=== PATIENT | male | born 1935 | race Caucasian/White ===

== ENCOUNTER → 2016-04-24 | Outpatient (CLI) | payer BC ==
[~2016-04-24] MED LIST: ACET-1325; ALFU10TA30 PO; ASPI81TA28 PO; ATOR-22 PO; FRS/40 PO; LORA-741 PO; NTRGSL/4 UT; OFLO0.3S OP; PANT40TA PO; PRED1SUS3 OPL; SPIR50TA2 PO
== END | disposition home or self-care (01) ==
LOC: C.LABSPEC 12:17
PROVIDERS: ATTEND Urology
DX: N52.9 Male erectile dysfunction, unspecified (principal); R97.20 Elevated prostate specific antigen [PSA]

== ENCOUNTER → 2016-06-21 | Outpatient (CLI) | payer BC ==
[~2016-06-21] MED LIST changes: +ALFU10TA2 PO; -ALFU10TA30 PO; +ALLO100T PO; +CYCL0.052 OP; +PROM12.57 PO; +PROP10TA7 PO; +PRT/20 PO; +TEST1INJ2 INJ
[2016-06-21 18:03] LABS: BASO % 0.3 %; BASO ABS # 0.02 K/uL (0-0.2); COMPLETE YES; EOS % 1.2 %; HEMATOCRIT 50.5 % (42-52); IG% 0.3 %; LYMPH % 20.3 %; LYMPH ABS # 1.58 K/uL (1.2-3.4); MEAN CELL VOLUME 97.7 fL (80-100); MEAN CORPUSCULAR HEMOGLOBIN 31.5 pg (25-34); MEAN CORPUSCULAR HGB CONC 32.3 g/dl (32-36); MEAN PLATELET VOLUME 11.3 fL (7.4-10.4); MONO % 11.7 %; NEUT % 66.2 %; PLATELET COUNT 146 K/uL (130-400); RED BLOOD COUNT 5.17 M/uL (4.7-6.1); WHITE BLOOD COUNT 7.79 K/uL (4.8-10.8)
--- NOTE | 2016-06-27 11:33 | CODING QUERY MEDICAL NECESSITY ---
CQSUPPORTING DIAGNOSIS NEEDED A supporting diagnosis is required for the test/procedure performed on this patient in order for us to be reimbursed by the patient's insurance. Please provide a supporting diagnosis for the following test/procedure listed below next to the test name along with your signature. *If there is no additional diagnosis for this patient that would support the following test/procedure please document that below next to the test/procedure. Test(s)/Procedure(s) that require a supporting diagnosis: DOS 06/21/16 BLOOD COUNT Provider Signature: Date: Thank you Loraine Garcia [employer] Once completed, please kindly fax back to [phone] For questions please call [phone]
== END | disposition home or self-care (01) ==
LOC: C.LABSPEC 17:48
PROVIDERS: ATTEND Internal Medicine
DX: M19.072 Primary osteoarthritis, left ankle and foot (principal); R60.9 Edema, unspecified

== ENCOUNTER → 2016-12-17 | Outpatient (CLI) | payer BC ==
[~2016-12-17] MED LIST changes: -ALFU10TA2 PO; +ALFU10TA30 PO; -ALLO100T PO; -CYCL0.052 OP; -PROM12.57 PO; -PROP10TA7 PO; -PRT/20 PO; -TEST1INJ2 INJ
[2016-12-17 13:43] LABS: ALT/SGPT 25 U/L (12-78); AST/SGOT 18 U/L (15-37); BLOOD UREA NITROGEN 38 mg/dl (7-18); BUN/CREATININE RATIO 20.8 (10-20); CALCIUM 8.7 mg/dl (8.5-10.1); CARBON DIOXIDE 28 mmol/L (21-32); CHLORIDE 102 mmol/L (98-107); CHOLESTEROL 108 mg/dl (0-200); CREATININE 1.84 mg/dl (0.60-1.40); GLUCOSE 93 mg/dl (70-99); POTASSIUM 3.7 mmol/L (3.5-5.1); SODIUM 139 mmol/L (136-145)
[2016-12-17 13:47] LABS: ALB/GLOB RATIO 1.1 (0.9-2); ALKALINE PHOSPHATASE 90 U/L (45-117); CHOLESTEROL/HDL RATIO 2.4; HDL CHOLESTEROL 45 mg/dl; TRIGLYCERIDES 168 mg/dl (0-150); VERY LOW DENSITY LIPOPROT CALC 34 mg/dl
== END | disposition home or self-care (01) ==
LOC: C.LABSPEC 12:10
PROVIDERS: ATTEND Internal Medicine
DX: Z00.00 Encounter for general adult medical examination without abnormal findings (principal); N17.9 Acute kidney failure, unspecified; R73.9 Hyperglycemia, unspecified; I10 Essential (primary) hypertension; N40.0 Benign prostatic hyperplasia without lower urinary tract symptoms

== ENCOUNTER → 2017-01-27 | Outpatient (CLI) | payer BC ==
[~2017-01-27] MED LIST changes: +ALFU10TA2 PO; -ALFU10TA30 PO
[2017-01-27 14:31] LABS: BLOOD UREA NITROGEN 29 mg/dl (7-18); BUN/CREATININE RATIO 20.2 (10-20); CALCIUM 8.7 mg/dl (8.5-10.1); CARBON DIOXIDE 35 mmol/L (21-32); CHLORIDE 102 mmol/L (98-107); CHOLESTEROL 102 mg/dl (0-200); CHOLESTEROL/HDL RATIO 2.1; CREATININE 1.44 mg/dl (0.60-1.40); GLUCOSE 111 mg/dl (70-99); HDL CHOLESTEROL 48 mg/dl; POTASSIUM 4.5 mmol/L (3.5-5.1); SODIUM 139 mmol/L (136-145); TRIGLYCERIDES 149 mg/dl (0-150); VERY LOW DENSITY LIPOPROT CALC 30 mg/dl
== END | disposition home or self-care (01) ==
LOC: C.LABSPEC 13:11
PROVIDERS: ATTEND Internal Medicine
DX: Z00.00 Encounter for general adult medical examination without abnormal findings (principal); I25.10 Atherosclerotic heart disease of native coronary artery without angina pectoris; E78.5 Hyperlipidemia, unspecified

== ENCOUNTER 2017-01-30 09:32 | Observation (INO) | payer BC ==
[~2017-01-30] VITALS: Ht 162.6 cm; Wt 66.0 kg
[2017-01-30] MEDS ORDERED: SODIUM CHLORIDE 0.9% 1000ML 1,000 ML IV SCH (10:11)
--- NOTE | 2017-01-30 10:36 | DIAGNOSTIC IMAGING REPORT ---
CHEST ONE VIEW PORTABLE CLINICAL HISTORY: Stroke COMPARISON STUDY: 03/20/2015 FINDINGS: There are postsurgical changes of a midline sternotomy. The heart is mildly enlarged. There are low lung volumes with hypoventilatory changes the lung bases. There is mild blunting of the right lateral costophrenic angle.[ There is no evidence of failure. IMPRESSION: Low lung volumes with hypoventilatory changes at the lung bases. Suspected small right pleural effusion. Electronically signed by: Avni Lawler M.D. 01/30/2017 10:35 AM Dictated Date/Time: 01/30/2017 10:34 AM
[2017-01-30 10:43] LABS: HEMATOCRIT 52.5 % (42-52); MEAN CELL VOLUME 98.7 fL (80-100); MEAN CORPUSCULAR HEMOGLOBIN 31.4 pg (25-34); MEAN CORPUSCULAR HGB CONC 31.8 g/dl (32-36); RED BLOOD COUNT 5.32 M/uL (4.7-6.1); WHITE BLOOD COUNT 8.71 K/uL (4.8-10.8)
[2017-01-30 10:55] LABS: INR 1.1 (0.9-1.1); PARTIAL THROMBOPLASTIN RATIO 1.1; PROTHROMBIN TIME (PATIENT) 11.2 SECONDS (9.0-12.0)
[2017-01-30 10:58] LABS: BUN/CREATININE RATIO 22.1 (10-20); CALCIUM 8.9 mg/dl (8.5-10.1); CREATININE 1.31 mg/dl (0.60-1.40); MAGNESIUM 2.6 mg/dl (1.8-2.4); POTASSIUM 4.5 mmol/L (3.5-5.1)
[2017-01-30 11:05] LABS: BASO % 0.1 %; BASO ABS # 0.01 K/uL (0-0.2); COMPLETE YES; EOS % 1.6 %; IG% 0.7 %; LYMPH % 15.6 %; LYMPH ABS # 1.36 K/uL (1.2-3.4); MEAN PLATELET VOLUME 11.2 fL (7.4-10.4); MONO % 7.9 %; NEUT % 74.1 %; PLATELET COUNT 64 K/uL (130-400)
--- NOTE | 2017-01-30 11:19 | DIAGNOSTIC IMAGING REPORT ---
HEAD WITHOUT CONTRAST (CT) CT DOSE: 638.56 mGycm HISTORY: Mental status change Stroke TECHNIQUE: Multiaxial CT images of the head were performed without the use of intravenous contrast. A dose lowering technique was utilized adhering to the principles of ALARA. Comparison: 01/30/2012 Findings: The paranasal sinuses and mastoid air cells are clear. The calvarium and skull base are intact. The ventricles and sulci are within normal limits. There is no mass, hematoma, midline shift, or acute infarct. Impression: No acute intracranial abnormality. The above report was generated using voice recognition software. It may contain grammatical, syntax or spelling errors. Electronically signed by: Hal Walker M.D. 01/30/2017 11:18 AM Dictated Date/Time: 01/30/2017 11:15 AM
[2017-01-30] MEDS ORDERED: PROM12.57 PO (12:00)
[2017-01-30] MEDS ORDERED: PRT/20 PO (12:00)
[2017-01-30] MEDS ORDERED: ALLO100T PO (12:00)
[2017-01-30] MEDS ORDERED: FRS/40 PO ×2 (12:00)
[2017-01-30] MEDS ORDERED: PROP10TA7 PO (12:03)
[2017-01-30] MEDS ORDERED: CYCL0.052 OP (12:03)
[2017-01-30] MEDS ORDERED: TEST1INJ2 INJ (12:03)
[2017-01-30] MEDS ORDERED: NITROGLYCERIN 0.4 MG SL PER TAB CHARGE UT PRN (12:15)
[2017-01-30] MEDS ORDERED: CLOPIDOGREL BISULFATE 75 MG TAB PO ONE (12:15)
[2017-01-30] MEDS ORDERED: CLOPIDOGREL BISULFATE 75 MG TAB ONE (12:35)
[2017-01-30 13:13] VITALS: O2SAT 95
[2017-01-30] MEDS ORDERED: IV FLUIDS COMPLETED PRN (13:45)
[2017-01-30 14:11] VITALS: Ht 162.6 cm; Wt 66.0 kg
[2017-01-30 14:56] VITALS: BP 128/63; PULSE 53; TEMP 36.7; O2SAT 94
--- NOTE | 2017-01-30 15:25 | EMERGENCY ROOM VISIT NOTE ---
History Report prepared by Deandre: Mark Thomson Under the Supervision of: Dr. Davie Bond M.D. First contact with patient: 09:59 Chief Complaint: WEAKNESS Stated Complaint: NUMBNESS IN LEFT HAND Nursing Triage Summary: left arm weakness since this AM History of Present Illness The patient is a 81 year old male who presents to the Emergency Room with complaints of constant left hand weakness beginning at 6 AM this morning upon wakening. 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 His symptoms were present upon waking up today four hours ago (6:00 am). His symptoms were not present upon falling asleep last night 13 hours ago (9:00 pm) . The patient has a history of CVA in 2012 for which is on aspirin. He is not on any other blood thinning medication. He had a right carotid endarterectomy following this initial stroke. The patient denies any numbness, problems with speech, headache, neck pain, chest pain, SOB, abdominal pain, diarrhea, or urinary symptoms. He denies any new problems with balance, or problems with his vision. Source of History: patient Onset: 6 AM today Position: hand (left) Quality: other (weakness) Timing: constant Associated Symptoms: No headache, No neck pain, No chest pain, No SOB, No abdominal pain, No diarrhea, No urinary symptoms, No numbness Note: The patient denies any problems with speech. He denies any new problems with balance, or problems with his vision. Review of Systems See HPI for pertinent positives & negatives. A total of 10 systems reviewed and were otherwise negative. Past Medical & Surgical Medical Problems: (1) Acute bronchitis (2) CVA (cerebral vascular accident) (3) Heart disease (4) TIA/?CVA (5) TIA/?CVA, CAD, Surgical Problems: (1) H/O carotid endarterectomy Family History No pertinent family history stated. Social History Smoking Status: Never Smoker Alcohol Use: none Marital Status: Current/Historical Medications Scheduled Alfuzosin Hcl (Uroxatral), 10 MG PO DINNER Allopurinol (Zyloprim), 100 MG PO QAM Aspirin (Aspirin Ec), 81 MG PO 1700 Atorvastatin (Lipitor), 20 MG PO DINNER Cyclosporine (Ophth) (Restasis), 1 DROP OP BID Furosemide (Lasix), 80 MG PO QAM Furosemide (Lasix), 40 MG PO NOON Lorazepam (Ativan), 0.5 MG PO BID Nitroglycerin (Nitrostat), 0.4 MG UT PRN Pantoprazole (Protonix), 20 MG PO QAM Propranolol (Inderal), 10 MG PO QAM Spironolactone (Aldactone), 25 MG PO QAM Testosterone Cypionate (Testosterone Cypionate), 100 MG INJ MONTHLY Scheduled PRN Promethazine (Phenergan ), 25 MG PO UD PRN for Nausea Allergies Coded Allergies: No Known Allergies (Verified , 01/30/17) Physical Exam Vital Signs Date Time Temp Pulse Resp B/P (MAP) Pulse Ox O2 Delivery O2 Flow Rate FiO2 01/30/17 12:00 63 18 125/74 95 Room Air 01/30/17 11:33 56 22 117/76 95 Room Air 01/30/17 10:34 97 Room Air 01/30/17 10:34 55 01/30/17 09:35 36.7 59 16 132/69 96 Room Air Physical Exam Constitutional: Vital signs reviewed. Eyes: Pupils are equal round reactive to light. Conjunctiva are noninjected. ENT: Pharynx is clear without erythema or exudate. Mucous membranes are moist. Neck supple without meningeal signs. Respiratory: Clear to auscultation bilaterally. Breath sounds are equal bilaterally. Cardiovascular: Regular rate and rhythm. No rubs or gallops. GI: Soft, nondistended and nontender. Bowel sounds are present. Musculoskeletal: No peripheral edema. No lower extremity tenderness. Integumentary: No cyanosis. Neurological: The patient is awake and alert. Cranial nerves II-XII are intact. Sensation is intact to light touch all extremities. Normal speech. No limb ataxia. Left pronator drift. 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 Psychiatric: Normal affect. Medical Decision & Procedures ER Provider Diagnostic Interpretation: Radiology results as stated below per my review and the radiologist's interpretation: HEAD WITHOUT CONTRAST (CT) Findings: The paranasal sinuses and mastoid air cells are clear. The calvarium and skull base are intact. The ventricles and sulci are within normal limits. There is no mass, hematoma, midline shift, or acute infarct. Impression: No acute intracranial abnormality. The above report was generated using voice recognition software. It may contain grammatical, syntax or spelling errors. Electronically signed by: Hal Walker M.D. 01/30/2017 11:18 AM CHEST ONE VIEW PORTABLE FINDINGS: There are postsurgical changes of a midline sternotomy. The heart is mildly enlarged. There are low lung volumes with hypoventilatory changes the lung bases. There is mild blunting of the right lateral costophrenic angle.[ There is no evidence of failure. IMPRESSION: Low lung volumes with hypoventilatory changes at the lung bases. Suspected small right pleural effusion. Electronically signed by: Avni Lawler M.D. Laboratory Results 01/30/17 10:25 Red Blood Count 5.32, Mean Corpuscular Volume 98.7, Mean Corpuscular Hemoglobin 31.4, Mean Corpuscular Hemoglobin Concent 31.8, Mean Platelet Volume 11.2, Neutrophils (%) (Auto) 74.1, Lymphocytes (%) (Auto) 15.6, Monocytes (%) (Auto) 7.9, Eosinophils (%) (Auto) 1.6, Basophils (%) (Auto) 0.1, Neutrophils # (Auto) 6.45, Lymphocytes # (Auto) 1.36, Monocytes # (Auto) 0.69, Eosinophils # (Auto) 0.14, Basophils # (Auto) 0.01 01/30/17 10:25 Test 01/30/17 10:25 01/30/17 10:32 White Blood Count 8.71 K/uL (4.8-10.8) Red Blood Count 5.32 M/uL (4.7-6.1) Hemoglobin 16.7 g/dL (14.0-18.0) Hematocrit 52.5 % (42-52) Mean Corpuscular Volume 98.7 fL (80-100) Mean Corpuscular Hemoglobin 31.4 pg (25-34) Mean Corpuscular Hemoglobin Concent 31.8 g/dl (32-36) Platelet Count 64 K/uL (130-400) Mean Platelet Volume 11.2 fL (7.4-10.4) Neutrophils (%) (Auto) 74.1 % Lymphocytes (%) (Auto) 15.6 % Monocytes (%) (Auto) 7.9 % Eosinophils (%) (Auto) 1.6 % Basophils (%) (Auto) 0.1 % Neutrophils # (Auto) 6.45 K/uL (1.4-6.5) Lymphocytes # (Auto) 1.36 K/uL (1.2-3.4) Monocytes # (Auto) 0.69 K/uL (0.11-0.59) Eosinophils # (Auto) 0.14 K/uL (0-0.5) Basophils # (Auto) 0.01 K/uL (0-0.2) RDW Standard Deviation 56.3 fL (36.4-46.3) RDW Coefficient of Variation 15.5 % (11.5-14.5) Immature Granulocyte % (Auto) 0.7 % Immature Granulocyte # (Auto) 0.06 K/uL (0.00-0.02) Prothrombin Time 11.2 SECONDS (9.0-12.0) Prothromb Time International Ratio 1.1 (0.9-1.1) Activated Partial Thromboplast Time 27.4 SECONDS (21.0-31.0) Partial Thromboplastin Ratio 1.1 Anion Gap 4.0 mmol/L (3-11) Est Creatinine Clear Calc Drug Dose 38.3 ml/min Estimated GFR () 59.6 Estimated GFR (Non- 51.4 BUN/Creatinine Ratio 22.1 (10-20) Calcium Level 8.9 mg/dl (8.5-10.1) Magnesium Level 2.6 mg/dl (1.8-2.4) Bedside Glucose 89 mg/dl (70-99) Laboratory results as reviewed by me. Medications Administered Medications (Trade) Dose Ordered Sig/Tripp Route Start Time Stop Time Status Last Admin Dose Admin Sodium Chloride 1,000 ml @ 50 mls/hr Q20H IV 01/30/17 10:11 01/30/17 13:43 DC 01/30/17 11:20 50 MLS/HR Clopidogrel Bisulfate (plAVix TAB) 75 mg STK-MED ONCE .ROUTE 01/30/17 12:35 01/30/17 12:36 DC 01/30/17 12:37 75 MG ECG Indication: weakness Rate (beats per minute): 49 Rhythm: sinus bradycardia Findings: no acute ischemic change, no ectopy, other (Left atrial enlargement. ) ED Course 1005: The patient was evaluated in room C4. A complete history and physical exam was performed. 1011: Ordered Sodium Chloride 1000 ml @ 50 mls/hr IV. 1127: Upon reevaluation, the patient is resting comfortably. He denies any chest pain or shortness of breath. I discussed tonight's findings with him. He verbalized agreement of the treatment plan. The patient was discharged home. Medical Decision This is a 81-year-old male who presents with left hand weakness and numbness. Differential diagnosis includes CVA, TIA, cervical radiculopathy, spinal cord lesion, metabolic derangement, intracranial mass. I did perform a limited focused review of portions of the patient's old chart on the electronic medical record. The patient had MRI brain in 2011 which showed a right frontal infarct. I did evaluate the patient as noted above. The patient is presenting with left handed weakness and numbness starting this morning. He woke up with the symptoms and is outside the TPA window. On exam he has dysesthesia and weakness to the left hand with left-sided pronator drift. He denies having any neck discomfort. IV access was established. The patient was placed on a continuous frame polisher. I did order and personally review the patient's 12- lead EKG and chest x-ray as described above. I did order and review the patient 's blood work as noted in the electronic medical record. His troponin is slightly elevated but he has had no chest discomfort or shortness of breath. I did order a CT of the head. I did review the images myself as well as the radiology report as described above. There is no evidence of acute CVA or mass or bleed. I did discuss the test results with the patient. I did recommend hospitalization for MRI of the brain as well as repeat cardiac enzymes. I did discuss the case with his primary care physician and the hospitalist. Medication Reconcilliation Current Medication List: was personally reviewed by me Blood Pressure Screening Patient's blood pressure: Elevated blood pressure Blood pressure disposition: Referred to PCP Consults Time Called: 1123 Consulting Physician: Dr. Gamez -[facility] Returned Call: [phone] Gamez of [facility]. We discussed the patient and his results. The patient will be further evaluated by Dr. Pierce Gamboa. Impression Primary Impression: Acute CVA (cerebrovascular accident) Additional Impression: Elevated troponin Scribe Attestation The scribe's documentation has been prepared under my direct and personally reviewed by me in its entirety. I confirm that the note above accurately reflects all work, treatment, procedures, and medical decision making performed by me. Departure Information Dispostion Being Evaluated By Hospitalist Referrals Mario Burgos M.D. (PCP) Patient Instructions My [facility] Stroke History Time Last Known Well 2100 01/29/17 Stroke t-PA Criteria Reviewed Does NOT meet criteria for t-PA Reason t-PA Not Given Treatment not indicated (outside of time-window) Problem Qualifiers
[2017-01-30 16:27] LABS: CKMB/CK RATIO 3.8 (0-3.0)
[2017-01-30] MEDS ORDERED: ASPIRIN 81 MG ECTAB PO SCH (17:00)
[2017-01-30] MEDS ORDERED: GADAVIST IV PRN (17:00)
--- NOTE | 2017-01-30 17:39 | DIAGNOSTIC IMAGING REPORT ---
MRI OF THE BRAIN WITHOUT AND WITH IV CONTRAST CLINICAL HISTORY: TIA/?CVA. Left hand numbness. COMPARISON STUDY: MRI of the brain January 30, [address] performed earlier today. TECHNIQUE: Utilizing a 1.5 Odalys magnet and dedicated coil, multiplanar, multiecho imaging of the brain was performed pre and postcontrast administration. IV administration of 6.5 mL of Gadavist contrast was uneventful. FINDINGS: There is a 1 cm focus of restricted diffusion within the anterior right parietal lobe shown on axial image 17 of 46. No mass effect or hemorrhage is present. No additional sites of acute infarction are present. Ventricular system is stable. Basilar cisterns are patent. There are no extra-axial collections. Flow-voids for the major intracranial vessels are present. There is no intracranial mass or pathologic enhancement. Calvarial signal is maintained. There is a small amount of fluid within left mastoid air cells. Scattered white matter T2 hyperintense foci suggest small vessel disease. IMPRESSION: 1. Small acute infarct within the right parietal lobe. No mass effect or hemorrhage. 2. Small amount of fluid within the left mastoid air cells. 3. Mild small vessel disease. Electronically signed by: Dion Salinas M.D. 01/30/2017 5:37 PM Dictated Date/Time: 01/30/2017 5:06 PM
[2017-01-30 19:07] VITALS: BP 102/63; PULSE 55; TEMP 36.7; O2SAT 93
[2017-01-30] MEDS ORDERED: LORAZEPAM 0.5 MG TAB PO PRN (20:45)
--- NOTE | 2017-01-30 20:56 | History and Physical ---
History & Physical Date of Service Jan 30, 2017. History & Physical ADMISSION DATE: 01/30/2017 CHIEF COMPLAINT: 81-year-old male admitted with acute onset of weakness in his left- hand. PRESENT ILLNESS: patient with multiple medical problems including coronary artery disease, status post one-vessel coronary artery bypass,bioprosthetic aortic valve, hypercholesterolemia, arterial hypertension, atherosclerotic vascular disease, status post right carotid endarterectomy, essential tremor, gout, hypogonadism. Patient woke up this morning on 6:00. He was complaining of weakness in his left hand. 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 He denied any associated headache or dizziness or lightheadedness. No blurred vision. No chest pain or shortness of breath. No nausea or vomiting. Patient called the office with these symptoms. I asked him to come to the emergency room for evaluation. He was continuing to complain of weakness in the left hand. No other associated symptoms. His workup was initiated. CT scan of the head without contrast did not show any abnormality. His weakness persisted. I saw the patient in the emergency room and he was admitted for further evaluation. PAST MEDICAL HISTORY: * coronary artery disease. He had a non-ST segment elevation myocardial infarction in 2005. He underwent stenting of the mid LAD. He also underwent angioplasty of the first diagonal branch. Angioplasty of the right coronary artery in the midportion was done but was not successful. * Subsequently on 03/23/2012 he underwent one-vessel coronary artery bypass graft with saphenous vein graft to the O2 sats marginal artery. This was the same time that he had his aortic valve replaced. * Aortic valve replacement for critical aortic stenosis. 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 * Arterial hypertension. Long-standing. treated. * Hyperlipidemia. * gout. Has had multiple attacks in the past. He is on allopurinol. * Essential tremor. Cone told with low-dose propranolol. * Hypogonadism. He does receive IM testosterone injections every month. 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 * Prostate enlargement and elevated PSA. Workup has been negative for any evidence of prostate cancer. * Duodenal and gastric ulcers diagnosed in 2013. * Hospitalization in 2011 with left hand weakness. At that time he had a small q right frontal CVA. * Left cataract surgery on 12/14/2014 * Right cataract surgery on 12/28/2014 * Left inguinal hernia repair on 06/02/2014 * Left carotid endarterectomy on 06/17/2013. SOCIAL HISTORY: he is . Has 3 children. Review of any smoking. No alcohol. No excessive coffee or tea. He is retired. He worked mostly in [employer],. FAMILY HISTORY: his father age 79 had a CVA. His mother at age 94 of natural causes. He has 2 brothers and 2 sisters. One sister had three-vessel coronary artery bypass graft at age 70. She is in her mid 70s now and doing well. One brother had a myocardial infarction also in his 70s. Doing well. One brother has dementia. One sister had breast cancer. She is now 8 years old and doing well. Children are doing well. ALLERGIES: NONE CURRENT MEDICATIONS: * allopurinol 100 mg daily * Multivitamin 2 tablets daily * Aspirin 81 mg daily * Uroxatral 10 mg daily * Lipitor 20 mg daily * Aldactone 25 mg daily * Lorazepam 0.5 mg twice a day if needed for anxiety * Furosemide 40 mg tablets. 2 tablets in the morning and one tablet in the evening * Propranolol 10 mg 3 times a day * Pantoprazole 40 mg twice a day * Restasis 0.5% drops one drop in each eye twice a day * Depakote testosterone 300 mg IM every month. REVIEW OF SYSTEMS: denied any headache. No dizziness no lightheadedness. No recent change in his vision. No earache sore throat or neck pain. No chest pain no shortness of breath. No abdominal pain. No nausea no vomiting. No problem with his bowel movements. No problem urinating. 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 Well nourished. No acute distress.weight 66 kg, height was 62.6 cm, BMI 25. VITAL SIGNS : Blood Pressure : 132/69, pulse 59, respirations 16, temperature 36.7, oxygen saturation 96% on room air. SKIN : Warm and dry. No rash. HEENT :Decreased vision left eye. Post cataract surgery. No mucosal abnormalities in his nose mouth or throat. NECK : Supple. No adenopathy. No thyromegaly. No JVD. status post left carotid endarterectomy. Bilateral carotid bruit. More pronounced on the left side. CHEST : Normal. Scar from prior surgery HEART: Regular heart tones with 2/6 systolic murmur. No rub no gallop. LUNGS: Clear. Normal breath sounds. ABDOMEN: Soft nontender. No organomegaly or masses. Good bowel sounds. BACK: No spine or CVA tenderness. EXTREMITIES : No edema clubbing or cyanosis. No joint or muscle tenderness. absent left dorsalis pedis pulse. other pulses were normal. NEUROLOGICAL EXAMINATION: He is alert and oriented. 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 Speech was normal. Balance and equilibrium normal. LABORATORY TEST; WBC count 8710, hemoglobin 16.7, hematocrit 52.5, platelet count 64,000. Prothrombin time 11.2, INR 1.1, PTT 27.4. Sodium 141, potassium 4.5, chloride 105, CO2 32, BUN 29, creatinine 1.31, glucose 96, calcium 8.9, magnesium 2.6, troponin I 0.062. CT scan of the head without contrast showed no abnormality. Chest x-ray showed evidence of hypoventilation. Small right pleural effusion noted. Electrocardiogram showed sinus bradycardia. No acute changes noted. 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 Most likely dealing with TIA or CVA. * Coronary artery disease with history of one-vessel coronary artery bypass graft and history of stenting of other vessels in the past. * Bioprosthetic aortic valve * Arterial hypertension * Hyperlipidemia * Essential tremor * Bradycardia * Thrombocytopenia * Gout * Hypogonadism * Enlargement of the prostate * Anxiety PLAN: patient was admitted to PCU with telemetry. Resuscitation level I. all his laboratory tests were ordered. Cardiac isoenzymes and electrocardiograms ordered. Echocardiogram was ordered. MRI of the brain without one and with contrast ordered. Carotid ultrasound was also ordered. He is on aspirin 81 mg daily. I added Plavix 75 mg daily. We'll complete his workup as indicated above. We'll decide on any further treatment. Will monitor the weakness in his left hand. As noted there is no other weakness or other limitation as far as his activity. We'll repeat a CBC. Patient was admitted under observation status.
[2017-01-30] MEDS ORDERED: ATORVASTATIN 20 MG TAB PO SCH (21:00)
--- NOTE | 2017-01-30 22:21 | DIAGNOSTIC IMAGING REPORT ---
CAROTID ARTERY ULTRASOUND CLINICAL HISTORY: Transient ischemic attack. Previous left carotid endarterectomy. COMPARISON STUDY: Carotid ultrasound June 16, 2014. TECHNIQUE: Real-time, grayscale, and color Doppler sonography of the carotid and vertebral arteries was performed. Images were viewed in the transverse and longitudinal planes. FINDINGS: There is moderate atherosclerotic plaque. Velocity measurements are listed below. COMMON CAROTID PEAK SYSTOLIC VELOCITY (CM/S): RIGHT 76 LEFT 77 ICA PEAK SYSTOLIC VELOCITY (CM/S): RIGHT 76 LEFT 72 The systolic ratios between the internal to common carotid arteries are normal. Antegrade flow is seen in the vertebral arteries. The external carotid arteries are patent. Elevated peak systolic velocity of 264 cm/s within the left external carotid artery was noted. Similar findings were shown on exam of June 16, 2014. Blood pressure could not be obtained in this patient due to IV. IMPRESSION: 1. No evidence of a hemodynamically significant stenosis within the bilateral internal carotid and common carotid arteries. Moderate atherosclerotic plaque within the proximal right internal carotid artery. 2. 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 Electronically signed by: Dion Salinas M.D. 01/30/2017 10:19 PM Dictated Date/Time: 01/30/2017 10:16 PM
[2017-01-31 00:02] VITALS: BP 92/52; PULSE 60; TEMP 36.7; O2SAT 96
[2017-01-31 03:25] LABS: HEMATOCRIT 48.6 % (42-52); MEAN CELL VOLUME 98.2 fL (80-100); MEAN CORPUSCULAR HEMOGLOBIN 31.3 pg (25-34); MEAN CORPUSCULAR HGB CONC 31.9 g/dl (32-36); RED BLOOD COUNT 4.95 M/uL (4.7-6.1); WHITE BLOOD COUNT 7.83 K/uL (4.8-10.8)
[2017-01-31 03:41] LABS: BUN/CREATININE RATIO 19.9 (10-20); CALCIUM 8.1 mg/dl (8.5-10.1); CREATININE 1.26 mg/dl (0.60-1.40); POTASSIUM 4.2 mmol/L (3.5-5.1)
[2017-01-31 03:53] LABS: MEAN PLATELET VOLUME 10.9 fL (7.4-10.4); PLATELET COUNT 53 K/uL (130-400)
[2017-01-31 03:54] VITALS: BP 118/69; PULSE 60; TEMP 36.6
[2017-01-31 03:54] LABS: CKMB/CK RATIO 3.7 (0-3.0)
[2017-01-31 04:12] LABS: COMPLETE YES; EOS % 2.4 %; IG% 0.6 %; LYMPH % 22.5 %; LYMPH ABS # 1.76 K/uL (1.2-3.4); MONO % 9.5 %
[2017-01-31 07:39] VITALS: BP 144/82; PULSE 64; TEMP 36.5; O2SAT 96
[2017-01-31] MEDS ORDERED: PROPRANOLOL HCL 10 MG TAB PO SCH (09:00)
[2017-01-31] MEDS ORDERED: SPIRONOLACTONE 25 MG TAB PO SCH (09:00)
[2017-01-31] MEDS ORDERED: ALLOPURINOL 100 MG TAB PO SCH (09:00)
[2017-01-31] MEDS ORDERED: ALFUZosin TAB 10 MG TAB PO SCH (09:00)
[2017-01-31] MEDS ORDERED: CLOPIDOGREL BISULFATE 75 MG TAB PO SCH (09:00)
--- NOTE | 2017-01-31 10:40 | ECHOCARDIOGRAM REPORT ---
*NOTICE TO RECEIVING REPUBLICAN AGENCY This information is strictly Confidential and protected under [place] law. [place] law prohibits you from making any further disclosure of this information unless further disclosure is expressly permitted by the written consent of the person to whom it pertains or is authorized by law. A general authorization for the release of medical or other information is not sufficient for this purpose. Hospital accepts no responsibility if the information is made available to any other person, INCLUDING THE PATIENT. Interpretation Summary * Name: TONY HUANG Study Date: 01/31/2017 08:48 AM BP: 118/69 mmHg * Patient Location: [facility] HR: 60 * : 1935 (M/d/yyyy) Gender: Male Height: 64 in * Age: 81 yrs Ethnicity: [place] Weight: 145 lb * Ordering Physician: Mario Burgos * Performed By: Mona Man RDCS * * Reason For Study: TIA * BSA: 1.7 m2 * The study was technically limited. * Compared to prior study, changes are noted. * -- Conclusions -- * There is a bioprosthetic aortic valve. * The prosthetic aortic valve is not well visualized. * The gradient is abnormal for this prosthetic aortic valve suggesting moderate stenosis. * No bioprosthetic aortic valve regurgitation visualized. * Ejection Fraction = 65-70%. * There is mild concentric left ventricular hypertrophy. * The left atrium is moderately dilated. * Diastolic dysfunction, Grade II (pseudonormalization pattern). * There is mild mitral regurgitation. * There is mild tricuspid regurgitation. * Th estimated systolic PAP is 33mmhg. * Injection of contrast documented no interatrial shunt. Procedure Details * A complete two-dimensional transthoracic echocardiogram was performed (2D, M-mode, Doppler and color flow Doppler). * A saline contrast injection was performed to assess for cardiac shunting. * The injection was performed through an intravenous line in the right arm. * The attending nurse who injected the saline contrast was PATRICE LUIS RN. * A total of 20 cc of agitated saline was given. Left Ventricle * The left ventricle is normal in size. * There is mild concentric left ventricular hypertrophy. * Ejection Fraction = 65-70%. * Left ventricular systolic function is normal. * Septal motion is consistent with post-operative state. Right Ventricle * The right ventricle is normal size. * The right ventricular systolic function is normal as assessed by tricuspid annular plane systolic excursion (TAPSE) (normal >1.5 cm). Atria * The left atrium is moderately dilated. * The right atrium is moderately dilated. * Injection of contrast documented no interatrial shunt. Mitral Valve * There is mild mitral annular calcification. * There is no mitral valve stenosis. * There is mild mitral regurgitation. Tricuspid Valve * The tricuspid valve is normal. * There is no tricuspid stenosis. * There is mild tricuspid regurgitation. * Th estimated systolic PAP is 33mmhg. Aortic Valve * There is a bioprosthetic aortic valve. * The prosthetic aortic valve is not well visualized. * The gradient is abnormal for this prosthetic aortic valve. * The gradient is abnormal for this prosthetic aortic valve suggesting moderate stenosis. No bioprosthetic aortic valve regurgitation visualized. * The valve opening cannot be assessed due to imaging artifacts from the prosthesis. Pulmonic Valve * The pulmonary valve is inadequately visualized, but the Doppler data is adequate for interpretation. * There is no pulmonic valvular stenosis. * Mild pulmonic valvular regurgitation. Great Vessels * The aortic root is normal size. Pericardium/Pleural * There is no pericardial effusion. Great Vessels * Normal inferior vena cava diameter and respiratory variation suggests normal central venous pressure. Left Ventricular Diastolic Function * Diastolic dysfunction, Grade II (pseudonormalization pattern). MMode 2D Measurements and Calculations IVSd 1.3 cm IVSs 2.2 cm LVIDd 3.9 cm LVIDs 2.6 cm LVPWd 1.3 cm LVPWs 1.5 cm IVS/LVPW 1.0 FS 33.0 % EDV(Teich) 65.4 ml ESV(Teich) 24.7 ml EF(Teich) 62.3 % EDV(cubed) 58.7 ml ESV(cubed) 17.6 ml EF(cubed) 70.0 % % IVS thick 66.1 % % LVPW thick 13.1 % LV mass(C)d 180.9 grams LV mass(C)dI 106.0 grams/m\S\2 LV mass(C)s 190.0 grams LV mass(C)sI 111.4 grams/m\S\2 SV(Teich) 40.7 ml SI(Teich) 23.9 ml/m\S\2 SV(cubed) 41.1 ml SI(cubed) 24.1 ml/m\S\2 LA dimension 4.4 cm asc Aorta Diam 3.0 cm LVOT diam 1.6 cm LVOT area 2.0 cm\S\2 LVAd ap4 21.8 cm\S\2 LVLd ap4 7.6 cm EDV(MOD-sp4) 54.2 ml EDV(sp4-el) 53.5 ml LVAs ap4 11.6 cm\S\2 LVLs ap4 5.6 cm ESV(MOD-sp4) 20.1 ml ESV(sp4-el) 20.5 ml EF(MOD-sp4) 62.9 % EF(sp4-el) 61.7 % LVAd ap2 21.9 cm\S\2 LVLd ap2 7.3 cm EDV(MOD-sp2) 54.9 ml EDV(sp2-el) 55.6 ml LVAs ap2 11.5 cm\S\2 LVLs ap2 5.7 cm ESV(MOD-sp2) 20.4 ml ESV(sp2-el) 19.5 ml EF(MOD-sp2) 62.8 % EF(sp2-el) 64.8 % LVLd %diff -3.21 % EDV(MOD-bp) 55.2 ml LVLs %diff 2.5 % ESV(MOD-bp) 19.9 ml EF(MOD-bp) 64.0 % SV(MOD-sp4) 34.1 ml SI(MOD-sp4) 20.0 ml/m\S\2 SV(MOD-sp2) 34.5 ml SI(MOD-sp2) 20.2 ml/m\S\2 SV(MOD-bp) 35.3 ml SI(MOD-bp) 20.7 ml/m\S\2 SV(sp4-el) 33.0 ml SI(sp4-el) 19.3 ml/m\S\2 SV(sp2-el) 36.1 ml SI(sp2-el) 21.1 ml/m\S\2 Doppler Measurements and Calculations MV E max prosper 87.2 cm/sec MV A max prosper 69.8 cm/sec MV E/A 1.2 MV dec time 0.25 sec Ao V2 max 312.1 cm/sec Ao max PG 40.1 mmHg Ao max PG (full) 36.4 mmHg Ao V2 mean 234.9 cm/sec Ao mean PG 26.2 mmHg Ao V2 VTI 88.1 cm CATHERINE(V,A) 0.61 cm\S\2 CATHERINE(V,D) 0.61 cm\S\2 LV V1 max PG 3.7 mmHg LV V1 max 96.6 cm/sec MR max prosper 273.5 cm/sec MR max PG 29.9 mmHg PA V2 max 39.6 cm/sec PA max PG 0.63 mmHg PI end-d prosper 104.8 cm/sec TR max prosper 253.8 cm/sec
[2017-01-31 11:31] VITALS: BP 134/79; PULSE 59; TEMP 36.7; O2SAT 95
[2017-01-31] MEDS ORDERED: PLV75 PO (11:56)
--- NOTE | 2017-01-31 11:59 | Discharge Instructions ---
Discharge Instructions Date of Service Jan 31, 2017. Admission Reason for Admission: Tia/?Cva Discharge Discharge Diagnosis / Problem: R parietal CVA, Coronarry artery disease Discharge Goals Goal(s): Decrease discomfort, Improve function, Increase independence, Improve disease control Activity Recommendations Activity Limitations: resume your previous activity . Instructions / Follow-Up Instructions / Follow-Up Dr Gamez in 1 week Current Hospital Diet Patient's current hospital diet: AHA Diet (Heart Healthy) Discharge Diet Recommended Diet: AHA Diet (Heart Healthy) Pending Studies Studies pending at discharge: no Laboratory Results Lipid Panel Test 01/27/17 08:30 Range/Units Triglycerides Level 149 0-150 mg/dl Cholesterol Level 102 0-200 mg/dl HDL Cholesterol 48 mg/dl LDL Cholesterol Direct 53 mg/dl Cholesterol/HDL Ratio 2.1 LDL Cholesterol, Calculated mg/dl Medical Emergencies . Who to Call and When: Medical Emergencies: If at any time you feel your situation is an emergency, please call 911 immediately. . Non-Emergent Contact Non-Emergency issues call your: Primary Care Provider . . "Provider Documentation" section prepared by Mario Gamez. . VTE Core Measure Inpt VTE Proph given/why not?: Other Anticoagulation
[2017-01-31 12:26] VITALS: BP 134/79; PULSE 59; TEMP 36.7; O2SAT 95
--- NOTE | 2017-01-31 23:21 | Progress Note ---
Progress Note Date of Service Jan 31, 2017. 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 His medical problems also include coronary artery disease, bioprosthetic aortic, arterial hypertension, diastolic dysfunction, hyperlipidemia. Patient was admitted. His workup was initiated. His MRI of the brain showed evidence of acute right parietal CVA. Very minimal .his echocardiogram showed evidence of diastolic dysfunction. Bioprosthetic aortic. His ejection fraction was normal He is doing. Denied any new problems or complaints.weakness in vice president client services resolved. No headache or dizziness or lightheadedness. No chest pain no shortness of breath. No abdominal pain. No pain in his back or extremities. He is ambulating very one. EXAMINATION Well-developed in no distress. Vital signs blood pressure 134/86, pulse 69, respiration 18, temperature 36.7, oxygen saturation 95% on room air. Skin is warm and dry. No rash. HEENT decreased vision left eye appears chronic. Neck supple without lymph node or thyroid enlargement. No JVD. Bilateral carotid bruit. Heart regular heart sounds with 2/6 systolic murmur. Lungs are clear. Abdomen soft nontender. Extremities no edema clubbing or cyanosis Neurological examination: Alert and oriented without deficits. His left vice president client services is normal. Laboratory tests his troponin was 0.053. It is coming down. His platelet count remained decreased. ASSESSMENT * Right parietal CVA * Coronary artery disease * Bioprosthetic aortic * Diastolic dysfunction * Thrombocytopenia * Hypercholesterolemia PLAN: * he is doing well. Deficit resolved. * He is on Plavix and aspirin * We need to monitor his platelet count * He was discharged home today * Followup in the office in one week
== END 2017-01-31 13:05 | disposition home or self-care (01) ==
LOC: C.EDB 09:33 → EDBEDREQ 12:41 → C.MED 13:11 → ENRESERV 13:29 → EDBEDREQ 13:47
PROVIDERS: ADMIT Internal Medicine; ATTEND Internal Medicine
DX: I63.9 Cerebral infarction, unspecified (principal); I25.10 Atherosclerotic heart disease of native coronary artery without angina pectoris; I10 Essential (primary) hypertension; E78.5 Hyperlipidemia, unspecified; G25.0 Essential tremor; R00.1 Bradycardia, unspecified; D69.6 Thrombocytopenia, unspecified; E29.1 Testicular hypofunction; N40.0 Benign prostatic hyperplasia without lower urinary tract symptoms; M10.9 Gout, unspecified; F41.9 Anxiety disorder, unspecified; Z86.73 Personal history of transient ischemic attack (TIA), and cerebral infarction without residual deficits; Z79.82 Long term (current) use of aspirin; Z79.899 Other long term (current) drug therapy; Z95.1 Presence of aortocoronary bypass graft; Z95.2 Presence of prosthetic heart valve

== ENCOUNTER → 2017-04-03 | Outpatient (CLI) | payer BC ==
[~2017-04-03] MED LIST changes: -ACET-1325; +ALLO100T PO; +CYCL0.052 OP; -OFLO0.3S OP; -PANT40TA PO; +PLV75 PO; -PRED1SUS3 OPL; +PROM12.57 PO; +PROP10TA7 PO; +PRT/20 PO; +TEST1INJ2 INJ
== END | disposition home or self-care (01) ==
LOC: C.LABSPEC 13:17
PROVIDERS: ATTEND Urology
DX: R97.20 Elevated prostate specific antigen [PSA] (principal)

== ENCOUNTER 2019-06-23 09:27 | Observation (INO) ==
[2019-06-23] MEDS ORDERED: NITROGLYCERIN SL 0.4 MG/TAB TAB SL PRN ×2 (09:43→12:56)
[2019-06-23] MEDS ORDERED: ASPIRIN CHEW 324 MG PO STA (09:43)
--- NOTE | 2019-06-23 09:50 | Emergency Department Note ---
Impression & Plan Atypical chest pain, CKD (chronic kidney disease) stage 3, GFR 30-59 ml/min ED Provider Note NAME: TONY HUANG AGE: 84 SEX: M : 1935 ARRIVES VIA: Walk-In INFORMANT: Patient, ED PROVIDER(S): Nagi St MD Chief Complaint: Chest pain HPI: Patient presents with complaint of chest pain. Patient states this began Friday. Has been intermittent. Primarily with sitting up and being ambulatory. Patient states is exertional. Describes as a tightness. It is not constant. He did take nitro at 7:30 AM which did make it better. Patient has no active chest pain. Prior history of ID. He did take 1 baby aspirin this morning. No coronavirus testing, sick contacts, fevers, chills, cough. Denies history of PE or DVT. Patient states he has not had any increasing leg swelling or weight gain. The patient states he is compliant with his medications including his diuretic. ROS: See HPI for pertinent positives and negatives. A total of 10 systems were reviewed and otherwise negative. Past medical history: See below Surgical history: See below Social history: See below Physical Exam: GENERAL: Well appearing, well nourished, NAD, non-toxic. Wearing a mask. EYE EXAM: Normal conjunctiva. PERRL, no anisocoria and EOM's grossly intact w/o pain. NECK: Supple, no nuchal rigidity, no adenopathy, non-tender. No signs of meningismus. LUNGS: Clear to auscultation. Normal chest wall mechanics. HEART: NSR, systolic ejection murmur noted. ABDOMEN: Abdomen soft, non-tender, normo-active bowel sounds, no masses, no rebound or guarding. BACK: No CVA TTP. SKIN: No rashes and no bruising. UPPER EXTREMITIES: Upper extremities are grossly normal. LOWER EXTREMITIES: Grossly normal, no edema. Negative Homans sign bilaterally. NEURO EXAM: A&O x3, cranial nerves II-XII grossly intact, normal speech, moves all 4 extremities on command w/o issue. Differential diagnoses: Cardiac ischemia, aortic dissection, pulmonary embolism, pneumothorax, pneumonia, pericarditis, myocarditis, esophageal rupture, GERD, cholecystitis, pancreatitis, musculoskeletal, as well as other pathologies. Course: Patient was seen and evaluated the bedside. A full history and physical exam was performed. I did speak with CALI Meng. The patient will be admitted under Dr. Guzman [facility] [place]. EKG: Indication: Chest pain Sinus rhythm, rate of 83, normal intervals, left axis deviation, T wave meka ening in lead III. PVCs noted. Imaging Studies: Radiology results as stated below per my review in the radiologist's interpretation: XR chest 1V portable CLINICAL HISTORY: Atypical chest pain COMPARISON STUDY: 01/30/2017 FINDINGS: The heart remains enlarged. There are postsurgical changes of midline sternotomy. There is no failure. There is a small right pleural effusion. There are minor right basilar atelectatic changes.[ IMPRESSION: 1. Cardiomegaly 2. Suspected persistent small right pleural effusion 3. No evidence of focal pulmonary consolidation ACT 112: Negative or not required by law. Electronically signed by: Avni Lawler M.D. 06/23/2019 9:54 AM Cardiac monitoring: An order was placed for continuous cardiac monitoring. The monitor shows a rate of 74 with sinus rhythm. MDM: Patient was seen and evaluated the bedside. Patient does have a known history of prior ID. Patient states that this does not necessarily feels similar to his prior ID but the patient does state that he did take a nitro this morning which improved his chest discomfort. No coronavirus contacts or concerns at this time. No cough no history DVT or PE. Non-smoker. Patient's EKG does show PVCs. No obvious ST elevation or depression at this time. Patient was given the risks of a full dose aspirin. Chest x-ray shows cardiomegaly. Patient does have mild white count but is not complain of any infectious symptoms. The patient has chronic CKD. BUN is slightly more elevated compared to before the patient was given some IV fluids. Chronically elevated troponin. Bilirubin is slightly elevated but the patient is no right upper quadrant pain no signs of jaundice at this time. Given the patient's prior history of ID with improvement with nitro and chest pain I did speak the on-call hospitalist agreed to further evaluate treat the patient. Patient was admitted to the medicine service for further observation and treatment. Past Med/Surg History Medical History Cardiac arrest Gastric ulcer Transient cerebral ischemia Surgical History Aortic valve replaced History of cardiac cath Hx of cataract extraction Hx of cholecystectomy Hx of inguinal hernia repair S/P skin biopsy Family History Father Stroke Hypertension Lung disease Social History marital status: current occupational status: retired Feels Safe at Home: Yes Smoking Status: Never smoker Hx Alcohol Use: No Hx Substance Use: No Allergies Allergies Allergy/AdvReac Type Severity Reaction Status Date / Time No Known Allergies Allergy Verified 06/23/19 10:39 Home Meds Home Medications Medication Instructions Recorded Confirmed alfuzosin 10 mg tablet,extended 10 mg PO QPM 05/25/19 06/23/19 release 24 hr allopurinol 100 mg tablet 100 mg PO DAILYBL 05/25/19 06/23/19 atorvastatin 20 mg tablet 20 mg PO QPM 05/25/19 06/23/19 clopidogrel 75 mg tablet 75 mg PO DAILYBL 05/25/19 06/23/19 cyclosporine 0.05 % eye drops in a 1 drp OPB DAILY 05/25/19 06/23/19 dropperette furosemide 40 mg tablet 80 mg PO QAM 05/25/19 06/23/19 lorazepam 0.5 mg tablet 0.5 mg PO HS 05/25/19 06/23/19 propranolol 10 mg tablet 10 mg PO DAILY 05/25/19 06/23/19 spironolactone 50 mg tablet 25 mg PO HS 05/25/19 06/23/19 vitamins A,C,[id number]-jart-[id number] 14,320 1 cap PO BID 05/25/19 06/23/19 unit-226 mg-200 unit capsule aspirin [Aspirin Low Dose] 81 mg PO DAILY 06/23/19 06/23/19 furosemide 40 mg PO DAILYBL 06/23/19 06/23/19 mometasone [Nasonex] 2 spray INTRANASAL DAILY 06/23/19 06/23/19 multivit with min-folic acid 1 tab PO DAILY 06/23/19 06/23/19 [Centrum MultiGummies] nitroglycerin 0.4 mg SUBLINGUAL UD PRN 06/23/19 06/23/19 pantoprazole 20 mg PO DAILY 06/23/19 06/23/19 Results & Data (ED) Vital Signs Vital Signs - 24 hr 06/23/19 09:31 06/23/19 09:41 06/23/19 09:55 Temperature 36.7 C Temperature Source Oral Pulse Rate 74 Pulse Rate [Left Finger] Respiratory Rate 18 Respiratory Depth Normal Blood Pressure 153/61 H Blood Pressure [Left Arm] Blood Pressure Mean 91 Blood Pressure Mean [Left Arm] Blood Pressure Position Sitting Pulse Oximetry 96 95 95 Oxygen Delivery Method Room Air Room Air Room Air Sepsis Recent Fever Within 48 Hours No Sepsis Action Taken by Nursing No Action Required 06/23/19 10:08 06/23/19 11:08 Temperature Temperature Source Pulse Rate Pulse Rate [Left Finger] 81 72 Respiratory Rate 20 20 Respiratory Depth Blood Pressure Blood Pressure [Left Arm] 103/53 L 122/69 Blood Pressure Mean Blood Pressure Mean [Left Arm] 69 86 Blood Pressure Position Pulse Oximetry 95 96 Oxygen Delivery Method Room Air Room Air Sepsis Recent Fever Within 48 Hours Sepsis Action Taken by Custodial Medications Current Medication List: was personally reviewed by me Laboratory Data Attestation: I reviewed the patient's lab results. Result diagrams: 06/23/19 09:50 06/23/19 09:50 Lab Results 06/23/19 06/23/19 06/23/19 Range/Units 09:50 09:50 09:50 WBC 15.49 H (4.8-10.8) K/uL RBC 5.17 (4.7-6.1) M/uL Hgb 17.7 (14.0-18.0) g/dL Hct 53.5 H (42-52) % MCV 103.5 H (80-100) fL MCH 34.2 H (25-34) pg MCHC 33.1 (32-36) g/dL RDW Std Deviation 60.9 H (36.4-46.3) fL RDW Coeff of Rhianna 16.0 H (11.5-14.5) % Plt Count 74 L (130-400) K/uL MPV 10.4 (7.4-10.4) fL Immature Gran % (Auto) 1.0 % Neut % (Auto) 83.7 % Lymph % (Auto) 8.2 % [place] % (Auto) 6.8 % Eos % (Auto) 0.3 % Baso % (Auto) 0.0 % Immature Gran # (Auto) 0.15 H (0.00-0.02) K/uL Neut # (Auto) 12.98 H (1.4-6.5) K/uL Lymph # (Auto) 1.27 (1.2-3.4) K/uL [place] # (Auto) 1.05 H (0.11-0.59) K/uL Eos # (Auto) 0.04 (0-0.5) K/uL Baso # (Auto) 0.00 (0-0.2) K/uL PT 11.5 (9.0-12.0) Seconds INR 1.1 (0.9-1.1) APTT 24.8 (21.0-31.0) Seconds PTT Ratio 0.9 Sodium 140 (136-145) mmol/L Potassium 4.1 (3.5-5.1) mmol/L Chloride 105 (98-107) mmol/L Carbon Dioxide 28 (21-32) mmol/L Anion Gap 7.0 (3-11) BUN 59 H (7-18) mg/dl Creatinine 1.90 H (0.6-1.4) mg/dl Est Cr Clr Drug Dosing 25.1 ml/min Est GFR ( Amer) 37.2 Est GFR (Non-Af Amer) 32.1 BUN/Creatinine Ratio 31.0 H (10-20) Glucose 156 H (70-99) mg/dl Calcium 9.0 (8.5-10.1) mg/dl Phosphorus 3.6 (2.5-4.9) mg/dl Magnesium 2.6 H (1.8-2.4) mg/dl Total Bilirubin 1.4 H (0.2-1) mg/dl AST 22 (15-37) U/L ALT 72 (12-78) U/L Alkaline Phosphatase 79 (45-117) U/L Troponin I 0.057 H* (0-0.045) ng/ml Total Protein 6.6 (6.4-8.2) gm/dl Albumin 3.5 (3.4-5.0) gm/dl Globulin 3.1 (2.5-4.0) gm/dl Albumin/Globulin Ratio 1.1 (0.9-2) Lipase 104 (73-393) U/L Administered Medications Discontinued Medications Aspirin (Aspirin) 243 mg PO NOW STA Stop: 06/23/19 09:44 Last Admin: 06/23/19 10:07 Dose: 243 mg Documented by: [id number] Sodium Chloride (Nss 1000ml) 250 mls @ 999 mls/hr IV .Q16M ONE Stop: 06/23/19 11:03 Last Infusion: 06/23/19 11:27 Dose: 0 mls/hr Documented by: [id number] Admin: 06/23/19 11:07 Dose: 999 mls/hr Documented by: [id number] Blood Pressure Blood Pressure Findings: Elevated blood pressure Blood Pressure Disposition: Referred to patients primary care provider Discharge Plan Visit Data Chief Complaint: Chest Pain Stated Complaint: CHEST PAIN ED Provider: Nagi St Discharge Problem: Atypical chest pain, CKD (chronic kidney disease) stage 3, GFR 30-59 ml/min Forms Stand Alone Forms: [facility] [employer] Prescriptions Prescriptions: No Action Restasis 0.05 % dropperette 1 drp OPB DAILY RF: 0 lorazepam 0.5 mg tablet 0.5 mg PO HS RF: 0 propranolol 10 mg tablet 10 mg PO DAILY RF: 0 allopurinol 100 mg tablet 100 mg PO DAILYBL RF: 0 clopidogrel 75 mg tablet 75 mg PO DAILYBL RF: 0 atorvastatin 20 mg tablet 20 mg PO QPM RF: 0 furosemide 40 mg tablet 80 mg PO QAM RF: 0 PreserVision AREDS [id number] capsule 1 cap PO BID RF: 0 spironolactone 50 mg tablet 25 mg PO HS RF: 0 alfuzosin 10 mg tablet extended release 24 hr 10 mg PO QPM RF: 0 furosemide 40 mg Tablet 40 mg PO DAILYBL RF: 0 aspirin [Aspirin Low Dose] 81 mg Tablet,Delayed Release (Dr/Ec) 81 mg PO DAILY RF: 0 pantoprazole 20 mg Tablet,Delayed Release (Dr/Ec) 20 mg PO DAILY RF: 0 nitroglycerin 0.4 mg Tablet, Sublingual 0.4 mg sublingual UD PRN (Reason: Chest Pain) RF: 0 mometasone [Nasonex] 50 mcg/actuation [place],Non-Aerosol 2 spray INTRANASAL DAILY RF: 0 Centrum MultiGummies 150 mcg Tablet,Chewable 1 tab PO DAILY RF: 0
--- NOTE | 2019-06-23 09:55 | XRay Report ---
XR chest 1V portable CLINICAL HISTORY: Atypical chest pain COMPARISON STUDY: 01/30/2017 FINDINGS: The heart remains enlarged. There are postsurgical changes of midline sternotomy. There is no failure. There is a small right pleural effusion. There are minor right basilar atelectatic change s.[ IMPRESSION: 1. Cardiomegaly 2. Suspected persistent small right pleural effusion 3. No evidence of focal pulmonary consolidation ACT 112: Negative or not required by law. Electronically signed by: Avni Lawler M.D. 06/23/2019 9:54 AM
[2019-06-23 10:23] LABS: Albumin Level 3.5 gm/dl (3.4-5.0); Creatinine Clr Calc Pharmacy 25.1 ml/min; Est GFR (African American) 37.2; Est GFR (Non-African American) 32.1; Magnesium 2.6 mg/dl (1.8-2.4); Potassium 4.1 mmol/L (3.5-5.1)
[2019-06-23 10:24] LABS: INR 1.1 (0.9-1.1); Partial Thromboplastin Ratio 0.9; Partial Thromboplastin Time 24.8 Seconds (21.0-31.0); Prothrombin Time 11.5 Seconds (9.0-12.0)
[2019-06-23 10:33] LABS: Albumin Globulin Ratio 1.1 (0.9-2); Bilirubin,Total 1.4 mg/dl (0.2-1); Globulin 3.1 gm/dl (2.5-4.0); Phosphorus 3.6 mg/dl (2.5-4.9); Total Protein 6.6 gm/dl (6.4-8.2); Troponin I 0.057 ng/ml (0-0.045)
[2019-06-23 10:42] LABS: Eosinophils # (auto) 0.04 K/uL (0-0.5); Eosinophils % (auto) 0.3 %; Hematocrit (blood only) 53.5 % (42-52); Hemoglobin 17.7 g/dL (14.0-18.0); Immature Granulocytes # (auto) 0.15 K/uL (0.00-0.02); Lymphocytes # (auto) 1.27 K/uL (1.2-3.4); Lymphocytes % (auto) 8.2 %; Mean Corpuscular Hemoglobin 34.2 pg (25-34); Mean Corpuscular Hgb Conc 33.1 g/dL (32-36); Mean Corpuscular Volume 103.5 fL (80-100); Mean Platelet Volume 10.4 fL (7.4-10.4); Monocytes # (auto) 1.05 K/uL (0.11-0.59); Monocytes % (auto) 6.8 %; Neutrophils # (auto) 12.98 K/uL (1.4-6.5); Neutrophils % (auto) 83.7 %; Platelet Count 74 K/uL (130-400); RDW Standard Deviation 60.9 fL (36.4-46.3); Red Blood Count 5.17 M/uL (4.7-6.1); White Blood Count 15.49 K/uL (4.8-10.8)
[2019-06-23] MEDS ORDERED: SODIUM CHLORIDE 0.9% 1000ML 250 ML IV ONE (10:48)
[2019-06-23] MEDS ORDERED: ACETAMINOPHEN 325 MG TAB PO PRN (12:56)
--- NOTE | 2019-06-23 13:01 | History & Physical Report ---
Date of Service June 23, 2019 Assessment & Plan (1) Chest pain: Admit telemetry obs Initial troponin 0.05 which may be baseline looking at his past troponins, will trend. No ST elevations/depressions on EKG Had a recent stress echo in July which showed no symptoms of angina or signs of ischemia. EF was 60%. Bioprosthetic aortic valve Patient sees Dr. Owen for cardiology - will consult [facility] cardiology (2) CKD (chronic kidney disease) stage 3, GFR 30-59 ml/min: Avoid nephrotoxins where possible. Creat 1.9 which appears to be about baseline (3) CAD (coronary artery disease): Continue asa, clopidogrel, furosemide, spironolactone, propranolol (4) Leukocytosis: WBCs 15 - patient recently finished a steroid taper. Will trend. No other s/s of infection at present (5) Elevated bilirubin: Bili 1.4, patient has history of cholecystectomy, transaminases wnl, No symptoms of abdominal pain, nausea or vomiting Trend CMP (6) Thrombocytopenia: Platelets 74, appears to be chronic, ow as far back as 2016 History of Present Illness Mr. Arauz presents with chest pressure that begins in his central chest and spreads across but does not radiate to arms or neck/jaw. It began last night during a stressful meeting and remained whenever he exerted himself. Currently he is not experiencing any chest pressure. He is unsure if this feels like his previous heart attack because that was a complication of valve surgery. He has not been ill, no cough, sob, fever, aches, chills, palpitations, lightheadedness, n/v/d, dysuria, hesitancy, or skin changes. He did recently have a right plantar wart removed surgically in Dr. Juan Gamboa's office and then had a prednisone regimen following it for swelling that would not resolve. 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, no alcohol Primary Care Provider: Mario Gamez MD Allergies Allergy/AdvReac Type Severity Reaction Status Date / Time No Known Allergies Allergy Verified 06/23/19 10:39 Home Medications Home Medications Medication Instructions Recorded Confirmed Type alfuzosin 10 mg tablet,extended 10 mg PO QPM 05/25/19 06/23/19 History release 24 hr allopurinol 100 mg tablet 100 mg PO DAILYBL 05/25/19 06/23/19 History atorvastatin 20 mg tablet 20 mg PO QPM 05/25/19 06/23/19 History clopidogrel 75 mg tablet 75 mg PO DAILYBL 05/25/19 06/23/19 History cyclosporine 0.05 % eye drops in a 1 drp OPB DAILY 05/25/19 06/23/19 History dropperette furosemide 40 mg tablet 80 mg PO QAM 05/25/19 06/23/19 History lorazepam 0.5 mg tablet 0.5 mg PO HS 05/25/19 06/23/19 History propranolol 10 mg tablet 10 mg PO DAILY 05/25/19 06/23/19 History spironolactone 50 mg tablet 25 mg PO HS 05/25/19 06/23/19 History vitamins A,C,V-flzh-ywpbfv 14,320 1 cap PO BID 05/25/19 06/23/19 History unit-226 mg-200 unit capsule aspirin [Aspirin Low Dose] 81 mg PO DAILY 06/23/19 06/23/19 History furosemide 40 mg PO DAILYBL 06/23/19 06/23/19 History mometasone [Nasonex] 2 spray INTRANASAL DAILY 06/23/19 06/23/19 History multivit with min-folic acid 1 tab PO DAILY 06/23/19 06/23/19 History [Centrum MultiGummies] nitroglycerin 0.4 mg SUBLINGUAL UD PRN 06/23/19 06/23/19 History pantoprazole 20 mg PO DAILY 06/23/19 06/23/19 History Past Med/Surg History Medical History Cardiac arrest Gastric ulcer Transient cerebral ischemia Surgical History Aortic valve replaced History of cardiac cath Hx of cataract extraction Hx of cholecystectomy Hx of inguinal hernia repair S/P skin biopsy Family History Father Stroke Hypertension Lung disease Social History Preferred Language: Slovak Communication Ability: Effective Tube Trailer Filler Required: No Beliefs That Will Affect Care: None marital status: / Current Living Situation: Alone current occupational status: retired Other Information That Helps Us Care for You: No Feels Safe at Home: Yes Safety Concerns: Feels Safe At This Time Smoking Status: Never smoker Hx Alcohol Use: No Hx Substance Use: No Review of Systems Review of Systems: All systems reviewed & are unremarkable except as noted in HPI & below Physical Exam Physical Exam: General: no distress Eyes: normal inspection, PERLL Respiratory: chest non tender, clear to auscultation, normal breath sounds, no respiratory distress, no accessory muscle use Cardiac: regular rate and rhythm, no rub or gallop, no murmur, no edema, no jvd GI/: active bowel sounds, no abd pain or tenderness, soft, non distended Extremities: normal range of motion, normal strength, non tender Neuro:alert, moves all extremities Psych: oriented x 3, normal mood and affect Skin: normal color, dry Results & Data Results & Data ([facility]) Vital Signs (Past 12 Hours) Vital Signs Temp Pulse Pulse Resp BP BP Pulse Ox 06/23/19 12:26 71 24 126/55 L 95 06/23/19 11:08 72 20 122/69 96 06/23/19 10:08 81 20 103/53 L 95 06/23/19 09:55 95 06/23/19 09:41 95 06/23/19 09:31 36.7 C 74 18 153/61 H 96 Code Status & VTE Plan VTE Prophylaxis Plan VTE Prophylaxis will be ordered: Yes Supervising Physician Co-Signing Physician Notes Attending Attestation and Admission Note: Pt seen/examined, chart reviewed, admission care plan d/w HOUSEKEEPING MANAGER Sandhya Medina. I agree w/ the aguilar components of her admission documentation except patient with an aortic valve murmur as noted below. 84yo male with h/o single-vessel CABG 2012, LAD stent, bioprosthetic AV, CKD stage 3, and chronic thrombocytopenia - presents with multiple episodes of chest tightness starting Friday evening. Episodes have resolved with rest. Had additional episode this am that resolved with SL nitro x 1. No associated nausea, vomiting, dyspnea, diaphoresis. No radiation of pain. PMH, PSH, allergies, meds, sochx, famhx - reviewed VSS, no fever gen - NAD neck - no JVD heart - RRR, s1 s2, 2-3/6 systolic murmur RUSB lungs - minimal rales right base abd - soft NT ND BS+ chest - no chest tenderness to palpation ext - no edema, pulses 2+ b/l labs - Cr 1.9 WBC 15 trop 0.057 EKG - NSR, PVC, LAE, IRBBB, no ST changes A/P: 1. chest tightness in setting of known CAD - concerning for unstable angina / possible mild NSTEMI 2. h/o AVR (bioprosthetic) 3. CKD stage 3 4. chronic thrombocytopenia - ITP?? 5. leukocytosis - agree likely from steroids; can't rule out due to stress from #[address] Ji from [facility] - start heparin drip low-dose given #1 above. Hydrate with NS in anticipation of heart cath tomorrow and known CKD. NPO after MN. Trend troponins. Await echo - re-eval AV and wall motion. Cont all cardiac meds including BB, asa, plavix, statin, etc. Last lipids was 11/2018 -- will repeat lipid profile in am. Repeat CBC in am for stability of platelets. Nickolas Guzman MD PG Care Time/CCT Total # of Minutes Spent Total Time Spent with Patient: Total time spent is greater than 50% in coordination of care (as documented) at patient's floor/unit and/or counseling patient: Coding Level of Care Code 01145 Initial Inpt Care Lvl 3 Diagnoses Chest pain R07.9 CKD (chronic kidney disease) stage 3, GFR 30-59 ml/min N18.3 CAD (coronary artery disease) I25.10 Leukocytosis D72.829 Elevated bilirubin R17 Thrombocytopenia D69.6
--- NOTE | 2019-06-23 13:47 | Cardiology Consultation ---
Date of Consultation June 23, 2019 Assessment & Plan (1) CAD (coronary artery disease), [place] coronary artery: (2) Elevated troponin I level: (3) CKD (chronic kidney disease) stage 3, GFR 30-59 ml/min: (4) S/P AVR (aortic valve replacement): (5) Thrombocytopenia: (6) H/O carotid endarterectomy: I had a long discussion with the patient regarding his exertional anginal symptoms and mildly elevated troponin. Is unclear whether his troponins are chronically elevated or associated with current anginal event. Further evaluation discussed including invasive approach with cardiac catheterization versus conservative medical management. Risk, benefits, alternatives to cardiac catheterization discussed at length. Specifically reviewed risks associated with chronic kidney disease. Patient voiced understanding and is agreeable to proceed with cardiac catheterization and potential percutaneous intervention if indicated. We will plan procedure in a.m. 06/24/2019. Cardiac enzymes will be trended x3 sets. Initiate anticoagulation with IV heparin. Place heparin on hold approximately 2 hours prior to procedure. Hold diuretic therapy at this time. Begin gentle IV hydration with normal saline. Repeat basic metabolic panel in a.m with results to be reviewed prior to proceeding with cardiac catheterization. Patient is a drug-eluting stent candidate as he is chronically treated with dual antiplatelet therapy. Thank you for allowing me to participate in the care of your patient. History of Present Illness Reason for Consultation: Angina, CAD, elevated troponin, AVR Requesting Physician: Dr. Guzman Attending Physician: Nickolas Guzman History of Present Illness 84-year-old patient admitted with chest discomfort. 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 The tightness gradually resolve, however continues to recur with minimal activity. He attempted to mow his lawn yesterday which is his usual team. Unfortunately was unable to keep up with the mower due to chest tightness and heaviness. He came into the house and rested. He was able to sleep through the night without recurrent pain. This morning he again experienced exertional chest discomfort and utilize 1 sublingual nitroglycerin. He has been pain-free since that time. His troponin is mildly elevated. ECG on admission demonstrates sinus rhythm with PVCs. No ischemic changes. Carries history of coronary disease and aortic valve replacement as detailed below. Renal insufficiency noted with a baseline creatinine of 1.9. Patient denies orthopnea, PND, lower extremity edema, or claudication. No palpitations, lightheadedness, dizziness, syncope, near syncope. Isolated 15 beat elena of paroxysmal supraventricular tachycardia recorded on telemetry this morning. Denies any noncompliance. Notes a generalized feeling of "unwellness" on a daily basis. This is unchanged. Typically follows with Dr. Owen of the cardiology practice. Cardiac history: 1. Coronary artery disease with history of LAD stenting and coronary artery bypass grafting x1 to obtuse marginal branch vessel 2012. 2. Carotid vascular disease status post left carotid endarterectomy. 3. 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 4. Moderate bioprosthetic aortic valve stenosis per most recent echocardiogram 07/2018 5. 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 Chronic thrombocytopenia 7. History of small right parietal lobe CVA 2017 on chronic dual antiplatelet therapy Allergies Allergy/AdvReac Type Severity Reaction Status Date / Time No Known Allergies Allergy Verified 06/23/19 10:39 Home Medications Home Medications Medication Instructions Recorded Confirmed Type alfuzosin 10 mg tablet,extended 10 mg PO QPM 05/25/19 06/23/19 History release 24 hr allopurinol 100 mg tablet 100 mg PO DAILYBL 05/25/19 06/23/19 History atorvastatin 20 mg tablet 20 mg PO QPM 05/25/19 06/23/19 History clopidogrel 75 mg tablet 75 mg PO DAILYBL 05/25/19 06/23/19 History cyclosporine 0.05 % eye drops in a 1 drp OPB DAILY 05/25/19 06/23/19 History dropperette furosemide 40 mg tablet 80 mg PO QAM 05/25/19 06/23/19 History lorazepam 0.5 mg tablet 0.5 mg PO HS 05/25/19 06/23/19 History propranolol 10 mg tablet 10 mg PO DAILY 05/25/19 06/23/19 History spironolactone 50 mg tablet 25 mg PO HS 05/25/19 06/23/19 History vitamins A,C,Z-mbvv-qamvgo 14,320 1 cap PO BID 05/25/19 06/23/19 History unit-226 mg-200 unit capsule aspirin [Aspirin Low Dose] 81 mg PO DAILY 06/23/19 06/23/19 History furosemide 40 mg PO DAILYBL 06/23/19 06/23/19 History mometasone [Nasonex] 2 spray INTRANASAL DAILY 06/23/19 06/23/19 History multivit with min-folic acid 1 tab PO DAILY 06/23/19 06/23/19 History [Centrum MultiGummies] nitroglycerin 0.4 mg SUBLINGUAL UD PRN 06/23/19 06/23/19 History pantoprazole 20 mg PO DAILY 06/23/19 06/23/19 History Patient History Medical History Cardiac arrest Gastric ulcer Transient cerebral ischemia Surgical History Aortic valve replaced History of cardiac cath Hx of cataract extraction Hx of cholecystectomy Hx of inguinal hernia repair S/P skin biopsy Family History Father Stroke Hypertension Lung disease Social History Preferred Language: Yoruba Communication Ability: Effective Donor Relations Associate Required: No Beliefs That Will Affect Care: None marital status: / Current Living Situation: Alone current occupational status: retired Other Information That Helps Us Care for You: No Feels Safe at Home: Yes Safety Concerns: Feels Safe At This Time Smoking Status: Never smoker Hx Alcohol Use: No Hx Substance Use: No Review of Systems Review of Systems: All systems reviewed & are unremarkable except as noted in HPI & below Physical Exam Constitutional: well developed, well nourished and average body habitus; no acute distress and not ill appearing Respiratory: normal respiratory effort; no respiratory distress, no labored breathing, no retractions and does not use accessory muscles Auscultation: no crackles, no rales, no rhonchi and no wheezes Cardiovascular: Rate/Rhythm: regular rate and regular rhythm Heart Sounds: normal S1, normal S2 and + murmur (3/6 mid peaking low pitched systolic ejection murmur heard throughout the precordium, however, best at the right second intercostal space with radiation to the carotid arteries bilaterally.); no cardiac rub Palpation: normal PMI Vessels: + carotid bruit (1/4 bilateral carotid bruits versus transmitted aortic murmur), femoral pulses present and radial pulses present; no JVD Extremities: no edema Results & Data ([facility]) Vital Signs (Past 12 Hours) Vital Signs Temp Pulse Pulse Resp BP BP Pulse Ox 06/23/19 12:26 71 24 126/55 L 95 06/23/19 11:08 72 20 122/69 96 06/23/19 10:08 81 20 103/53 L 95 06/23/19 09:55 95 06/23/19 09:41 95 06/23/19 09:31 36.7 C 74 18 153/61 H 96 (1) CAD (coronary artery disease), [place] coronary artery Associated angina: with unstable angina [place] vs. transplanted heart: [place] heart Qualified Code(s): I25.110 - Atherosclerotic heart disease of [place] coronary artery with unstable angina pectoris
--- NOTE | 2019-06-23 13:54 | Electrocardiogram Report ---
Test Reason : Blood Pressure : / mmHG Vent. Rate : 083 BPM Atrial Rate : 083 BPM P-R Int : 136 ms QRS Dur : 094 ms QT Int : 354 ms P-R-T Axes : 071 -21 016 degrees QTc Int : 415 ms Sinus rhythm with occasional Premature ventricular complexes Possible Left atrial enlargement Incomplete right bundle branch block Borderline ECG When compared with ECG of 31-JAN-2017 06:42, Premature ventricular complexes are now Present Vent. rate has increased BY 33 BPM Confirmed by Mesfin Grace ([id number]) on 06/23/2019 1:54:21 PM Referred By: REFERRED SELF Confirmed By:Mesfin Grace
[2019-06-23] MEDS ORDERED: Heparin IV Low Dose *NO* Bolus IV SCH (15:02)
[2019-06-23] MEDS ORDERED: HEPARIN SODIUM/DEXTROSE 25,000 UNITS/500 ML BAG IV SCH (15:40)
[2019-06-23] MEDS: SODIUM CHLORIDE 0.9% 1000ML 1,000 ML IV SCH (15:47)
[2019-06-23] MEDS: *RESTASIS*ORDER AWAITING ACTION SCH (15:53)
[2019-06-23] MEDS: ATORVASTATIN 20 MG TAB PO SCH (20:46)
[2019-06-23] MEDS: SPIRONOLACTONE 25 MG TAB PO SCH (20:46)
[2019-06-23] MEDS: ALFUZOSIN HCL 10 MG TAB PO SCH (20:46)
[2019-06-23] MEDS: LORazepam 0.5 MG TAB PO SCH (22:04)
[2019-06-23 22:24] LABS: Partial Thromboplastin Ratio 1.9
[2019-06-23 22:37] LABS: Partial Thromboplastin Time 52.3 Seconds (21.0-31.0)
[2019-06-24] MEDS: SODIUM CHLORIDE 0.9% 1000ML 1,000 ML IV SCH ×2 (03:36→16:00)
[2019-06-24 05:53] LABS: Hematocrit (blood only) 49.9 % (42-52); Mean Corpuscular Hemoglobin 33.1 pg (25-34); Mean Corpuscular Hgb Conc 32.1 g/dL (32-36); Mean Corpuscular Volume 103.3 fL (80-100); RDW Coefficient of Variation 16.2 % (11.5-14.5); RDW Standard Deviation 61.7 fL (36.4-46.3); Red Blood Count 4.83 M/uL (4.7-6.1); White Blood Count 17.12 K/uL (4.8-10.8)
[2019-06-24 06:04] LABS: Mean Platelet Volume 10.7 fL (7.4-10.4); Platelet Count 53 K/uL (130-400)
[2019-06-24 06:08] LABS: Partial Thromboplastin Ratio 2.7
[2019-06-24 06:16] LABS: BUN Creatinine Ratio 34.5 (10-20); Calcium 8.3 mg/dl (8.5-10.1); Creatinine Clr Calc Pharmacy 29.8 ml/min; Est GFR (African American) 45.8; Est GFR (Non-African American) 39.5
[2019-06-24 06:21] LABS: Albumin Globulin Ratio 1.1 (0.9-2); Bilirubin,Total 1.7 mg/dl (0.2-1); Globulin 2.8 gm/dl (2.5-4.0); Total Protein 5.8 gm/dl (6.4-8.2)
[2019-06-24 06:34] LABS: Basophils # (auto) 0.01 K/uL (0-0.2); Basophils % (auto) 0.1 %; Eosinophils # (auto) 0.09 K/uL (0-0.5); Eosinophils % (auto) 0.5 %; Immature Granulocytes # (auto) 0.12 K/uL (0.00-0.02); Immature Granulocytes % (auto) 0.7 %; Lymphocytes % (auto) 6.4 %; Monocytes # (auto) 1.36 K/uL (0.11-0.59); Monocytes % (auto) 7.9 %; Neutrophils # (auto) 14.44 K/uL (1.4-6.5); Neutrophils % (auto) 84.4 %
[2019-06-24] MEDS ORDERED: HEPARIN (PORCINE) 1000 UNIT/ML 10 ML (CATH LAB USE ONLY) ONE (08:09)
[2019-06-24] MEDS ORDERED: MIDAZOLAM HCL 1 MG/ML 2ML VIAL ONE (08:09)
[2019-06-24] MEDS ORDERED: NiCARDipine HCL INJ 2.5 MG/ML 10 ML AMP ONE (08:09)
[2019-06-24] MEDS ORDERED: fentaNYL citrate 100 MCG/2 ML VIAL ONE (08:09)
[2019-06-24] MEDS ORDERED: NITROGLYCERIN/D5W 100MCG/ML 20ML SYR ONE (08:10)
[2019-06-24] MEDS ORDERED: FUROSEMIDE 80 MG TAB PO SCH (09:00)
--- NOTE | 2019-06-24 09:25 | Pre Anesthesia Assessment ---
Date of Service June 24, 2019 Pre Sedation Assessment Vital Signs Temp Pulse Pulse Resp BP BP Pulse Ox 06/24/19 07:39 82 16 119/51 L 96 06/24/19 07:00 36.8 C 81 18 104/55 L 92 06/24/19 03:56 36.8 C 71 19 102/55 L 93 06/23/19 22:54 37.2 C 84 16 109/54 L 92 06/23/19 19:34 36.9 C 76 20 107/54 L 94 06/23/19 18:41 77 06/23/19 15:20 36.8 C 76 20 106/49 L 93 06/23/19 12:26 71 24 126/55 L 95 06/23/19 11:08 72 20 122/69 96 06/23/19 10:08 81 20 103/53 L 95 06/23/19 09:55 95 06/23/19 09:41 95 06/23/19 09:31 36.7 C 74 18 153/61 H 96 Cardiovascular RRR, no murmur, no edema Respiratory normal respiratory effort, lungs clear to auscultation Pre-Sedation Airway Assessment Smoking Status: Never smoker Hx Sleep Apnea: No Short, Thick Neck: No Thyromental Distance: > or= 3.5 Finger Breadths Oral Cavity: + WNL Mallampati Class: III ASA: ASA3 NPO Status Date of Last Intake of Fluids: 06/23/19 Time of Last Intake of Fluids: 19:00 Date of Last Intake of Solid Food: 06/23/19 Time of Last Intake of Solid Foods: 19:00 Procedure Planning Contraindications for Sedation: none Current Medications Reviewed: Yes Notes The planned sedation has been discussed with the patient. Informed Consent was obtained. I have identified the patient, determined the appropriateness of sedation and have assessed the patient immediately prior to the procedure. All medicine(s) and interventions are by my order.
--- NOTE | 2019-06-24 09:26 | Post Anesthesia Assessment ---
Date of Service June 24, 2019 Post Sedation Assessment Vital Signs Temp Pulse Pulse Resp BP Pulse Ox 06/24/19 07:39 82 16 119/51 L 96 06/24/19 07:00 36.8 C 81 18 104/55 L 92 06/24/19 03:56 36.8 C 71 19 102/55 L 93 06/23/19 22:54 37.2 C 84 16 109/54 L 92 06/23/19 19:34 36.9 C 76 20 107/54 L 94 06/23/19 18:41 77 06/23/19 15:20 36.8 C 76 20 106/49 L 93 06/23/19 12:26 71 24 126/55 L 95 06/23/19 11:08 72 20 122/69 96 Recovery Score Activity: Moves 4 extremities Consciousness: Arouseable (by name) Oxygen Saturation: > 92% On Room Air Discharge Sedation Level of Care: Fast Track Phase II Post Sedation Plan On clinical assessment, the patient appears to have tolerated the sedation without complications. Patient is recovering as anticipated. Patient will continue to be monitored by nursing and may be discharged when sedation discharge criteria are met per below protocol. Upon Completions of procedure up to 15 minutes continue every 5 minute vital signs and the P.A.R. score; then discharge to a Phase I or Fast Track to Phase II per the following guidelines: * Discharge Patient to appropriate Phase II area if PAR is 8 or greater or return to pre- procedure baseline. The post - procedure orders will be as directed. * If PAR score is less than 8 or not return to pre-procedure baseline then patient will follow Phase I monitoring till PAR is reached for Phase II. The Phase I may be done in procedure room or may call to secure a Phase I area. * If naloxone or flumazenil are used for reversal, hold in Phase I for continued monitoring from when last reversal dose was given for a minimum of 60 minutes or longer pending the nurse and/or physician discretion of patient condition before discharge to Phase II. Please call the Sedation Physician to re-evaluate and complete post-note for discharge to Phase II area. Do NOT discharge from procedure sedation or Phase 1 until post- sedation evaluation note is complete by procedure /sedation MD Sedation Discharge Instructions to be given to the patient at discharge to home.
[2019-06-24] MEDS ORDERED: ACETAMINOPHEN 325 MG TAB PO PRN (09:44)
--- NOTE | 2019-06-24 09:44 | Cardiac Catheterization ---
Cardiac Cath Procedure Full Procedure Date June 24, 2019 Pre-Procedure Diagnosis Pre-Procedure Diagnosis: Angina and CAD AUC Score AUC Score: 8 Post-Procedure Diagnosis Post-Procedure Diagnosis: Moderate CAD Procedure(s) Performed Procedure(s) Performed: Coronary Angiography, Left Heart Cath and Bypass Graft Angiography Custom Applicator Davie Ji DO Structural Steel Painter(s) Sang RT Estimated Blood Loss Estimated Blood Loss: 5cc Medication(s) Medication(s): Fentanyl, Lidocaine 1% and Versed Summary of Findings Left dominant coronary anatomy. Patent LAD stent with 40% in-stent restenosis. Total occlusion of obtuse marginal branch vessel #3 with patent saphenous vein graft. 99% proximal nondominant RCA stenosis filling via left to right collaterals. Elevated left ventricular end-diastolic pressure. Peak to peak gradient 20 mmHg suggesting mild to moderate bioprosthetic aortic valve stenosis. Hemodynamics Rest Ao:: 91/34/55 Final Ao: 103/38/65 LV: 128/0/33 Recommendations Recommendations: Medical Therapy and/or Counseling Specimens Specimens: None Radiation Exposure (mGy) 1153 Contrast (mls) 80 Fluids (cc crystalloids) Fluids (cc crystalloids): 109 Nss Anesthesia Moderate sedation. Start 0838. End 0919. Sedation monitor: Kyrie RO Procedural Complication(s) None Disposition PCU I attest to the content of the Intraoperative Record and any orders documented therein. Any exceptions are noted below. ACC Data: Frame Sample And Pattern Supervisor Cardiac Status Clinical evaluation leading to the procedure CAD Presenation: Unstable angina Anginal Classification: CCS II Heart Failure: No Imaging Studies Past 6 Months: Yes Stress Studies Past 6 Months: No Coronary Anatomy Dominant: Left Left Main (% Stenosis): Normal LAD (% Stenosis): Proximal (20%), Mid (30-40% mid in-stent restenosis) and Distal (10-20% diffuse, left to collaterals arising form apical LAD) D1 (% Stenosis): Mid (10-20% diffuse) D2 (% Stenosis): Normal OM1 (% Stenosis): Mid (10%) OM2 (% Stenosis): Ostial (20%, small vessel) OM3 (% Stenosis): Ostial (100% mid) L PL1 (% Stenosis): Mid (10%, small vessel) L PL2 (% Stenosis): Distal (left to right collaterals ) L PDA (% Stenosis): Mid (10%, small vessel) and Distal (left to right collaterals) RCA (% Stenosis): Proximal (99% proximal, small nondominant vessel. ) Grafts - Circumflex (%): Ostial (patent SVG to OM3 with retrograde fills back to left main and distal Lcx) Diagnostic Physicians Name: Davie Ji DO Status: Urgent Closure Device Percutaneous Entry Location: Femoral Closure Device: Mynx Recommendations: Medical Therapy and/or Counseling Intraprocedure Events Significant Disection: No Perforation: No
[2019-06-24] MEDS: ASPIRIN 81 MG ECTAB PO SCH (10:25)
[2019-06-24] MEDS: FLUTICASONE PROPIONATE NA SPR 16 GM BTL SCH (10:26)
[2019-06-24] MEDS: PANTOprazole 40 MG TAB PO SCH (10:26)
[2019-06-24] MEDS: CEROVITE ADV FORMULA TAB PO SCH (10:26)
[2019-06-24] MEDS: MULTIVITAMIN TAB PO SCH (10:26)
[2019-06-24] MEDS: CLOPIDOGREL BISULFATE 75 MG TAB PO SCH (10:26)
[2019-06-24] MEDS: allopurinoL 100 MG TAB PO SCH (10:27)
[2019-06-24] MEDS: PROPRANOLOL HCL 10 MG TAB PO SCH (10:27)
[2019-06-24] MEDS ORDERED: FUROSEMIDE 40 MG TAB PO SCH (10:30)
[2019-06-24] MEDS: *RESTASIS*ORDER AWAITING ACTION SCH ×3 (10:32→16:00)
[2019-06-24] MEDS ORDERED: FUROSEMIDE 40 MG TAB PO ONE (14:17)
--- NOTE | 2019-06-24 16:37 | Cardiology Progress Note ---
Date of Service June 24, 2019 Assessment & Plan (1) Aortic regurgitation: (2) S/P AVR (aortic valve replacement): (3) CAD (coronary artery disease), [place] coronary artery: (4) Elevated troponin I level: (5) CKD (chronic kidney disease) stage 3, GFR 30-59 ml/min: (6) Thrombocytopenia: (7) H/O carotid endarterectomy: Cardiac catheterization performed today demonstrating patent LAD stent and saphenous vein graft obtuse marginal branch vessel. There is a noted high-grade stenosis of the proximal nondominant right coronary artery which is not amenable to PCI. Left to right collaterals are present. The bioprosthetic aortic valve systolic gradient is in the mild to moderate range. Left ventricular end-diastolic pressure significantly elevated, however, patient received IV hydration prior to procedure and has known constrictive physiology since the time of the aortic valve replacement and single vessel bypass surgery. Resting 2D transthoracic echo demonstrates at least moderate bioprosthetic aortic valve regurgitation (possibly severe). The severity of regurgitation has progressed when compared to prior echocardiograms. I have ordered a repeat limited 2D transthoracic echocardiogram to evaluate aortic insufficiency. Transesophageal echocardiogram may be considered for further evaluation if necessary. Patient's IV fluid will be discontinued at this time. He received 40 mg of oral Lasix this afternoon. Repeat basic metabolic panel in a.m. Restart scheduled BID diuretic therapy pending review. Subjective Patient seen and examined the bedside. Cardiac catheterization performed without complication. No intervention performed. Patient feeling well post- procedure. Denies groin discomfort. No ecchymosis or hematoma. Review of Systems Review of Systems: All systems reviewed & are unremarkable except as noted in HPI & below Physical Exam Constitutional: well developed, well nourished and average body habitus; no acute distress and not ill appearing ENMT: Mallampati Class: III Respiratory: normal respiratory effort, lungs clear to auscultation normal respiratory effort; no respiratory distress, no labored breathing, no retractions and does not use accessory muscles Auscultation: no crackles, no rales, no rhonchi and no wheezes Cardiovascular: RRR, no murmur, no edema Rate/Rhythm: regular rate and regular rhythm Heart Sounds: normal S1, normal S2 and + murmur (3/6 mid peaking low pitched systolic ejection murmur heard throughout the precordium, however, best at the right second intercostal space with radiation to the carotid arteries bilaterally. There is a 2/6 diastolic murmur heard best at the cardiac base.); no cardiac rub Palpation: normal PMI Vessels: + carotid bruit (1/4 bilateral carotid bruits versus transmitted aortic murmur), femoral pulses present and radial pulses present; no JVD Extremities: no edema Results & Data Vital Signs (Past 12 Hours) Vital Signs Temp Pulse Pulse Resp BP Pulse Ox 06/24/19 15:38 36.8 C 78 18 114/64 91 06/24/19 14:34 36.4 C L 71 122/51 L 92 06/24/19 12:30 77 95/48 L 91 06/24/19 12:14 74 104/49 L 91 06/24/19 11:30 75 113/58 L 91 06/24/19 11:00 85 108/54 L 06/24/19 10:45 36.4 C L 75 110/54 L 91 06/24/19 08:00 86 06/24/19 07:39 82 16 119/51 L 96 06/24/19 07:00 36.8 C 81 18 104/55 L 92 (1) Aortic regurgitation Cardiac valve disease etiology: etiology unspecified Qualified Code(s): I35.1 - Nonrheumatic aortic (valve) insufficiency (2) CAD (coronary artery disease), [place] coronary artery Associated angina: with unstable angina [place] vs. transplanted heart: [place] heart Qualified Code(s): I25.110 - Atherosclerotic heart disease of [place] coronary artery with unstable angina pectoris
[2019-06-24] MEDS: LORazepam 0.5 MG TAB PO SCH (20:37)
[2019-06-24] MEDS: SPIRONOLACTONE 25 MG TAB PO SCH (20:38)
[2019-06-24] MEDS: ATORVASTATIN 20 MG TAB PO SCH (20:38)
[2019-06-24] MEDS: ALFUZOSIN HCL 10 MG TAB PO SCH (20:39)
[2019-06-25] MEDS: *RESTASIS*ORDER AWAITING ACTION SCH ×4 (01:51→23:33)
[2019-06-25] MEDS: CLOPIDOGREL BISULFATE 75 MG TAB PO SCH (08:46)
[2019-06-25] MEDS: PROPRANOLOL HCL 10 MG TAB PO SCH ×2 (08:46→20:20)
[2019-06-25] MEDS: ASPIRIN 81 MG ECTAB PO SCH (08:46)
[2019-06-25] MEDS: PANTOprazole 40 MG TAB PO SCH (08:46)
[2019-06-25] MEDS: FLUTICASONE PROPIONATE NA SPR 16 GM BTL SCH (08:47)
[2019-06-25] MEDS: MULTIVITAMIN TAB PO SCH (08:47)
[2019-06-25] MEDS: CEROVITE ADV FORMULA TAB PO SCH (08:47)
[2019-06-25] MEDS: allopurinoL 100 MG TAB PO SCH (08:47)
[2019-06-25 09:06] LABS: Hematocrit (blood only) 52.5 % (42-52); Mean Corpuscular Hemoglobin 33.7 pg (25-34); Mean Corpuscular Hgb Conc 32.4 g/dL (32-36); Mean Corpuscular Volume 104.2 fL (80-100); RDW Coefficient of Variation 16.7 % (11.5-14.5); RDW Standard Deviation 63.1 fL (36.4-46.3); Red Blood Count 5.04 M/uL (4.7-6.1); White Blood Count 14.35 K/uL (4.8-10.8)
[2019-06-25 09:11] LABS: Basophils # (auto) 0.01 K/uL (0-0.2); Basophils % (auto) 0.1 %; Eosinophils # (auto) 0.05 K/uL (0-0.5); Eosinophils % (auto) 0.3 %; Immature Granulocytes # (auto) 0.09 K/uL (0.00-0.02); Immature Granulocytes % (auto) 0.6 %; Lymphocytes # (auto) 1.35 K/uL (1.2-3.4); Lymphocytes % (auto) 9.4 %; Mean Platelet Volume 10.5 fL (7.4-10.4); Monocytes # (auto) 1.13 K/uL (0.11-0.59); Monocytes % (auto) 7.9 %; Neutrophils # (auto) 11.72 K/uL (1.4-6.5); Neutrophils % (auto) 81.7 %; Platelet Count 47 K/uL (130-400)
[2019-06-25 09:24] LABS: Albumin Level 3.2 gm/dl (3.4-5.0); BUN Creatinine Ratio 33.5 (10-20); Calcium 9.1 mg/dl (8.5-10.1); Creatinine Clr Calc Pharmacy 27.9 ml/min; Est GFR (African American) 42.3; Est GFR (Non-African American) 36.5; Magnesium 2.6 mg/dl (1.8-2.4); Potassium 4.3 mmol/L (3.5-5.1)
[2019-06-25 09:27] LABS: Bilirubin,Total 2.1 mg/dl (0.2-1); Globulin 3.2 gm/dl (2.5-4.0); Total Protein 6.4 gm/dl (6.4-8.2)
[2019-06-25 09:59] LABS: RBC Morphology Unremarkable
[2019-06-25] MEDS ORDERED: FUROSEMIDE 40 MG in SYRINGE 0 ML IV SCH (10:45)
--- NOTE | 2019-06-25 12:04 | Cardiology Progress Note ---
Date of Service June 25, 2019 Assessment & Plan (1) Aortic regurgitation: (2) S/P AVR (aortic valve replacement): (3) CAD (coronary artery disease), [place] coronary artery: (4) Elevated troponin I level: (5) CKD (chronic kidney disease) stage 3, GFR 30-59 ml/min: (6) Thrombocytopenia: (7) H/O carotid endarterectomy: Multifactorial elevated left ventricular end-diastolic pressure secondary to withholding diuretic therapy, IV hydration in preparation for cardiac catheterization, aortic regurgitation, and previously document constrictive physiology. No significant bioprosthetic aortic valve stenosis per invasive evaluation. Repeat basic metabolic panel today. If creatinine is stable, recommend 40 mg IV Lasix then resume Lasix 80 mg in a.m., 40 mg in the afternoon. He will require repeat basic metabolic panel in approximately 1 week. With evidence of nondominant RCA stenosis with [id number] collaterals recommend titration of beta-josue: propranolol to 10 mg twice daily. Repeat limited 2D transthoracic echocardiogram demonstrates moderate to severe aortic regurgitation. Results discussed with patient. Recommend continued observation and medical management including diuretic therapy (furosemide plus aldactone.) Outpatient follow-up scheduled 07/05/2019. Repeat resting 2D transthoracic echocardiogram in 6 months, however, transesophageal echocardiogram may be considered for further evaluation pending outpatient follow-up. Subjective Patient seen and examined at the bedside. Resting comfortably. Tolerated a.m. medications. Labs pending at this time. Diuretics remain on hold. Patient denies orthopnea or paroxysmal nocturnal dyspnea. No palpitations or lightheadedness. Denies groin discomfort. Offers no other concerns/complaints. Review of Systems Review of Systems: All systems reviewed & are unremarkable except as noted in HPI & below Physical Exam Constitutional: well developed, well nourished and average body habitus; no acute distress and not ill appearing ENMT: Mallampati Class: III Respiratory: normal respiratory effort, lungs clear to auscultation normal respiratory effort; no respiratory distress, no labored breathing, no retractions and does not use accessory muscles Auscultation: no crackles, no rales, no rhonchi and no wheezes Cardiovascular: RRR, no murmur, no edema Rate/Rhythm: regular rate and regular rhythm Heart Sounds: normal S1, normal S2 and + murmur (3/6 mid peaking low pitched systolic ejection murmur heard throughout the precordium, however, best at the right second intercostal space with radiation to the carotid arteries bilaterally. There is a 2/6 diastolic murmur heard best at the cardiac base.); no cardiac rub Palpation: normal PMI Vessels: + JVD, + carotid bruit (1/4 bilateral carotid bruits versus transmitted aortic murmur), femoral pulses present and radial pulses present Extremities: no edema Gastrointestinal (Abdomen): Inspection/Auscultation: abdomen normal to inspection and normal bowel sounds; abdomen not distended Percussion/Palpation: abdomen soft; abdomen nontender, no guarding and abdomen not rigid Skin: no rashes, warm and dry Neurologic: moves all extremities; no focal motor deficits Speech / Cognition: normal speech Psychiatric: Affect: + flat affect Results & Data Vital Signs (Past 12 Hours) Vital Signs Temp Pulse Pulse Resp BP Pulse Ox 06/25/19 11:04 36.8 C 71 19 123/61 92 06/25/19 07:04 37.0 C 81 19 120/57 L 91 06/25/19 06:00 61 06/25/19 03:36 37.2 C 75 19 91/42 L 91 (1) Aortic regurgitation Cardiac valve disease etiology: etiology unspecified Qualified Code(s): I35.1 - Nonrheumatic aortic (valve) insufficiency (2) CAD (coronary artery disease), [place] coronary artery [place] vs. transplanted heart: [place] heart Associated angina: with unstable angina Qualified Code(s): I25.110 - Atherosclerotic heart disease of [place] coronary artery with unstable angina pectoris
--- NOTE | 2019-06-25 13:26 | Hospitalist Progress Note ---
Date of Service June 25, 2019 Assessment & Plan (1) Chest pain: Admit telemetry obs Initial troponin 0.05 which may be baseline looking at his past troponins, will trend. No ST elevations/depressions on EKG Consulted [facility] cardiology - cardiac cath 06/23 without stenting. Per their recommendation, increased propranolol to 10 mg bid and gave another dose of 40 mg IV lasix this morning. Will resume home dosing for tonight. Repeat bmp in a week outpatient (2) CKD (chronic kidney disease) stage 3, GFR 30-59 ml/min: Avoid nephrotoxins where possible. Creat improved from baseline of 1.9 to 1.7 (3) CAD (coronary artery disease): Continue asa, clopidogrel, furosemide, spironolactone, propranolol (4) Leukocytosis: WBCs improving - patient recently finished a steroid taper. Will trend. No other s/s of infection at present (5) Elevated bilirubin: Bili 2.1, 0.6 direct bili - patient has history of cholecystectomy, transaminases wnl, No symptoms of abdominal pain, nausea or vomiting Would have patient repeat this level after discharge to trend (6) Thrombocytopenia: Platelets 47, appears to be chronic, thrombocytopenia as far back as 2017 (7) DVT prophylaxis: SCDs, hold chemoprophylaxis for thrombocytopenia Admission and Anticipated Discharge Date Admission Date: June 23, 2019 Subjective Mr. Arauz is feeling somewhat better today. He still has some chest pain with exertion. ROS Constitutional: no chills, aches, sweats or fever Respiratory: no sob,cough, sputum, or wheezing Cardiac: no palpitations, edema, orthopnea or lightheadedness GI: no abdominal pain, nausea, vomiting, diarrhea or constipation : no dysuria or hesitancy Extremities: no joint pain or weakness Skin: no rash All other systems reviewed and negative Physical Exam Physical Exam: General: no distress Eyes: normal inspection, PERLL Respiratory: chest non tender, clear to auscultation, normal breath sounds, no respiratory distress, no accessory muscle use Cardiac: regular rate and rhythm, no rub or gallop, no murmur, no edema, no jvd GI/: active bowel sounds, no abd pain or tenderness, soft, non distended Extremities: normal range of motion, normal strength, non tender Neuro/Psych: alert and oriented x 3, normal mood and affect Skin: normal color, dry Results & Data Results & Data ([facility]) Vital Signs (Past 12 Hours) Vital Signs Temp Pulse Pulse Resp BP Pulse Ox 06/25/19 11:04 36.8 C 71 19 123/61 92 06/25/19 07:04 37.0 C 81 19 120/57 L 91 06/25/19 06:00 61 06/25/19 03:36 37.2 C 75 19 91/42 L 91 PG Care Time/CCT Total # of Minutes Spent Total Time Spent with Patient: Total time spent is greater than 50% in coordination of care (as documented) at patient's floor/unit and/or counseling patient: Coding Level of Care Code 62500 Subseq Hosp Care Lvl 3 Diagnoses Chest pain R07.9 CKD (chronic kidney disease) stage 3, GFR 30-59 ml/min N18.3 CAD (coronary artery disease) I25.10 Leukocytosis D72.829 Elevated bilirubin R17 Thrombocytopenia D69.6 DVT prophylaxis Z29.9
[2019-06-25] MEDS ORDERED: FUROSEMIDE 40 MG TAB PO SCH (17:00)
[2019-06-25] MEDS: LORazepam 0.5 MG TAB PO SCH (20:19)
[2019-06-25] MEDS: ALFUZOSIN HCL 10 MG TAB PO SCH (20:20)
[2019-06-25] MEDS: ATORVASTATIN 20 MG TAB PO SCH (20:20)
[2019-06-25] MEDS: SPIRONOLACTONE 25 MG TAB PO SCH (20:20)
[2019-06-26] MEDS: *RESTASIS*ORDER AWAITING ACTION SCH (07:31)
[2019-06-26] MEDS: MULTIVITAMIN TAB PO SCH (07:40)
[2019-06-26] MEDS: CEROVITE ADV FORMULA TAB PO SCH (07:40)
[2019-06-26] MEDS: PROPRANOLOL HCL 10 MG TAB PO SCH (07:41)
[2019-06-26] MEDS: PANTOprazole 40 MG TAB PO SCH (07:41)
[2019-06-26] MEDS: ASPIRIN 81 MG ECTAB PO SCH (07:41)
[2019-06-26] MEDS: FLUTICASONE PROPIONATE NA SPR 16 GM BTL SCH (07:41)
[2019-06-26] MEDS: allopurinoL 100 MG TAB PO SCH (09:33)
[2019-06-26] MEDS: CLOPIDOGREL BISULFATE 75 MG TAB PO SCH (09:33)
[2019-06-26 09:56] LABS: BUN Creatinine Ratio 38.7 (10-20); Calcium 8.9 mg/dl (8.5-10.1); Creatinine Clr Calc Pharmacy 24.5 ml/min; Est GFR (African American) 36.1; Est GFR (Non-African American) 31.1
--- NOTE | 2019-06-26 12:10 | Cardiology Progress Note ---
Date of Service June 26, 2019 Assessment & Plan (1) Aortic regurgitation: Moderate aortic insufficiency present on echocardiography question more severe. We will continue to follow patient closely as an outpatient, enroll in valve clinic Suspect current deterioration may been response to prednisone. Given elevated white cell count and increased aortic insufficiency we will check blood cultures prior to discharge Otherwise would discharge on current medications usual dose of furosemide as w ell as reduce dose spironolactone, increased propanolol Will need close follow-up of renal function post discharge with cardiology appointment already scheduled 07/05/2019 (2) S/P AVR (aortic valve replacement): (3) CAD (coronary artery disease), [place] coronary artery: (4) Elevated troponin I level: (5) CKD (chronic kidney disease) stage 3, GFR 30-59 ml/min: (6) Thrombocytopenia: (7) H/O carotid endarterectomy: Multifactorial elevated left ventricular end-diastolic pressure secondary to withholding diuretic therapy, IV hydration in preparation for cardiac catheterization, aortic regurgitation, and previously document constrictive physiology. No significant bioprosthetic aortic valve stenosis per invasive evaluation. Repeat basic metabolic panel today. If creatinine is stable, recommend 40 mg IV Lasix then resume Lasix 80 mg in a.m., 40 mg in the afternoon. He will require repeat basic metabolic panel in approximately 1 week. With evidence of nondominant RCA stenosis with [id number] collaterals recommend titration of beta-josue: propranolol to 10 mg twice daily. Repeat limited 2D transthoracic echocardiogram demonstrates moderate to severe aortic regurgitation. Results discussed with patient. Recommend continued observation and medical management including diuretic therapy (furosemide plus aldactone.) Outpatient follow-up scheduled 07/05/2019. Repeat resting 2D transthoracic echocardiogram in 6 months, however, transesophageal echocardiogram may be considered for further evaluation pending outpatient follow-up. Subjective Patient seen and examined, chart, medications, telemetry reviewed. No acute complaints this morning, just uncertain as to why did not feel well. No fevers chills or productive cough. No dizziness or lightheadedness. No arrhythmias on telemetry. Physical Exam Constitutional: WD/WN, vitals as above Eyes: PERRL, conjunctivae normal, anicteric sclerae ENMT: external ear and nose normal, oropharynx normal Neck: trachea midline, no thyromegaly Cardiovascular: Heart Sounds: normal S1, normal S2 and + murmur (Grade 1/6 systolic murmur grade 1/6 to 2/6 diastolic murmur left lower sternal border); no gallop Palpation: normal PMI Vessels: + JVD (Chronic elevation); no carotid bruit and no femoral bruit Extremities: no edema Gastrointestinal (Abdomen): normal bowel sounds, soft, nontender, no hepatosplenomegaly Musculoskeletal: no cyanosis or clubbing, extremities motor strength 5/5 Results & Data Vital Signs (Past 12 Hours) Vital Signs Temp Pulse Pulse Resp BP BP Pulse Ox 06/26/19 08:00 81 06/26/19 07:04 36.9 C 72 18 115/53 L 92 06/26/19 03:49 36.4 C L 73 18 116/61 94 06/26/19 00:16 36.7 C 79 16 108/62 92 Laboratory Results Laboratory Results - last 24 hr 06/26/19 06/26/19 09:01 10:23 Sodium 141 Potassium 4.3 Chloride 109 H Carbon Dioxide 23 Anion Gap 9.0 BUN 76 H Creatinine 1.95 H Est Cr Clr Drug Dosing 24.5 Est GFR ( Amer) 36.1 Est GFR (Non-Af Amer) 31.1 BUN/Creatinine Ratio 38.7 H Glucose 174 H Calcium 8.9 (1) Aortic regurgitation Cardiac valve disease etiology: etiology unspecified Qualified Code(s): I35.1 - Nonrheumatic aortic (valve) insufficiency (2) CAD (coronary artery disease), [place] coronary artery [place] vs. transplanted heart: [place] heart Associated angina: with unstable angina Qualified Code(s): I25.110 - Atherosclerotic heart disease of [place] coronary artery with unstable angina pectoris
--- NOTE | 2019-06-26 15:52 | Discharge Summary ---
Date of Service June 26, 2019 Principal Diagnosis Volume overload Discharge Exam Constitutional WD/WN, vitals as above Eyes EOM intact bilaterally; no conjunctival abnormality ENMT external ear and nose normal, oropharynx normal Neck trachea midline, no thyromegaly normal visual inspection Respiratory normal respiratory effort, lungs clear to auscultation no respiratory distress Cardiovascular RRR, no murmur, no edema Gastrointestinal (Abdomen) Inspection/Auscultation: abdomen normal to inspection; abdomen not distended Musculoskeletal no cyanosis or clubbing, extremities motor strength 5/5 Skin no rashes, warm and dry Neurologic moves all extremities and awake Psychiatric Orientation: alert, oriented to person and cooperative Discharge Data Allergies Allergy/AdvReac Type Severity Reaction Status Date / Time No Known Allergies Allergy Verified 06/23/19 10:39 Consultations 06/23/19 11:13 ED Decision to Admit Stat 06/23/19 12:56 Consult Cardiology Routine Consult Case Management - Discharge Planning Routine 06/24/19 07:43 Consult Cardiac Catheterization Routine Procedures Performed Operation Date: 06/24/19 08:00 Actual Procedures p Cath, Left w/Cors Vent Grafts - Davie Ji DO s Cineradiography w/Routine Exam - Davie Ji DO Ordered Studies 06/24/19 07:22 CL Cath Imgs for PACS use only Routine Hospital Course (1) Chest pain: Initial troponin 0.05, then 0.08. No ST elevations/depressions on EKG. - Consulted [facility] cardiology - cardiac cath 06/23 without stenting. Per their recommendation, increased propranolol to 10 mg bid and gave another dose of 40 mg IV Lasix this morning. - No further chest pain while inpatient. Possibly due to CHF exacerbation? He got Lasix IV while inpatient. His Cr was on the higher end of his baseline at 1.9. BUN was on the higher end of his range ~60-70. - He will go back to his normal Lasix regimen per cardiology. He is still reporting that he is up about 8 lbs. from his normal baseline weight of ~145 lbs. (2) CKD (chronic kidney disease) stage 3, GFR 30-59 ml/min: Baseline Cr is ~1.7 - 1.9. He was stable while here, though his BUN did gradually increase up to 75 indicating he was relatively intravascularly dry. - Avoid nephrotoxins where possible. - Will get follow up BMP with his [facility] cardiology team. (3) CAD (coronary artery disease): Continue asa, clopidogrel, furosemide, spironolactone, propranolol. - Increased propranolol to 10 mg PO BID to help with anginal symptoms. (4) Leukocytosis: WBCs improving - patient recently finished a steroid taper. Will trend. No other s/s of infection at present. (5) Elevated bilirubin: Bili 2.1, 0.6 direct bili - patient has history of cholecystectomy, transaminases wnl, No symptoms of abdominal pain, nausea or vomiting Would have patient repeat this level after discharge to trend. (6) Thrombocytopenia: Platelets 47, appears to be chronic, thrombocytopenia as far back as 2017 (7) DVT prophylaxis: SCDs, hold chemoprophylaxis for thrombocytopenia Total Time Total Time Spent Total Time Spent (In Minutes): 35 Discharge Plan Discharge Items Patient Disposition: Home - Self-Care Reason For Visit: CHEST PAIN Discharge Diagnosis: CHF exacerbation Activity: Resume your previous activity Non-emergency contact: Primary Care Provider and Industrial Safety And Health Manager Call non-emergency contact if: your symptoms worsen Follow-up/Referrals: Mario Gamez MD [Primary Care Provider] - (Please call your primary care provider to schedule a discharge follow-up appointment.) Davie Ji, [Industrial Safety And Health Manager] - (Please see Dr. Ji in the office in 1-2 weeks.) Diet: Heart Healthy and Low Sodium (2gm) Addtl Attending Provider Instructions: You were admitted to the hospital with chest pain. You had a catheterization with Dr. Ji that showed stable blood vessels. There was no need for any stent. We did feel you had some extra fluid on your heart and lungs, and we gave you some Lasix to help get the fluid off. On discharge, we have you back on your normal regimen, though you do feel your weight is up compared to normal. Please weigh yourself to ensure your scales and ours are in accordance. Please take your normal Lasix and follow up with the heart doctors this coming week. Pending Studies at Discharge: No Stand-Alone Forms: My [employer], Smoking Cessation Medications and DC Order Prescriptions: Continued cyclosporine 0.05 % dropperette 1 drp OPB DAILY RF: 0 lorazepam 0.5 mg tablet 0.5 mg PO HS RF: 0 allopurinol 100 mg tablet 100 mg PO DAILYBL RF: 0 clopidogrel 75 mg tablet 75 mg PO DAILYBL RF: 0 atorvastatin 20 mg tablet 20 mg PO QPM RF: 0 furosemide 40 mg tablet 80 mg PO QAM RF: 0 PreserVision AREDS [id number] capsule 1 cap PO BID RF: 0 spironolactone 50 mg tablet 25 mg PO HS RF: 0 alfuzosin 10 mg tablet extended release 24 hr 10 mg PO QPM RF: 0 furosemide 40 mg Tablet 40 mg PO DAILYBL RF: 0 aspirin [Aspirin Low Dose] 81 mg Tablet,Delayed Release (Dr/Ec) 81 mg PO DAILY RF: 0 pantoprazole 20 mg Tablet,Delayed Release (Dr/Ec) 20 mg PO DAILY RF: 0 nitroglycerin 0.4 mg Tablet, Sublingual 0.4 mg sublingual UD PRN (Reason: Chest Pain) RF: 0 mometasone [Nasonex] 50 mcg/actuation [place],Non-Aerosol 2 spray INTRANASAL DAILY RF: 0 Centrum MultiGummies 150 mcg Tablet,Chewable 1 tab PO DAILY RF: 0 Changed propranolol 10 mg tablet 10 mg PO BID Qty: 60 RF: 0 Discharge Orders: Discharge Order (Routine); Ordered 06/26/19 Ordered By: Darius Fan Admission Data Admit Date/Time: 06/25/19 16:15 Attending Provider: Darius Fan Admit Provider: Nickolas Guzman Primary Care Provider: Mario Gamez Other Providers: Nickolas Guzman ; Hitesh Owen ; Davie Ji ; Radu Broderick Other Interventions: Discharge Summary Assessment (RN) Last Done: 06/26/19 13:58 DC Date/Time DO NOT enter until pt leaves facility: 06/26/19 14:59 Coding Level of Care Code D/C Day Management >30 mins Diagnoses Chest pain R07.9 CKD (chronic kidney disease) stage 3, GFR 30-59 ml/min N18.3 CAD (coronary artery disease) I25.10 Leukocytosis D72.829 Elevated bilirubin R17 Thrombocytopenia D69.6 DVT prophylaxis Z29.9
--- NOTE | 2019-07-01 07:46 | Coding Query ---
CONGESTIVE HEART FAILURE To Promote full compliance with coding requirements relating to patient care, physician participation is requested in all cases of finishing lab technician uncertainty. Please assist us with the following questions. A diagnosis of CHF EXACERBATION is documented in the patient's medical record on the Discharge Summary. To accurately code this diagnosis and to compare patient severity, we ask that you specify the type of heart failure by placing an X within the parenthesis (x). SYSTOLIC HEART FAILURE ( ) Acute ( ) Chronic ( ) Acute on Chronic ( ) Rheumatic ( ) Unknown DIASTOLIC HEART FAILURE ( ) Acute ( x ) Chronic ( ) Acute on Chronic ( ) Rheumatic ( ) Unknown COMBINED SYSTOLIC AND DIASTOLIC HEART FAILURE ( ) Acute ( ) Chronic ( ) Acute on Chronic ( ) Rheumatic ( ) Unknown Was the CHF Present On Admission? Please check the appropriate box: ( ) Present on Admission ( ) Not Present On Admission ( ) Clinically undetermined Thank you Milly KRAUSE
--- NOTE | 2019-07-01 07:49 | Coding Query ---
CODING QUERY To promote full compliance with coding requirements relating to patient care, provider participation is requested in all cases of hemodialysis charge nurse uncertainty. Please assist us with the question(s) below: Coding Question(s): The Discharge Summary document, under the Principal Diagnosis, Volume Overload. Please specify below, in your clinical opinion regarding the etiology of the Volume Overload. ( x ) Volume Overload is likely due to Other: Iatrogenic from holding his diuretic and giving him IV fluids in preparation for his cardiac cath. Physician's Response(s): Thank you Milly Baird Principal Diagnosis: "that condition established after study, to be chiefly responsible for occasioning the admission of the patient to the hospital for care." Co-Existing Principal Diagnosis: "when two or more diagnoses equally meet the criteria for principal diagnosis as determined by the circumstances of admission, diagnostic work up, and/or therapy provided, and the Alphabetic Index, Tabular List, or another coding guideline does not provide sequencing direction, any one of the diagnoses may be sequenced first." "When the physician has documented what appears to be a current diagnosis in the body of the record, but has not included the diagnosis in the final diagnostic statement, the physician should be asked whether the diagnosis should be added." (Source Coding Clinic 2 QTR90. p3-4) NELIDA
== END 2019-06-26 14:59 | disposition home or self-care (01) | DRG 287 ==
LOC: 2S 09:27 → ED 09:27 → SUATTDRO 12:05 → 2S 12:37

== ENCOUNTER 2019-07-12 11:32 | Inpatient (IN) ==
[2019-07-12] MEDS ORDERED: SODIUM CHLORIDE 0.9% 1000ML 250 ML IV ONE ×2 (12:08→13:21)
--- NOTE | 2019-07-12 12:15 | Emergency Department Note ---
History of Present Illness General Chief complaint: Abdominal Pain Stated complaint: STOMACH PAIN, FEELS TERRIBLE Time Seen by Provider: 07/12/19 11:58 Source: patient Mode of arrival: ambulatory Limitations: no limitations History of Present Illness Maximum Pain Intensity: 3 This patient comes in after complaining of weakness with nausea vomiting diarrhea. Has been like this way for over a week. He was recently hospitalized at that time had chest pain and fluid overload. He had a cath which did not show any lesions which required acute intervention. He has had no fever or chills he tested negative for COVID on Friday. No dysuria hematuria. He has had occasional cough. No focal numbness weakness. No fall or trauma. No blood or melena stool. He feels nausea rather than pain. He has had no chest pain at this point or shortness of breath. Home Medications Home Medications Medication Instructions Recorded Confirmed Type alfuzosin 10 mg tablet,extended 10 mg PO QPM 05/25/19 07/12/19 History release 24 hr allopurinol 100 mg tablet 100 mg PO DAILYBL 05/25/19 07/12/19 History atorvastatin 20 mg tablet 20 mg PO QPM 05/25/19 07/12/19 History clopidogrel 75 mg tablet 75 mg PO DAILYBL 05/25/19 07/12/19 History cyclosporine 0.05 % eye drops in a 1 drp OPB DAILY 05/25/19 07/12/19 History dropperette furosemide 40 mg tablet 80 mg PO QAM 05/25/19 07/12/19 History lorazepam 0.5 mg tablet 0.5 mg PO HS 05/25/19 07/12/19 History spironolactone 50 mg tablet 25 mg PO HS 05/25/19 07/12/19 History vitamins A,C,W-cgcd-cddbcq 14,320 1 cap PO BID 05/25/19 07/12/19 History unit-226 mg-200 unit capsule Centrum MultiGummies 1 tab PO DAILY 06/23/19 07/12/19 History aspirin [Aspirin Low Dose] 81 mg PO DAILY 06/23/19 07/12/19 History furosemide 40 mg PO DAILYBL 06/23/19 07/12/19 History mometasone [Nasonex] 2 spray INTRANASAL DAILY 06/23/19 07/12/19 History nitroglycerin 0.4 mg SUBLINGUAL UD PRN 06/23/19 07/12/19 History pantoprazole 20 mg PO DAILY 06/23/19 07/12/19 History propranolol 10 mg PO BID #60 tab 06/26/19 07/12/19 Rx diphenoxylate-atropine 1 tab PO DIRECTED 07/12/19 07/12/19 History escitalopram oxalate 10 mg PO DAILY 07/12/19 07/12/19 History ondansetron HCl 4 mg PO DAILY PRN 07/12/19 07/12/19 History Allergies Allergy/AdvReac Type Severity Reaction Status Date / Time No Known Allergies Allergy Verified 06/23/19 10:39 Past Med/Surg History Family History Father Stroke Hypertension Lung disease Social History Preferred Language: Turkish Communication Ability: Effective Patrol Conductor Required: No Beliefs That Will Affect Care: None marital status: / Current Living Situation: Alone current occupational status: retired Feels Safe at Home: Yes Safety Concerns: Feels Safe At This Time Smoking Status: Never smoker Hx Alcohol Use: No Hx Substance Use: No Review of Systems A total of 10 systems reviewed and were otherwise negative Physical Exam Vital Signs Vital Signs - 24 hr 07/12/19 11:43 07/12/19 12:00 07/12/19 12:12 Temperature 36.5 C Temperature Source Oral Pulse Rate 60 60 65 Pulse Rate from SpO2 Sensor Respiratory Rate 20 16 18 Respiratory Effort / Characteristics Non-Labored Spontaneous Respiratory Depth Normal Respiratory Pattern Regular Blood Pressure 93/50 L 92/37 L Blood Pressure Mean 64 43 Pulse Oximetry 93 94 Oxygen Delivery Method Room Air Sepsis Recent Fever Within 48 Hours No Sepsis Action Taken by Nursing No Action Required 07/12/19 12:30 07/12/19 13:00 07/12/19 13:01 Temperature Temperature Source Pulse Rate 61 61 63 Pulse Rate from SpO2 Sensor Respiratory Rate 18 13 15 Respiratory Effort / Characteristics Respiratory Depth Respiratory Pattern Blood Pressure 92/45 L 93/54 L Blood Pressure Mean 68 74 Pulse Oximetry 96 Oxygen Delivery Method Sepsis Recent Fever Within 48 Hours Sepsis Action Taken by Nursing 07/12/19 13:30 07/12/19 13:31 07/12/19 14:00 Temperature Temperature Source Pulse Rate 59 L 60 59 L Pulse Rate from SpO2 Sensor 59 L Respiratory Rate 15 22 17 Respiratory Effort / Characteristics Respiratory Depth Respiratory Pattern Blood Pressure 109/41 L 93/46 L Blood Pressure Mean 66 80 Pulse Oximetry 91 Oxygen Delivery Method Sepsis Recent Fever Within 48 Hours Sepsis Action Taken by Nursing 07/12/19 14:01 07/12/19 14:30 07/12/19 14:31 Temperature Temperature Source Pulse Rate 60 58 L 59 L Pulse Rate from SpO2 Sensor 61 57 L 59 L Respiratory Rate 13 15 12 Respiratory Effort / Characteristics Respiratory Depth Respiratory Pattern Blood Pressure 101/43 L Blood Pressure Mean 60 Pulse Oximetry 92 89 L 89 L Oxygen Delivery Method Sepsis Recent Fever Within 48 Hours Sepsis Action Taken by Nursing 07/12/19 15:00 07/12/19 15:01 Temperature Temperature Source Pulse Rate 62 58 L Pulse Rate from SpO2 Sensor 61 59 L Respiratory Rate 15 15 Respiratory Effort / Characteristics Respiratory Depth Respiratory Pattern Blood Pressure 92/43 L Blood Pressure Mean 63 Pulse Oximetry 91 92 Oxygen Delivery Method Sepsis Recent Fever Within 48 Hours Sepsis Action Taken by Nursing General: Well developed well nourished ill-appearing older male who appears in no acute distress, breathing comfortably on room air. Normal speech HEENT: Normal cephalic atraumatic. Pupils are equal round and reactive to light. Extraocular movements are intact. Oropharynx is pink with moist mucous membranes. No swelling of the mouth lips or tongue. Neck: Supple with a midline trachea. No meningeal signs or stiffness, no JVD or bruits. No Stridor. Chest: Clear to auscultation bilaterally. No wheezes or rhonchi. No increased work of breathing. Heart: Regular rate and rhythm without murmurs or gallops. Abdomen: Soft nontender, nondistended without rebound guarding or rigidity. Extremities: No cyanosis clubbing. He does have 1+ bilateral lower extremity edema. No calf tenderness or assymetry Spine/Back. Non tender to palpation. No CVA tenderness Skin: Good turgor without rashes. Neurologic exam: Cranial nerves two through 12 are intact. Motor and sensation are intact and symmetrical throughout. Course Administered Medications Parenteral Electrolytes (Normosol-R) 1,000 mls @ 125 mls/hr IV .Q8H SELENA Stop: 08/11/19 17:23 Last Admin: 07/12/19 17:54 Dose: 125 mls/hr Documented by: [id number] Discontinued Medications Sodium Chloride (Nss 1000ml) 250 mls @ 999 mls/hr IV .Q16M ONE Stop: 07/12/19 12:23 Last Infusion: 07/12/19 12:56 Dose: 0 mls/hr Documented by: [id number] Admin: 07/12/19 12:29 Dose: 999 mls/hr Documented by: [id number] Sodium Chloride (Nss 1000ml) 250 mls @ 999 mls/hr IV .Q16M ONE Stop: 07/12/19 13:36 Last Infusion: 07/12/19 14:09 Dose: 0 mls/hr Documented by: [id number] Admin: 07/12/19 13:52 Dose: 999 mls/hr Documented by: [id number] Parenteral Electrolytes (Normosol-R) 1,000 mls @ 999 mls/hr IV .Q1H1M ONE Stop: 07/12/19 16:11 Last Infusion: 07/12/19 17:06 Dose: 0 mls/hr Documented by: [id number] Admin: 07/12/19 15:53 Dose: 999 mls/hr Documented by: [id number] Medical Decision Making Differential Diagnosis Includes: Dehydration, CHF, sepsis, anemia, GI bleed, intra-abdominal process, infection, cardiac disease, electrolyte or metabolic abnormality, COVID Medical Records Attestation: I reviewed the patient's medical records. Home Medications Current Medication List: was personally reviewed by me Laboratory Data Attestation: I reviewed the patient's lab results. Result diagrams: 07/12/19 12:28 07/12/19 18:31 Lab Results 07/12/19 07/12/19 07/12/19 Range/Units 12:28 12:28 12:28 WBC 8.50 (4.8-10.8) K/uL RBC 4.87 (4.7-6.1) M/uL Hgb 16.5 (14.0-18.0) g/dL Hct 51.6 (42-52) % MCV 106.0 H (80-100) fL MCH 33.9 (25-34) pg MCHC 32.0 (32-36) g/dL RDW Std Deviation 62.9 H (36.4-46.3) fL RDW Coeff of Rhianna 16.2 H (11.5-14.5) % Plt Count 76 L (130-400) K/uL MPV 11.7 H (7.4-10.4) fL Immature Gran % (Auto) 1.2 % Neut % (Auto) 76.0 % Lymph % (Auto) 15.8 % [place] % (Auto) 6.2 % Eos % (Auto) 0.7 % Baso % (Auto) 0.1 % Immature Gran # (Auto) 0.10 H (0.00-0.02) K/uL Neut # (Auto) 6.46 (1.4-6.5) K/uL Lymph # (Auto) 1.34 (1.2-3.4) K/uL [place] # (Auto) 0.53 (0.11-0.59) K/uL Eos # (Auto) 0.06 (0-0.5) K/uL Baso # (Auto) 0.01 (0-0.2) K/uL PT 13.7 H (9.0-12.0) Seconds INR 1.3 H (0.9-1.1) APTT 28.6 (21.0-31.0) Seconds PTT Ratio 1.0 Sodium 136 (136-145) mmol/L Potassium 5.5 H (3.5-5.1) mmol/L Chloride 99 (98-107) mmol/L Carbon Dioxide 23 (21-32) mmol/L Anion Gap 15.0 H (3-11) BUN 98 H (7-18) mg/dl Creatinine 8.08 H* (0.6-1.4) mg/dl Est Cr Clr Drug Dosing 5.9 ml/min Est GFR ( Amer) 6.5 Est GFR (Non-Af Amer) 5.6 BUN/Creatinine Ratio 12.2 (10-20) Glucose 105 H (70-99) mg/dl Lactate (0.4-2.0) mmol/L Calcium 9.2 (8.5-10.1) mg/dl Magnesium 3.3 H (1.8-2.4) mg/dl Total Bilirubin 1.0 (0.2-1) mg/dl AST 16 (15-37) U/L ALT 36 (12-78) U/L Alkaline Phosphatase 75 (45-117) U/L Troponin I 0.036 (0-0.045) ng/ml NT-Pro-B Natriuret Pep 5036 H (0-1800) pg/ml Total Protein 6.6 (6.4-8.2) gm/dl Albumin 3.4 (3.4-5.0) gm/dl Globulin 3.2 (2.5-4.0) gm/dl Albumin/Globulin Ratio 1.1 (0.9-2) 07/12/19 07/12/19 Range/Units 12:28 14:50 WBC (4.8-10.8) K/uL RBC (4.7-6.1) M/uL Hgb (14.0-18.0) g/dL Hct (42-52) % MCV (80-100) fL MCH (25-34) pg MCHC (32-36) g/dL RDW Std Deviation (36.4-46.3) fL RDW Coeff of Rhianna (11.5-14.5) % Plt Count (130-400) K/uL MPV (7.4-10.4) fL Immature Gran % (Auto) % Neut % (Auto) % Lymph % (Auto) % [place] % (Auto) % Eos % (Auto) % Baso % (Auto) % Immature Gran # (Auto) (0.00-0.02) K/uL Neut # (Auto) (1.4-6.5) K/uL Lymph # (Auto) (1.2-3.4) K/uL [place] # (Auto) (0.11-0.59) K/uL Eos # (Auto) (0-0.5) K/uL Baso # (Auto) (0-0.2) K/uL PT (9.0-12.0) Seconds INR (0.9-1.1) APTT (21.0-31.0) Seconds PTT Ratio Sodium (136-145) mmol/L Potassium (3.5-5.1) mmol/L Chloride (98-107) mmol/L Carbon Dioxide (21-32) mmol/L Anion Gap (3-11) BUN (7-18) mg/dl Creatinine (0.6-1.4) mg/dl Est Cr Clr Drug Dosing ml/min Est GFR ( Amer) Est GFR (Non-Af Amer) BUN/Creatinine Ratio (10-20) Glucose (70-99) mg/dl Lactate 2.1 H* 1.9 (0.4-2.0) mmol/L Calcium (8.5-10.1) mg/dl Magnesium (1.8-2.4) mg/dl Total Bilirubin (0.2-1) mg/dl AST (15-37) U/L ALT (12-78) U/L Alkaline Phosphatase (45-117) U/L Troponin I (0-0.045) ng/ml NT-Pro-B Natriuret Pep (0-1800) pg/ml Total Protein (6.4-8.2) gm/dl Albumin (3.4-5.0) gm/dl Globulin (2.5-4.0) gm/dl Albumin/Globulin Ratio (0.9-2) Imaging Data Radiologist's Impression: Chest x-ray: 1. Bibasilar opacities, greater on the right. The findings may reflect pneumonia or pulmonary edema. Radiographic follow-up is recommended. 2. Small right and trace left pleural effusions. ECG Data Attestation: I personally reviewed and interpreted this ECG as follows: Indication: + weakness Rate (beats per minute): 58 Rhythm: + sinus bradycardia ECG Intervals/blocks: + Normal QRS, + Normal QT and + Normal OK ECG [place]: + Left axis deviation ECG ST segments: + Normal ST segments; no T-wave inversions ECG Findings: + PVCs; no PACs Comparison ECG Date: from (06/23/19) Change: no significant change Blood Pressure Blood Pressure Findings: Low blood pressure MDM Narrative This patient comes in as described above he has been weak he has had nausea vomiting diarrhea for about a week he saw his regular doctor on Friday and was given medicine for stomach and diarrhea he continues to have the symptoms he is also on a diuretic. His blood pressures been low in the 90s. He is had no fever. It may be that he is dry given his diuresis and diarrhea. He was given a small fluid bolus of 250 cc extensive sepsis and cardiac work-up was obtained which included blood cultures urinalysis and culture lactic acid imaging and EKG. He was reassessed frequently. He was placed on a quality assurance monitor final in room a 9. He apparently tested negative for COVID on Friday. His lab work reveals a significant elevated creatinine of 8 and a BUN of 90. He does have baseline renal insufficiency with a creatinine averaging about 2-1/2. I think this is mostly prerenal he did tolerate the first fluid bolus was given additional 250 cc normal saline bolus. Lactic acid is mildly elevated but he has no fever white count or any other symptoms suggest sepsis at this point. He may have some mild congestive changes on his chest x-ray so gentle hydration with small fluid boluses is warranted at this point he will need to be admitted/observe for further treatment and evaluation of his renal failure. His potassium is only mildly elevated 5.5 and he has no EKG changes I have consulted the [facility] hospitalist to see him Continuous cardiac monitoring: An order was placed for continuous cardiac monitoring due to the patient's complaint of weakness., Upon my interpretation he was noted to be in normal sinus rhythm with a rate of upon my Impression & Plan Acute renal failure, Weakness, Nausea vomiting and diarrhea, CHF (congestive heart failure), Acute dehydration Discharge Plan Visit Data *Final* Discharge Date/Time: 07/12/19 17:03 Chief Complaint: Abdominal Pain Stated Complaint: STOMACH PAIN, FEELS TERRIBLE ED Provider: Black Read Discharge Problem: Acute renal failure, Weakness, Nausea vomiting and diarrhea, CHF (congestive heart failure), Acute dehydration Patient Disposition: Admitted As Inpatient Discharge Instructions Interventions: ED Discharge Assessment Last Done: 07/12/19 17:03 Discharge Problem: Acute renal failure Qualifiers: Acute renal failure type: unspecified Qualified Code(s): N17.9 - Acute kidney failure, unspecified CHF (congestive heart failure) Qualifiers: Heart failure type: unspecified Heart failure chronicity: acute on chronic Qualified Code(s): I50.9 - Heart failure, unspecified
--- NOTE | 2019-07-12 12:39 | XRay Report ---
XR chest 1V portable CLINICAL HISTORY: SEPSIS COMPARISON STUDY: Chest radiograph June 23, 2019. FINDINGS: There are median sternotomy wires. Mild cardiomegaly is noted. There is no pneumothorax. Sm all right and trace left pleural effusions are noted. Moderate right lower lung airspace opacity is n oted. There is mild left lower lung airspace opacity. There is pulmonary vascular congestion. IMPRESSION: 1. Bibasilar opacities, greater on the right. The findings may reflect pneumonia or pulmonary edema. Radiographic follow-up is recommended. 2. Small right and trace left pleural effusions. ACT 112: Negative or not required by law. Electronically signed by: Dion Salinas M.D. 07/12/2019 12:38 PM
[2019-07-12 12:55] LABS: Hematocrit (blood only) 51.6 % (42-52); Hemoglobin 16.5 g/dL (14.0-18.0); Mean Corpuscular Hemoglobin 33.9 pg (25-34); RDW Coefficient of Variation 16.2 % (11.5-14.5); RDW Standard Deviation 62.9 fL (36.4-46.3); Red Blood Count 4.87 M/uL (4.7-6.1)
[2019-07-12 13:01] LABS: INR 1.3 (0.9-1.1); Partial Thromboplastin Time 28.6 Seconds (21.0-31.0); Prothrombin Time 13.7 Seconds (9.0-12.0)
[2019-07-12 13:05] LABS: Mean Platelet Volume 11.7 fL (7.4-10.4); Platelet Count 76 K/uL (130-400)
[2019-07-12 13:14] LABS: Albumin Globulin Ratio 1.1 (0.9-2); Albumin Level 3.4 gm/dl (3.4-5.0); BUN Creatinine Ratio 12.2 (10-20); Calcium 9.2 mg/dl (8.5-10.1); Creatinine Clr Calc Pharmacy 5.9 ml/min; Est GFR (African American) 6.5; Est GFR (Non-African American) 5.6; Globulin 3.2 gm/dl (2.5-4.0); Magnesium 3.3 mg/dl (1.8-2.4); Potassium 5.5 mmol/L (3.5-5.1); Total Protein 6.6 gm/dl (6.4-8.2); Troponin I 0.036 ng/ml (0-0.045)
[2019-07-12 13:22] LABS: Basophils # (auto) 0.01 K/uL (0-0.2); Basophils % (auto) 0.1 %; Eosinophils # (auto) 0.06 K/uL (0-0.5); Eosinophils % (auto) 0.7 %; Immature Granulocytes % (auto) 1.2 %; Lymphocytes # (auto) 1.34 K/uL (1.2-3.4); Lymphocytes % (auto) 15.8 %; Monocytes # (auto) 0.53 K/uL (0.11-0.59); Monocytes % (auto) 6.2 %; Neutrophils # (auto) 6.46 K/uL (1.4-6.5)
[2019-07-12] MEDS ORDERED: NORMOSOL-R 1,000 ML IV ONE (15:11)
--- NOTE | 2019-07-12 16:11 | History & Physical Report ---
Date of Service July 12, 2019 Assessment & Plan (1) Nausea vomiting and diarrhea: 84-year-old male was admitted on 12 Jul 2019 for nausea, vomiting, diarrhea for about two weeks. N/V/D, dehydration: Patient notes about two weeks of ongoing non-bloody nausea, vomiting, and diarrhea. Unclear source. Denies abdominal pain. Was recently hospitalized for chest pain from 29Apr to 02May. Presently seems more volume- down than acute pulmonary edema, though will likely be a balance. No present ACS-type symptoms. - In ED, afebrile, borderline but regular bradycardia, hypotensive to 92/37, normal room SpO2. WBC 8. Lactate 2.1. BNP 5000 (with no recent comparison). TnI 0.036 with an EKG with sinus bradycardia. COVID testing back on 08June was negative. pCXR noted bibasilar opacities greater on the right suggestive of pneumonia versus pulmonary edema as well as trace pleural effusions. Blood cultures sent. - In ED, treated with 250 mL IVF NS boluses x2. - Will rehydrate as discussed renal failure discussion below. Ordered CT a/p non-contrast to evaluate for obstruction. Will check stool studies and C. difficile as well. Control nausea with Zofran as needed. Recheck serial lactate and TnI. Recheck CXR in AM. 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 Acute on chronic stage III renal failure: Recent hospital discharge says creatinine baseline 1.71.9. Admit creatinine 8 with BUN 98. Given his volume losses and continued use of Lasix as well as spironolactone, suspect significa ntly pre-renal. - Will continue with rehydration with normosol bolus and maintenance. Check a FeNa as well as urinalysis with micro. Place a Ambrose catheter in case there is some obstructive process (e.g. BPH). - Consulted and discussed case with nephrology (Dr. Mock) at time of admission. Moderate aortic insufficiency: History of bioprosthetic valve replacement. Had TTE on 29Apr noting EF 65-70%. Had TTE on 01May noting moderate to severe bioprosthetic valve regurgitation and moderate valve stenosis. - Consulted cardiology for their input, particularly regarding fluid status. Hyperkalemia: Admit potassium 5.5, without acute EKG changes. Suspect related to hypovolemia. - Rehydrate and recheck in a.m. Hypermagnesemia: Admit mag 3.3. Suspect related to hypovolemia. - Rehydrate and recheck in a.m. Elevated INR: Admit INR 1.3. Remaining LFTs normal. Will recheck in AM. Ongoing medical issues: - HTN, HLD, CAD, cardiac arrest: Continue home aspirin, atorvastatin, Plavix, propranolol. Last cardiac cath on 30May. --- Hold home Lasix and spironolactone. - Elevated bilirubin: Noted during last admit. This admit T bili 1.0. - Thrombocytopenia: Long history of same. Admit platelets 76, slightly higher than his baseline. - Anxiety: Continue home escitalopram and lorazepam. - Enlarged prostate: Continue home alfuzosin ER. - Gout: Continue home allopurinol. - Possible GERD: Continue home pantoprazole. Code status: Full code. Diet: Clears for now, low potassium. DVT prophy: Heparin. PT/OT: Deferred. Disbo: Admit to PCU telemetry. (2) Dehydration: (3) Acute renal failure: (4) CKD (chronic kidney disease) stage 3, GFR 30-59 ml/min: (5) Aortic insufficiency: (6) Aortic stenosis: (7) History of aortic valve replacement with bioprosthetic valve: (8) Hyperkalemia: (9) Hypermagnesemia: (10) Elevated INR: (11) Hypertension: (12) Hyperlipidemia: (13) CAD (coronary artery disease): (14) Thrombocytopenia: (15) Anxiety: (16) Enlarged prostate: (17) Gout: History of Present Illness Chief Complaint: N/V/D, fatigue Primary Care Provider: Mario Gamez MD 84-year-old male states that he has been having ongoing nausea, vomiting, and diarrhea for about 2 weeks now. He denies any focal abdominal pain at this time including at present. Seems unclear on why he may have this. He does say that he was seen by his primary care provider (Dr. Gamez) but is unclear on what the evaluation work-up was. He also notes he was recently in the hospital for chest pain and fluid overload. He says that his Lasix dosing was recently decreased but he still has been taking it twice a day throughout this N/V/D time. Only other subjective complaint is generalized feeling of weakness. He denies any known fevers, chest pain, shortness of breath, extremity pains, or other acute concerns. Says his last p.o. was a small amount of cereal yesterday. Says that he was able to void this morning but has some baseline difficulty doing so. No recent changes regarding this. Denies any dysuria or hematuria. Follows with Dr. Owen for cardiology as outpatient. - PMH includes cardiac arrest, gastric ulcer, TIA, CKD stage III, CAD, elevated bilirubin, thrombocytopenia, aortic regurgitation, gout, hypogonadism, enlarged prostate, anxiety, hypertension, hyperlipidemia - PSH includes AVR with bioprosthetic valve, cardiac cath, carotid endarterectomy, cholecystectomy, inguinal hernia repair - Social history includes never smoker. Denies alcohol use. , lives at home alone. Allergies Allergy/AdvReac Type Severity Reaction Status Date / Time No Known Allergies Allergy Verified 06/23/19 10:39 Home Medications Home Medications Medication Instructions Recorded Confirmed Type alfuzosin 10 mg tablet,extended 10 mg PO QPM 05/25/19 07/12/19 History release 24 hr allopurinol 100 mg tablet 100 mg PO DAILYBL 05/25/19 07/12/19 History atorvastatin 20 mg tablet 20 mg PO QPM 05/25/19 07/12/19 History clopidogrel 75 mg tablet 75 mg PO DAILYBL 05/25/19 07/12/19 History cyclosporine 0.05 % eye drops in a 1 drp OPB DAILY 05/25/19 07/12/19 History dropperette furosemide 40 mg tablet 80 mg PO QAM 05/25/19 07/12/19 History lorazepam 0.5 mg tablet 0.5 mg PO HS 05/25/19 07/12/19 History spironolactone 50 mg tablet 25 mg PO HS 05/25/19 07/12/19 History vitamins A,C,V-eqwj-btyjgm 14,320 1 cap PO BID 05/25/19 07/12/19 History unit-226 mg-200 unit capsule Centrum MultiGummies 1 tab PO DAILY 06/23/19 07/12/19 History aspirin [Aspirin Low Dose] 81 mg PO DAILY 06/23/19 07/12/19 History furosemide 40 mg PO DAILYBL 06/23/19 07/12/19 History mometasone [Nasonex] 2 spray INTRANASAL DAILY 06/23/19 07/12/19 History nitroglycerin 0.4 mg SUBLINGUAL UD PRN 06/23/19 07/12/19 History pantoprazole 20 mg PO DAILY 06/23/19 07/12/19 History propranolol 10 mg PO BID #60 tab 06/26/19 07/12/19 Rx diphenoxylate-atropine 1 tab PO DIRECTED 07/12/19 07/12/19 History escitalopram oxalate 10 mg PO DAILY 07/12/19 07/12/19 History ondansetron HCl 4 mg PO DAILY PRN 07/12/19 07/12/19 History Past Med/Surg History Medical History (Updated 07/12/19 @ 17:11 by Hanna Torres MD) Anxiety Aortic insufficiency Aortic stenosis CAD (coronary artery disease), [place] coronary artery Cardiac arrest CHF (congestive heart failure) (Acute) CKD (chronic kidney disease) stage 3, GFR 30-59 ml/min (Acute) Enlarged prostate Gastric ulcer Gout Hyperlipidemia Hypertension Thrombocytopenia Transient cerebral ischemia Surgical History (Updated 07/12/19 @ 17:11 by Hanna Torres MD) Aortic valve replaced History of aortic valve replacement with bioprosthetic valve History of cardiac cath Hx of cataract extraction Hx of cholecystectomy Hx of inguinal hernia repair S/P skin biopsy Family History Father Stroke Hypertension Lung disease Social History Preferred Language: Bengali Communication Ability: Effective Stocking Inspector Required: No Beliefs That Will Affect Care: None marital status: / Current Living Situation: Alone current occupational status: retired Feels Safe at Home: Yes Smoking Status: Never smoker Hx Alcohol Use: No Hx Substance Use: No Review of Systems Review of Systems: Constitutional: Denies fevers, chills. Positive generalized weakness. Eyes: Denies any visual loss or diplopia ENT: Denies any ear/nose/throat pain or difficulty speaking or swallowing. Positive dry mouth. Respiratory: Denies any dyspnea, cough, hemoptysis Cardiovascular: Denies any chest pain or feeling of edema Gastrointestinal: Denies any abdominal pain. Positive nausea, vomiting, diarrhea. Musculoskeletal: Denies any acute extremity pains, myalgias, or focal weakness Skin: Denies any known acute rashes or lesions Neuro: Denies any headache, acute focal weakness or numbness, or difficulties with speech or swallow. Physical Exam Physical Exam: GENERAL: Awake, alert, well-appearing, in no acute distress. HENT: Normocephalic, atraumatic. Oropharynx is dry. EYES: Normal conjunctiva. Sclera non-icteric. NECK: Inspection normal. Non-tender. Supple and full ROM. No nuchal rigidity. CARDIAC: +S1S2 RRR, no murmurs. RESPIRATORY: Clear to auscultation. No wheezes or rales. Normal respiratory effort. GI: +BS, soft, non-distended. No tenderness to palpation, including suprapubic or CVA. No rebound or guarding. No appreciable masses. EXTREMITIES: No pedal / pre-tibial edema or calf tenderness. Moving all extremities naturally and easily. NEURO: No gross neuro deficits. Results & Data Results & Data ([facility]) Vital Signs (Past 12 Hours) Vital Signs Temp Pulse Resp BP Pulse Ox 07/12/19 15:35 60 20 95 07/12/19 15:31 61 19 95 07/12/19 15:30 57 L 15 109/40 L 95 07/12/19 15:01 58 L 15 92 07/12/19 15:00 62 15 92/43 L 91 07/12/19 14:31 59 L 12 89 L 07/12/19 14:30 58 L 15 101/43 L 89 L 07/12/19 14:01 60 13 92 07/12/19 14:00 59 L 17 93/46 L 91 07/12/19 13:31 60 22 07/12/19 13:30 59 L 15 109/41 L 07/12/19 13:01 63 15 07/12/19 13:00 61 13 93/54 L 07/12/19 12:30 61 18 92/45 L 96 07/12/19 12:12 65 18 07/12/19 12:00 60 16 92/37 L 94 07/12/19 11:43 36.5 C 60 20 93/50 L 93 Laboratory Results 07/12/19 07/12/19 07/12/19 Range/Units 14:50 12:28 12:28 WBC (4.8-10.8) K/uL RBC (4.7-6.1) M/uL Hgb (14.0-18.0) g/dL Hct (42-52) % MCV (80-100) fL MCH (25-34) pg MCHC (32-36) g/dL RDW Std Deviation (36.4-46.3) fL RDW Coeff of Rhianna (11.5-14.5) % Plt Count (130-400) K/uL MPV (7.4-10.4) fL Immature Gran % (Auto) % Neut % (Auto) % Lymph % (Auto) % [place] % (Auto) % Eos % (Auto) % Baso % (Auto) % Immature Gran # (Auto) (0.00-0.02) K/uL Neut # (Auto) (1.4-6.5) K/uL Lymph # (Auto) (1.2-3.4) K/uL [place] # (Auto) (0.11-0.59) K/uL Eos # (Auto) (0-0.5) K/uL Baso # (Auto) (0-0.2) K/uL PT (9.0-12.0) Seconds INR (0.9-1.1) APTT (21.0-31.0) Seconds PTT Ratio Sodium 136 (136-145) mmol/L Potassium 5.5 H (3.5-5.1) mmol/L Chloride 99 (98-107) mmol/L Carbon Dioxide 23 (21-32) mmol/L Anion Gap 15.0 H (3-11) BUN 98 H (7-18) mg/dl Creatinine 8.08 H* (0.6-1.4) mg/dl Est Cr Clr Drug Dosing 5.9 ml/min Est GFR ( Amer) 6.5 Est GFR (Non-Af Amer) 5.6 BUN/Creatinine Ratio 12.2 (10-20) Glucose 105 H (70-99) mg/dl Lactate 1.9 2.1 H* (0.4-2.0) mmol/L Calcium 9.2 (8.5-10.1) mg/dl Magnesium 3.3 H (1.8-2.4) mg/dl Total Bilirubin 1.0 (0.2-1) mg/dl AST 16 (15-37) U/L ALT 36 (12-78) U/L Alkaline Phosphatase 75 (45-117) U/L Troponin I 0.036 (0-0.045) ng/ml NT-Pro-B Natriuret Pep 5036 H (0-1800) pg/ml Total Protein 6.6 (6.4-8.2) gm/dl Albumin 3.4 (3.4-5.0) gm/dl Globulin 3.2 (2.5-4.0) gm/dl Albumin/Globulin Ratio 1.1 (0.9-2) 07/12/19 07/12/19 Range/Units 12:28 12:28 WBC 8.50 (4.8-10.8) K/uL RBC 4.87 (4.7-6.1) M/uL Hgb 16.5 (14.0-18.0) g/dL Hct 51.6 (42-52) % MCV 106.0 H (80-100) fL MCH 33.9 (25-34) pg MCHC 32.0 (32-36) g/dL RDW Std Deviation 62.9 H (36.4-46.3) fL RDW Coeff of Rhianna 16.2 H (11.5-14.5) % Plt Count 76 L (130-400) K/uL MPV 11.7 H (7.4-10.4) fL Immature Gran % (Auto) 1.2 % Neut % (Auto) 76.0 % Lymph % (Auto) 15.8 % [place] % (Auto) 6.2 % Eos % (Auto) 0.7 % Baso % (Auto) 0.1 % Immature Gran # (Auto) 0.10 H (0.00-0.02) K/uL Neut # (Auto) 6.46 (1.4-6.5) K/uL Lymph # (Auto) 1.34 (1.2-3.4) K/uL [place] # (Auto) 0.53 (0.11-0.59) K/uL Eos # (Auto) 0.06 (0-0.5) K/uL Baso # (Auto) 0.01 (0-0.2) K/uL PT 13.7 H (9.0-12.0) Seconds INR 1.3 H (0.9-1.1) APTT 28.6 (21.0-31.0) Seconds PTT Ratio 1.0 Sodium (136-145) mmol/L Potassium (3.5-5.1) mmol/L Chloride (98-107) mmol/L Carbon Dioxide (21-32) mmol/L Anion Gap (3-11) BUN (7-18) mg/dl Creatinine (0.6-1.4) mg/dl Est Cr Clr Drug Dosing ml/min Est GFR ( Amer) Est GFR (Non-Af Amer) BUN/Creatinine Ratio (10-20) Glucose (70-99) mg/dl Lactate (0.4-2.0) mmol/L Calcium (8.5-10.1) mg/dl Magnesium (1.8-2.4) mg/dl Total Bilirubin (0.2-1) mg/dl AST (15-37) U/L ALT (12-78) U/L Alkaline Phosphatase (45-117) U/L Troponin I (0-0.045) ng/ml NT-Pro-B Natriuret Pep (0-1800) pg/ml Total Protein (6.4-8.2) gm/dl Albumin (3.4-5.0) gm/dl Globulin (2.5-4.0) gm/dl Albumin/Globulin Ratio (0.9-2) Medications Administered Parenteral Electrolytes (Normosol-R) 1,000 mls @ 999 mls/hr IV .Q1H1M ONE Stop: 07/12/19 16:11 Last Admin: 07/12/19 15:53 Dose: 999 mls/hr Documented by: [id number] Discontinued Medications Sodium Chloride (Nss 1000ml) 250 mls @ 999 mls/hr IV .Q16M ONE Stop: 07/12/19 12:23 Last Infusion: 07/12/19 12:56 Dose: 0 mls/hr Documented by: [id number] Admin: 07/12/19 12:29 Dose: 999 mls/hr Documented by: [id number] Sodium Chloride (Nss 1000ml) 250 mls @ 999 mls/hr IV .Q16M ONE Stop: 07/12/19 13:36 Last Infusion: 07/12/19 14:09 Dose: 0 mls/hr Documented by: [id number] Admin: 07/12/19 13:52 Dose: 999 mls/hr Documented by: [id number] Code Status & VTE Plan Code Status Full code VTE Prophylaxis Plan VTE Prophylaxis will be ordered: Yes Supervising Physician Co-Signing Physician Notes I personally examined the patient and verified all aguilar points of history and exam, discussed case, and agree with decision making with Dr. Rubio Pt presents with 1 week of nausea/vomiting/diarrhea without abdominal pain or f yasmine. No clear cause. He does report that the diarrhea started before he left the hospital. He has continued to take his diuretics during this time as well. He is making minimal urine. He has not been around anyone with similar symptoms. His daughter has been living with him since discharge from his previous hospitalization 2 weeks ago but she has not been sick. The only change in medications from his last hospitalization was that his Lasix was changed to 80 mg in the morning and 40 mg in the afternoon, and his propranolol was increased to 10 mg p.o. twice daily. He denies shortness of breath or chest pains. No fevers or chills. Found to have a creatinine of 8 here with a BUN of 98,K+5.5 and borderline hypotensive History and ROS reviewed as above VSS Gen: AAOx3, NAD HEENT: Anicteric sclerae, EOMI CV: RRR 2/6 ZOE at the RUSB Pulm: Diminished breath sounds at the right base, otherwise clear, no wheezes Abd: +BS soft NT ND no masses or hernias Ext: Trace pitting edema right greater than left legs, 2+ DP pulses Skin: No rashes, warm/dry Neuro: Full strength throughout 84-year-old male with history as above, here with intractable nausea/vomiting/diarrhea and acute kidney injury, likely prerenal Ambrose catheter placed, give IV fluid hydration cautiously, antiemetics Serial BMP nephrology consultation Strict I's and O's -Holding diuretics Monitor on telemetry for arrhythmia Stool studies as noted above Cardiology consultation given complex cardiac issues with valvular disease Hold Lomotil from home until after stool studies return in case of C. difficile infection Clears diet as tolerated If persistent nausea/vomiting with no cause, consider imaging of the head although no neurologic deficits at this time Resident Activity Tracking Resident Involvement: Resident Care Provided Care Provided: Adult Hospital Medicine
--- NOTE | 2019-07-12 16:23 | CT Scan Report ---
CT SCAN OF THE ABDOMEN AND PELVIS WITHOUT IV CONTRAST CLINICAL HISTORY: Nausea and vomiting. Diarrhea. Renal failure. COMPARISON STUDY: Abdominal CT dated 10/04/2007. TECHNIQUE: CT scan of the abdomen and pelvis is performed from the lung bases to the proximal femora. Images are reviewed in the axial, sagittal, and coronal planes. IV contrast was not administered for this examination due to renal insufficiency. Note that the examination is suboptimal without IV cont rast. A dose lowering technique was utilized adhering to the principles of ALARA. CT DOSE: 385.23 mGy.cm FINDINGS: Lung bases: The patient is status post midline sternotomy. The heart is enlarged and without pericard ial effusion. There is a small to moderate right pleural effusion with right basilar consolidation. T race pleural effusion is seen on the left. Liver: The unenhanced liver is normal in size, contour, and attenuation. There is no intrahepatic nic iary ductal dilatation. Gallbladder: Surgically absent noting clips in the gallbladder fossa. Spleen: Normal in size and attenuation. Pancreas: The unenhanced pancreas is atrophic and grossly unremarkable. Adrenal glands: Unremarkable. Kidneys: The unenhanced kidneys demonstrate cortical atrophy and are without hydronephrosis. There ar e no renal calculi identified. There is no evidence of contour deforming renal mass lesion. Abdominal vasculature: The abdominal aorta is normal in course and caliber noting moderate to advance d atherosclerotic calcification. Bowel: There is moderate sigmoid diverticulosis without CT evidence of acute diverticulitis. No bowel obstruction is identified. The appendix is not identified. Peritoneum: There is no intraperitoneal free air. Trace abdominopelvic ascites is noted. Lymphadenopathy: None. Pelvic viscera: The prostate gland is enlarged measuring 5.5 cm in transverse diameter. The bladder i s decompressed around a Ambrose catheter. There is pericystic inflammation. Skeletal structures: The skeletal structures are osteopenic. No lytic or blastic lesions are seen. IMPRESSION: 1. There is a small to moderate right pleural effusion with associated right basilar consolidation. T his could represent atelectasis and/or pneumonia/aspiration pneumonitis. Clinical correlation will be required. 2. Cardiomegaly and trace left pleural effusion. 3. Pericystic inflammation suggests cystitis. Correlation with clinical findings and urinalysis will be required. 4. There is trace abdominopelvic ascites. 5. Prostatomegaly. 6. Colonic diverticulosis without CT evidence of acute diverticulitis. 7. Additional findings as above. ACT 112: Negative or not required by law. Electronically signed by: aJrret Hutson M.D. 07/12/2019 4:22 PM
--- NOTE | 2019-07-12 17:00 | Electrocardiogram Report ---
Test Reason : Blood Pressure : / mmHG Vent. Rate : 058 BPM Atrial Rate : 058 BPM P-R Int : 130 ms QRS Dur : 102 ms QT Int : 416 ms P-R-T Axes : 061 -33 -67 degrees QTc Int : 408 ms Sinus bradycardia Possible Left atrial enlargement Left axis deviation Abnormal ECG Confirmed by Dudley Caro ([id number]) on 07/12/2019 5:00:06 PM Referred By: REFERRED SELF Confirmed By:Jhonathan Caro
[2019-07-12] MEDS ORDERED: ONDANSETRON INJ 2 MG/ML 2 ML VIAL IV PRN (17:24)
[2019-07-12] MEDS ORDERED: NORMOSOL-R 1,000 ML IV SCH (17:24)
[2019-07-12] MEDS ORDERED: ACETAMINOPHEN 325 MG TAB PO PRN (17:24)
--- NOTE | 2019-07-12 17:35 | Billing Data ---
Date of Service July 12, 2019 Coding Level of Care Code 20770 Initial Inpt Care Lvl 3
[2019-07-12 19:18] LABS: BUN Creatinine Ratio 11.8 (10-20); Calcium 8.7 mg/dl (8.5-10.1); Creatinine Clr Calc Pharmacy 5.9 ml/min; Est GFR (African American) 6.4; Est GFR (Non-African American) 5.6; Potassium 5.9 mmol/L (3.5-5.1); Troponin I 0.039 ng/ml (0-0.045)
[2019-07-12] MEDS ORDERED: SODIUM CHLORIDE 0.9% IV STA (19:46)
[2019-07-12] MEDS ORDERED: CALCIUM GLUCONATE IV STA (19:46)
[2019-07-12] MEDS ORDERED: PATIROMER CALCIUM SORBITEX 8.4 GM PACK PO ONE (19:47)
[2019-07-12] MEDS ORDERED: CALCIUM GLUCONATE 10% 1,000 MG in SODIUM CHLORIDE 0.9% 50 ML IV ONE (20:00)
[2019-07-12] MEDS: PATIROMER CALCIUM SORBITEX 8.4 GM PACK PO SCH (20:16)
[2019-07-12] MEDS: ALFUZOSIN HCL 10 MG TAB PO SCH (20:23)
[2019-07-12] MEDS: ATORVASTATIN 20 MG TAB PO SCH (20:23)
[2019-07-12] MEDS: PROPRANOLOL HCL 10 MG TAB PO SCH (20:24)
[2019-07-12] MEDS: HEPARIN SOD 5,000 UNIT/0.5 ML VIAL SQ SCH (20:24)
[2019-07-12] MEDS ORDERED: INSULIN HUMAN REGULAR PER UNIT 10 UNITS in SYRINGE 9.9 ML IV ONE (20:29)
[2019-07-12] MEDS ORDERED: DEXTROSE 50% 50 ML SYRINGE IV ONE (20:30)
[2019-07-12] MEDS ORDERED: CEROVITE ADV FORMULA TAB PO SCH (21:00)
--- NOTE | 2019-07-12 21:36 | Nephrology Consultation ---
Date of Consultation July 12, 2019 Assessment & Plan (1) FABIAN (acute kidney injury): -- Oliguric -- Complicated by hyperkalemia -- CT did not demonstrate obstruction -- Patiromer 8.4 grams + calcium gluconate 2 grams now -- Continue balanced IVF to encourage slightly positive fluid balance -- Unfortunately, renal dysfunction is not responding to IVF... -- Clinical presentation consistent with ATN -- Very likely that GROUND WATER TECHNICIAN will be required for continued management (alternative consideration provided for transition to palliative care) -- Mr. Arauz is uncertain whether he will proceed with dialysis -- DNR/DNI was updated in accordance with patient's expressed wishes -- Urine output will be monitored closely -- Metabolic profile will be repeated tonight and tomorrow AM -- Additional potassium binders and medical management will be provided as needed -- NPO p MN for possible dialysis catheter placement tomorrow -- Ambrose intact (2) CKD (chronic kidney disease) stage 3, GFR 30-59 ml/min: -- Baseline creatinine 1.7 to 2.0 mg/dL -- Notable symmetric atrophy -- Guarded prognosis of renal recovery (3) CAD (coronary artery disease), [place] coronary artery: -- Cardiology consultation pending -- Complex history but thankfully no active anginal symptoms (4) History of aortic valve replacement with bioprosthetic valve: -- Chronic constrictive physiology following replacement -- Volume status difficult to manage -- Diuretics held -- Moderate to severe valvular insufficiency noted -- Cautious IVF challenge continued with close monitoring -- Trial of IV loop diuretics to be considered for persistent oliguria and hyperkalemia History of Present Illness Reason for Consultation: FABIAN/CKD; hyperkalemia Requesting Physician: Hanna Torres MD Attending Physician: Hanna Torres MD History of Present Illness Mr. Brandyn Arauz is an 84-year-old male with cardiovascular disease and chronic kidney disease. Nephrology consultation was provided this evening for acute kidney injury and hyperkalemia. Plan of care was reviewed with Dr. Torres. Urine output has been minimal. Ambrose has drained approximately 20 ml of yellow urine since admission. 1.5+ L of IVF provided since presentation. BP slightly low but acceptable. The patient reported persistent nausea and some mild discomfort from Ambrose placement but otherwise he felt well at the time of my assessment. EKG does not demonstrate acute changes. Mr. Arauz has CKD III A1. Baseline creatinine has been 1.7-2.0 mg/dL. The patient has never been previously evaluated by a multi spindle operator. CT of the abdomen was personally reviewed. Kidneys are symmetrically atrophic. No significant calcifications or nephrolithiasis noted. No evidence of obstruction. Medical history is significant for coronary artery disease with a history of CABG x 1 with SVG to OM. Mr. Ahumada has had PCI with stent to his LAD. A left heart catheterization was performed for angina on June 23. The study demonstrated high-grade stenosis of a proximal non-dominant RCA which was not amenable to PCI. Left to right collaterals noted. LVED was found to be notably elevated. Medical history includes bioprosthetic AVR for calcific aortic stenosis. 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 TTE in May demonstrated moderate to severe aortic regurgitation. Mr. Ahumada was admitted to [facility] from 06/22-06/26/19. During this hospitalization, serum creatinine was stable at baseline. Following discharge, repeat laboratory studies included a creatinine of 2.45 mg/dL. Mr. Monteiros activity tolerance has been poor since he left the hospital. He describes persistent anorexia and extreme fatigue. His daughter has come from [facility] to stay with him and assist at home. Nausea has been persistent and worsening. Mr. Arauz denies any abdominal pain. He has had persistent vomiting for 2 weeks. This typically occurs after meals. Emesis has been non-bloody and non- bilious. Stools have been very loose. The patient has been moving his bowels generally once per day. The consistency is mostly liquid. There has not been any evidence of blood in the stool. Within the past 48 hours, urine output has declined dramatically. The patient voided once a very small amount yesterday. There was no dysuria. He has not experienced significant chest pain since recent hospital discharge. He denies significant dyspnea at rest. 2-3 pillow orthopnea persists. Mr. Arauz denies edema. I discussed the current condition in detail. Mr. Arauz clearly stated a DNR/DNI. He has a living will outlining this. He has not discussed this with his daughter. He states that he had a friend who was on hemodialysis in the past. Mr. Arauz is uncertain whether he would consent to dialysis if needed. Medical history is also notable for gout, BPH, a history of small right parietal lobe CVA in , hypertension, a gastric ulcer, and L CEA. His PCP is Dr. Gamez. He recently saw his PCP earlier this month. Mr. Arauz lives alone in [facility]. Allergies Allergy/AdvReac Type Severity Reaction Status Date / Time No Known Allergies Allergy Verified 06/23/19 10:39 Home Medications Home Medications Medication Instructions Recorded Confirmed Type alfuzosin 10 mg tablet,extended 10 mg PO QPM 05/25/19 07/12/19 History release 24 hr allopurinol 100 mg tablet 100 mg PO DAILYBL 05/25/19 07/12/19 History atorvastatin 20 mg tablet 20 mg PO QPM 05/25/19 07/12/19 History clopidogrel 75 mg tablet 75 mg PO DAILYBL 05/25/19 07/12/19 History cyclosporine 0.05 % eye drops in a 1 drp OPB DAILY 05/25/19 07/12/19 History dropperette furosemide 40 mg tablet 80 mg PO QAM 05/25/19 07/12/19 History lorazepam 0.5 mg tablet 0.5 mg PO HS 05/25/19 07/12/19 History spironolactone 50 mg tablet 25 mg PO HS 05/25/19 07/12/19 History vitamins A,C,I-xppf-icofbq 14,320 1 cap PO BID 05/25/19 07/12/19 History unit-226 mg-200 unit capsule Centrum MultiGummies 1 tab PO DAILY 06/23/19 07/12/19 History aspirin [Aspirin Low Dose] 81 mg PO DAILY 06/23/19 07/12/19 History furosemide 40 mg PO DAILYBL 06/23/19 07/12/19 History mometasone [Nasonex] 2 spray INTRANASAL DAILY 06/23/19 07/12/19 History nitroglycerin 0.4 mg SUBLINGUAL UD PRN 06/23/19 07/12/19 History pantoprazole 20 mg PO DAILY 06/23/19 07/12/19 History propranolol 10 mg PO BID #60 tab 06/26/19 07/12/19 Rx diphenoxylate-atropine 1 tab PO DIRECTED 05/18/20 05/18/20 History escitalopram oxalate 10 mg PO DAILY 07/12/19 07/12/19 History ondansetron HCl 4 mg PO DAILY PRN 07/12/19 07/12/19 History Patient History Medical History Anxiety Aortic insufficiency Aortic stenosis CAD (coronary artery disease), [place] coronary artery Cardiac arrest CHF (congestive heart failure) (Acute) CKD (chronic kidney disease) stage 3, GFR 30-59 ml/min (Acute) Enlarged prostate Gastric ulcer Gout Hyperlipidemia Hypertension Thrombocytopenia Transient cerebral ischemia Surgical History Aortic valve replaced History of aortic valve replacement with bioprosthetic valve History of cardiac cath Hx of cataract extraction Hx of cholecystectomy Hx of inguinal hernia repair S/P skin biopsy Family History Father Stroke Hypertension Lung disease Social History Preferred Language: Telugu Communication Ability: Effective Postal Inspector Required: No Beliefs That Will Affect Care: None marital status: / Current Living Situation: Alone current occupational status: retired Feels Safe at Home: Yes Safety Concerns: Feels Safe At This Time Smoking Status: Never smoker Hx Alcohol Use: No Hx Substance Use: No Review of Systems Review of Systems: All systems reviewed & are unremarkable except as noted in HPI & below Physical Exam Constitutional: well developed and + thin; no acute distress Eyes: + anicteric sclerae ENMT: Mouth: no oral mucosal abnormality and oral mucous membranes not dry Neck: normal visual inspection and trachea midline Respiratory: normal respiratory effort Auscultation: lungs clear to auscultation bilaterally Cardiovascular: Rate/Rhythm: + bradycardic Heart Sounds: normal S1, normal S2 and + murmur Vessels: + JVD Extremities: normal capillary refill and + edema Gastrointestinal (Abdomen): Percussion/Palpation: abdomen soft; abdomen nontender Musculoskeletal: Extremities: no cyanosis and no clubbing Skin: + turgor decreased Neurologic: Motor/Sensory: no tremor and no asterixis Psychiatric: Orientation: alert and oriented x 3 Results & Data Vital Signs (Past 12 Hours) Vital Signs Temp Pulse Pulse Resp BP BP Pulse Ox 07/12/19 19:13 36.4 C L 62 24 94/45 L 94 07/12/19 18:04 67 07/12/19 17:24 36.5 C 62 18 113/58 L 95 07/12/19 16:35 63 22 110/68 07/12/19 16:34 65 16 07/12/19 15:35 60 20 95 07/12/19 15:31 61 19 95 07/12/19 15:30 57 L 15 109/40 L 95 07/12/19 15:01 58 L 15 92 07/12/19 15:00 62 15 92/43 L 91 07/12/19 14:31 59 L 12 89 L 07/12/19 14:30 58 L 15 101/43 L 89 L 07/12/19 14:01 60 13 92 07/12/19 14:00 59 L 17 93/46 L 91 07/12/19 13:31 60 22 07/12/19 13:30 59 L 15 109/41 L 07/12/19 13:01 63 15 07/12/19 13:00 61 13 93/54 L 07/12/19 12:30 61 18 92/45 L 96 07/12/19 12:12 65 18 07/12/19 12:00 60 16 92/37 L 94 07/12/19 11:43 36.5 C 60 20 93/50 L 93 Laboratory Results Laboratory Results - last 24 hr 07/12/19 07/12/19 07/12/19 12:28 12:28 12:28 WBC 8.50 RBC 4.87 Hgb 16.5 Hct 51.6 MCV 106.0 H MCH 33.9 MCHC 32.0 RDW Std Deviation 62.9 H RDW Coeff of Rhianna 16.2 H Plt Count 76 L MPV 11.7 H Immature Gran % (Auto) 1.2 Neut % (Auto) 76.0 Lymph % (Auto) 15.8 [place] % (Auto) 6.2 Eos % (Auto) 0.7 Baso % (Auto) 0.1 Immature Gran # (Auto) 0.10 H Neut # (Auto) 6.46 Lymph # (Auto) 1.34 [place] # (Auto) 0.53 Eos # (Auto) 0.06 Baso # (Auto) 0.01 PT 13.7 H INR 1.3 H APTT 28.6 PTT Ratio 1.0 Sodium 136 Potassium 5.5 H Chloride 99 Carbon Dioxide 23 Anion Gap 15.0 H BUN 98 H Creatinine 8.08 H* Est Cr Clr Drug Dosing 5.9 Est GFR ( Amer) 6.5 Est GFR (Non-Af Amer) 5.6 BUN/Creatinine Ratio 12.2 Glucose 105 H POC Glucose Lactate Calcium 9.2 Magnesium 3.3 H Total Bilirubin 1.0 AST 16 ALT 36 Alkaline Phosphatase 75 Lactate Dehydrogenase Troponin I 0.036 NT-Pro-B Natriuret Pep 5036 H Total Protein 6.6 Albumin 3.4 Globulin 3.2 Albumin/Globulin Ratio 1.1 07/12/19 07/12/19 07/12/19 12:28 14:50 18:31 WBC RBC Hgb Hct MCV MCH MCHC RDW Std Deviation RDW Coeff of Rhainna Plt Count MPV Immature Gran % (Auto) Neut % (Auto) Lymph % (Auto) [place] % (Auto) Eos % (Auto) Baso % (Auto) Immature Gran # (Auto) Neut # (Auto) Lymph # (Auto) [place] # (Auto) Eos # (Auto) Baso # (Auto) PT INR APTT PTT Ratio Sodium 137 Potassium 5.9 H Chloride 99 Carbon Dioxide 23 Anion Gap 15.0 H BUN 96 H Creatinine 8.11 H* Est Cr Clr Drug Dosing 5.9 Est GFR ( Amer) 6.4 Est GFR (Non-Af Amer) 5.6 BUN/Creatinine Ratio 11.8 Glucose 91 POC Glucose Lactate 2.1 H* 1.9 Calcium 8.7 Magnesium Total Bilirubin AST ALT Alkaline Phosphatase Lactate Dehydrogenase Troponin I 0.039 NT-Pro-B Natriuret Pep Total Protein Albumin Globulin Albumin/Globulin Ratio 07/12/19 07/12/19 07/12/19 18:31 20:14 21:17 WBC RBC Hgb Hct MCV MCH MCHC RDW Std Deviation RDW Coeff of Rhianna Plt Count MPV Immature Gran % (Auto) Neut % (Auto) Lymph % (Auto) [place] % (Auto) Eos % (Auto) Baso % (Auto) Immature Gran # (Auto) Neut # (Auto) Lymph # (Auto) [place] # (Auto) Eos # (Auto) Baso # (Auto) PT INR APTT PTT Ratio Sodium Potassium Chloride Carbon Dioxide Anion Gap BUN Creatinine Est Cr Clr Drug Dosing Est GFR ( Amer) Est GFR (Non-Af Amer) BUN/Creatinine Ratio Glucose POC Glucose 97 192 H Lactate Calcium Magnesium Total Bilirubin AST ALT Alkaline Phosphatase Lactate Dehydrogenase 321 H Troponin I NT-Pro-B Natriuret Pep Total Protein Albumin Globulin Albumin/Globulin Ratio PG Care Time/CCT Total # of Minutes Spent Total Time Spent with Patient: Total time spent is greater than 50% in coordination of care (as documented) at patient's floor/unit and/or counseling patient: Coding Level of Care Code 11941 Inpt Consult Level 5 Diagnoses FABIAN (acute kidney injury) N17.9 CKD (chronic kidney disease) stage 3, GFR 30-59 ml/min N18.3 CAD (coronary artery disease), [place] coronary artery I25.110 [place] vs. transplanted heart: [place] heart Associated angina: with unstable angina History of aortic valve replacement with bioprosthetic valve Z95.3 (1) CAD (coronary artery disease), [place] coronary artery [place] vs. transplanted heart: [place] heart Associated angina: with unstable angina Qualified Code(s): I25.110 - Atherosclerotic heart disease of [place] coronary artery with unstable angina pectoris
[2019-07-12] MEDS: SODIUM BICARBONATE 8.4% 75 MEQ in SODIUM CHLORIDE 0.45 % 1,000 ML IV SCH (22:48)
[2019-07-12] MEDS: LORazepam 0.5 MG TAB PO SCH (22:48)
[2019-07-12 23:46] LABS: BUN Creatinine Ratio 11.3 (10-20); Calcium 8.6 mg/dl (8.5-10.1); Creatinine Clr Calc Pharmacy 5.7 ml/min; Est GFR (African American) 6.2; Est GFR (Non-African American) 5.3; Potassium 5.1 mmol/L (3.5-5.1)
[2019-07-13 07:16] LABS: Hematocrit (blood only) 48.5 % (42-52); Hemoglobin 15.3 g/dL (14.0-18.0); Mean Corpuscular Hemoglobin 32.8 pg (25-34); Mean Corpuscular Hgb Conc 31.5 g/dL (32-36); Mean Corpuscular Volume 104.1 fL (80-100); RDW Coefficient of Variation 16.4 % (11.5-14.5); RDW Standard Deviation 61.9 fL (36.4-46.3); Red Blood Count 4.66 M/uL (4.7-6.1); White Blood Count 10.79 K/uL (4.8-10.8)
[2019-07-13 07:24] LABS: Platelet Count 60 K/uL (130-400)
[2019-07-13 07:39] LABS: INR 1.4 (0.9-1.1); Prothrombin Time 14.5 Seconds (9.0-12.0)
[2019-07-13 07:40] LABS: Basophils # (auto) 0.01 K/uL (0-0.2); Basophils % (auto) 0.1 %; Eosinophils # (auto) 0.07 K/uL (0-0.5); Eosinophils % (auto) 0.6 %; Immature Granulocytes # (auto) 0.09 K/uL (0.00-0.02); Immature Granulocytes % (auto) 0.8 %; Lymphocytes # (auto) 1.23 K/uL (1.2-3.4); Lymphocytes % (auto) 11.4 %; Monocytes % (auto) 10.2 %; Neutrophils # (auto) 8.29 K/uL (1.4-6.5); Neutrophils % (auto) 76.9 %; RBC Morphology Unremarkable
[2019-07-13 08:06] LABS: BUN Creatinine Ratio 10.8 (10-20); Calcium 8.4 mg/dl (8.5-10.1); Creatinine Clr Calc Pharmacy 5.5 ml/min; Est GFR (Non-African American) 5.1; Magnesium 3.1 mg/dl (1.8-2.4); Potassium 5.4 mmol/L (3.5-5.1)
--- NOTE | 2019-07-13 08:31 | XRay Report ---
XR chest 2V PA/lateral CLINICAL HISTORY: 84 years-old Male presenting with eval for pulm edema. TECHNIQUE: Frontal and lateral views of the chest were obtained. COMPARISON: 07/12/2019. FINDINGS: Median sternotomy wires and coronary artery bypass rings noted. Aortic valve repair noted. Several ex ternal leads project over the thorax to grating evaluation. Atherosclerosis of the aortic arch. Cardi ac silhouette moderately enlarged. Mild pulmonary vascular prominence. Interstitial prominence has sl ightly decreased from prior. Persistent small to moderate right and trace left pleural effusions. Sli ghtly improved aeration of the lung bases. No new focal opacity. No pneumothorax. Degenerative change s of the thoracic spine. Cholecystectomy clips noted. IMPRESSION: 1. Slight decrease in congestive change though persistent volume overload is present. 2. Stable to slightly improved aeration of the lung bases. Underlying consolidation/pneumonia at the right lung base not excluded. 3. Persistent bilateral pleural effusions. ACT 112: Negative or not required by law. Electronically signed by: Smai Case M.D. 07/13/2019 8:29 AM
[2019-07-13] MEDS ORDERED: CYCLOSPORINE OPB SCH (09:00)
[2019-07-13] MEDS: HEPARIN SOD 5,000 UNIT/0.5 ML VIAL SQ SCH (09:27)
[2019-07-13] MEDS: PANTOprazole 40 MG TAB PO SCH (09:57)
[2019-07-13] MEDS: ESCITALOPRAM OXALATE 10 MG TAB PO SCH (09:57)
[2019-07-13] MEDS: ASPIRIN 81 MG ECTAB PO SCH (09:57)
[2019-07-13] MEDS: PROPRANOLOL HCL 10 MG TAB PO SCH ×2 (09:58→20:36)
[2019-07-13] MEDS: FLUTICASONE PROPIONATE NA SPR 16 GM BTL SCH (10:00)
[2019-07-13] MEDS: CLOPIDOGREL BISULFATE 75 MG TAB PO SCH (10:01)
--- NOTE | 2019-07-13 10:19 | Nephrology Progress Note ---
Date of Service July 13, 2019 Assessment & Plan (1) FABIAN (acute kidney injury): -- Remain oligoanuric -- Hyperkalemic and significantly azotemic, I have suggested that hemodialysis be considered for management of FABIAN -- Clinical presentation consistent with ATN superimposed on CKD -- Unfortunately no response to IV hydration -- I discussed the role of hemodialysis with Mr. Arauz in detail -- I reviewed the indications for dialysis with the patient's daughters at Mr. Arauz's request -- At this time, Mr. Arauz does not want to proceed with hemodialysis -- His daughter's remain hopeful that he will change his mind: Princess can be contacted at [phone] -- Cardiology consult pending -- Remains NPO for possible permcath pending follow up -- I discussed with Dr. Smith this morning, he is available to place permcath today if patient agreeable -- Consider palliative care consultation pending follow up discussion -- Repeat BMP this afternoon -- Renal diet -- CT did not demonstrate obstruction -- Will continue HCO3 gtt at low rate while NPO -- Ambrose intact (2) CKD (chronic kidney disease) stage 3, GFR 30-59 ml/min: -- Baseline creatinine 1.7 to 2.0 mg/dL -- Notable symmetric atrophy -- Guarded prognosis of renal recovery (3) CAD (coronary artery disease), [place] coronary artery: -- Cardiology consultation pending (4) History of aortic valve replacement with bioprosthetic valve: -- Chronic constrictive physiology following replacement -- Diuretics held -- Moderate to severe valvular insufficiency noted -- Cautious IVF challenge continued with close monitoring -- Trial of IV loop diuretics to be considered as needed Admission and Anticipated Discharge Date Admission Date: July 12, 2019 Subjective No acute events overnight. Mr. Arauz states that he feels well. He denies chest pain or palpitations. He denies shortness of breath. Nausea improved. No appetite. Denies abdominal pain. No bowel movement. Ambrose draining a few small amount of darkly concentrated urine. Review of Systems Review of Systems: All systems reviewed & are unremarkable except as noted in HPI & below Physical Exam Constitutional: well developed and + thin; no acute distress Eyes: + anicteric sclerae ENMT: Mouth: no oral mucosal abnormality and oral mucous membranes not dry Neck: normal visual inspection and trachea midline Respiratory: normal respiratory effort Auscultation: lungs clear to auscultation bilaterally Cardiovascular: Rate/Rhythm: regular rate Heart Sounds: normal S1, normal S2 and + murmur Vessels: + JVD Extremities: normal capillary refill Gastrointestinal (Abdomen): Percussion/Palpation: abdomen soft; abdomen nontender Musculoskeletal: Extremities: no cyanosis and no clubbing Skin: + turgor decreased Neurologic: Motor/Sensory: no tremor and no asterixis Psychiatric: Orientation: alert and oriented x 3 Results & Data ([facility]) Vital Signs (Past 12 Hours) Vital Signs Temp Pulse Pulse Resp BP Pulse Ox 07/13/19 07:49 36.9 C 65 18 93/44 L 90 07/13/19 07:42 69 07/13/19 03:18 36.6 C 68 18 98/42 L 91 07/12/19 23:43 36.7 C 61 18 87/41 L 91 07/12/19 23:27 67 Laboratory Results Laboratory Results - last 24 hr 07/12/19 07/12/19 07/12/19 12:28 12:28 12:28 WBC 8.50 RBC 4.87 Hgb 16.5 Hct 51.6 MCV 106.0 H MCH 33.9 MCHC 32.0 RDW Std Deviation 62.9 H RDW Coeff of Rhianna 16.2 H Plt Count 76 L MPV 11.7 H Immature Gran % (Auto) 1.2 Neut % (Auto) 76.0 Lymph % (Auto) 15.8 [place] % (Auto) 6.2 Eos % (Auto) 0.7 Baso % (Auto) 0.1 Immature Gran # (Auto) 0.10 H Neut # (Auto) 6.46 Lymph # (Auto) 1.34 [place] # (Auto) 0.53 Eos # (Auto) 0.06 Baso # (Auto) 0.01 RBC Morphology PT 13.7 H INR 1.3 H APTT 28.6 PTT Ratio 1.0 Sodium 136 Potassium 5.5 H Chloride 99 Carbon Dioxide 23 Anion Gap 15.0 H BUN 98 H Creatinine 8.08 H* Est Cr Clr Drug Dosing 5.9 Est GFR ( Amer) 6.5 Est GFR (Non-Af Amer) 5.6 BUN/Creatinine Ratio 12.2 Glucose 105 H POC Glucose Lactate Calcium 9.2 Phosphorus Magnesium 3.3 H Total Bilirubin 1.0 AST 16 ALT 36 Alkaline Phosphatase 75 Lactate Dehydrogenase Troponin I 0.036 NT-Pro-B Natriuret Pep 5036 H Total Protein 6.6 Albumin 3.4 Globulin 3.2 Albumin/Globulin Ratio 1.1 Specimen Hemolysis 07/12/19 07/12/19 07/12/19 12:28 14:50 18:31 WBC RBC Hgb Hct MCV MCH MCHC RDW Std Deviation RDW Coeff of Rhianna Plt Count MPV Immature Gran % (Auto) Neut % (Auto) Lymph % (Auto) [place] % (Auto) Eos % (Auto) Baso % (Auto) Immature Gran # (Auto) Neut # (Auto) Lymph # (Auto) [place] # (Auto) Eos # (Auto) Baso # (Auto) RBC Morphology PT INR APTT PTT Ratio Sodium 137 Potassium 5.9 H Chloride 99 Carbon Dioxide 23 Anion Gap 15.0 H BUN 96 H Creatinine 8.11 H* Est Cr Clr Drug Dosing 5.9 Est GFR ( Amer) 6.4 Est GFR (Non-Af Amer) 5.6 BUN/Creatinine Ratio 11.8 Glucose 91 POC Glucose Lactate 2.1 H* 1.9 Calcium 8.7 Phosphorus Magnesium Total Bilirubin AST ALT Alkaline Phosphatase Lactate Dehydrogenase Troponin I 0.039 NT-Pro-B Natriuret Pep Total Protein Albumin Globulin Albumin/Globulin Ratio Specimen Hemolysis 07/12/19 07/12/19 07/12/19 18:31 20:14 21:17 WBC RBC Hgb Hct MCV MCH MCHC RDW Std Deviation RDW Coeff of Rhianna Plt Count MPV Immature Gran % (Auto) Neut % (Auto) Lymph % (Auto) [place] % (Auto) Eos % (Auto) Baso % (Auto) Immature Gran # (Auto) Neut # (Auto) Lymph # (Auto) [place] # (Auto) Eos # (Auto) Baso # (Auto) RBC Morphology PT INR APTT PTT Ratio Sodium Potassium Chloride Carbon Dioxide Anion Gap BUN Creatinine Est Cr Clr Drug Dosing Est GFR ( Amer) Est GFR (Non-Af Amer) BUN/Creatinine Ratio Glucose POC Glucose 97 192 H Lactate Calcium Phosphorus Magnesium Total Bilirubin AST ALT Alkaline Phosphatase Lactate Dehydrogenase 321 H Troponin I NT-Pro-B Natriuret Pep Total Protein Albumin Globulin Albumin/Globulin Ratio Specimen Hemolysis 07/12/19 07/13/19 07/13/19 23:03 07:07 07:07 WBC 10.79 RBC 4.66 L Hgb 15.3 Hct 48.5 MCV 104.1 H MCH 32.8 MCHC 31.5 L RDW Std Deviation 61.9 H RDW Coeff of Rhianna 16.4 H Plt Count 60 L MPV 11.0 H Immature Gran % (Auto) 0.8 Neut % (Auto) 76.9 Lymph % (Auto) 11.4 [place] % (Auto) 10.2 Eos % (Auto) 0.6 Baso % (Auto) 0.1 Immature Gran # (Auto) 0.09 H Neut # (Auto) 8.29 H Lymph # (Auto) 1.23 [place] # (Auto) 1.10 H Eos # (Auto) 0.07 Baso # (Auto) 0.01 RBC Morphology Unremarkable PT 14.5 H INR 1.4 H APTT PTT Ratio Sodium 138 Potassium 5.1 Chloride 101 Carbon Dioxide 23 Anion Gap 14.0 H BUN 95 H Creatinine 8.40 H* Est Cr Clr Drug Dosing 5.7 Est GFR ( Amer) 6.2 Est GFR (Non-Af Amer) 5.3 BUN/Creatinine Ratio 11.3 Glucose 101 H POC Glucose Lactate Calcium 8.6 Phosphorus Magnesium Total Bilirubin AST ALT Alkaline Phosphatase Lactate Dehydrogenase Troponin I NT-Pro-B Natriuret Pep Total Protein Albumin Globulin Albumin/Globulin Ratio Specimen Hemolysis 07/13/19 07:07 WBC RBC Hgb Hct MCV MCH MCHC RDW Std Deviation RDW Coeff of Rhianna Plt Count MPV Immature Gran % (Auto) Neut % (Auto) Lymph % (Auto) [place] % (Auto) Eos % (Auto) Baso % (Auto) Immature Gran # (Auto) Neut # (Auto) Lymph # (Auto) [place] # (Auto) Eos # (Auto) Baso # (Auto) RBC Morphology PT INR APTT PTT Ratio Sodium 137 Potassium 5.4 H Chloride 101 Carbon Dioxide 22 Anion Gap 14.0 H BUN 93 H Creatinine 8.64 H* Est Cr Clr Drug Dosing 5.5 Est GFR ( Amer) 6.0 Est GFR (Non-Af Amer) 5.1 BUN/Creatinine Ratio 10.8 Glucose 77 POC Glucose Lactate Calcium 8.4 L Phosphorus 6.0 H Magnesium 3.1 H Total Bilirubin AST ALT Alkaline Phosphatase Lactate Dehydrogenase Troponin I NT-Pro-B Natriuret Pep Total Protein Albumin Globulin Albumin/Globulin Ratio Specimen Hemolysis PG Care Time/CCT Total # of Minutes Spent Total Time Spent with Patient: Total time spent is greater than 50% in coordination of care (as documented) at patient's floor/unit and/or counseling patient: Coding Level of Care Code 67241 Subseq Hosp Care Lvl 3 Diagnoses FABIAN (acute kidney injury) N17.9 CKD (chronic kidney disease) stage 3, GFR 30-59 ml/min N18.3 CAD (coronary artery disease), [place] coronary artery I25.110 [place] vs. transplanted heart: [place] heart Associated angina: with unstable angina History of aortic valve replacement with bioprosthetic valve Z95.3 (1) CAD (coronary artery disease), [place] coronary artery [place] vs. transplanted heart: [place] heart Associated angina: with unstable angina Qualified Code(s): I25.110 - Atherosclerotic heart disease of [place] coronary artery with unstable angina pectoris
[2019-07-13] MEDS ORDERED: allopurinoL 100 MG TAB PO SCH (10:30)
[2019-07-13] MEDS: SODIUM BICARBONATE 8.4% 75 MEQ in SODIUM CHLORIDE 0.45 % 1,000 ML IV SCH (11:38)
--- NOTE | 2019-07-13 11:58 | Cardiology Consultation ---
Date of Consultation July 13, 2019 Assessment & Plan (1) FABIAN (acute kidney injury): (2) Acute dehydration: (3) CKD (chronic kidney disease) stage 3, GFR 30-59 ml/min: (4) Aortic insufficiency: (5) History of aortic valve replacement with bioprosthetic valve: (6) CAD (coronary artery disease), [place] coronary artery: The patient has acute on chronic renal failure. It is likely that this is renal failure induced by his recent cardiac catheterization from the x-ray dye. Currently nephrology is on the case and the patient is considering dialysis. At this point I do not believe any additional cardiac testing is indicated. The patient had AVR several years ago and during his recent hospital admission he was noted to have significant aortic insufficiency on the echocardiogram. Blood cultures have been negative so it is unlikely that this is prosthetic valve endocarditis. At some point the aortic insufficiency will have to be reevaluated but at present I think the most important decision is regarding dialysis. We will follow along with you during his hospital stay. History of Present Illness Attending Physician: Hanna Torres MD History of Present Illness This is an 84-year-old male patient with a cardiac history listed as below. He recently was in the hospital due to exertional angina and underwent a cardiac catheterization. That study showed nonobstructive disease and medical management was planned. He was also noted on echocardiography to have aortic insufficiency, unusual for patient who had an AVR. Blood cultures were obtained and failed to have any growth. The patient was subsequently discharged home. He returned to the hospital with complaints of nausea and vomiting. He was admitted with acute on chronic renal failure with an elevated creatinine of 8. Nephrology is following the patient. There is a clinical indication for dialysis but the patient so far has been reluctant to proceed. Cardiac history: 1. Coronary artery disease with history of LAD stenting and coronary artery bypass grafting x1 to obtuse marginal branch vessel 2012. 2. Carotid vascular disease status post left carotid endarterectomy. 3. 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 4. Moderate bioprosthetic aortic valve stenosis per most recent echocardiogram 07/2018 5. 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 Chronic thrombocytopenia 7. History of small right parietal lobe CVA 2016 on chronic dual antiplatelet therapy Allergies Allergy/AdvReac Type Severity Reaction Status Date / Time No Known Allergies Allergy Verified 06/23/19 10:39 Home Medications Home Medications Medication Instructions Recorded Confirmed Type alfuzosin 10 mg tablet,extended 10 mg PO QPM 05/25/19 07/12/19 History release 24 hr allopurinol 100 mg tablet 100 mg PO DAILYBL 05/25/19 07/12/19 History atorvastatin 20 mg tablet 20 mg PO QPM 05/25/19 07/12/19 History clopidogrel 75 mg tablet 75 mg PO DAILYBL 05/25/19 07/12/19 History cyclosporine 0.05 % eye drops in a 1 drp OPB DAILY 05/25/19 07/12/19 History dropperette furosemide 40 mg tablet 80 mg PO QAM 05/25/19 07/12/19 History lorazepam 0.5 mg tablet 0.5 mg PO HS 05/25/19 07/12/19 History spironolactone 50 mg tablet 25 mg PO HS 05/25/19 07/12/19 History vitamins A,C,U-eous-wfpagn 14,320 1 cap PO BID 05/25/19 07/12/19 History unit-226 mg-200 unit capsule Centrum MultiGummies 1 tab PO DAILY 06/23/19 07/12/19 History aspirin [Aspirin Low Dose] 81 mg PO DAILY 06/23/19 07/12/19 History furosemide 40 mg PO DAILYBL 06/23/19 07/12/19 History mometasone [Nasonex] 2 spray INTRANASAL DAILY 06/23/19 07/12/19 History nitroglycerin 0.4 mg SUBLINGUAL UD PRN 06/23/19 07/12/19 History pantoprazole 20 mg PO DAILY 06/23/19 07/12/19 History propranolol 10 mg PO BID #60 tab 06/26/19 07/12/19 Rx diphenoxylate-atropine 1 tab PO DIRECTED 07/12/19 07/12/19 History escitalopram oxalate 10 mg PO DAILY 07/12/19 07/12/19 History ondansetron HCl 4 mg PO DAILY PRN 07/12/19 07/12/19 History Patient History Medical History Anxiety Aortic insufficiency Aortic stenosis CAD (coronary artery disease), [place] coronary artery Cardiac arrest CHF (congestive heart failure) (Acute) CKD (chronic kidney disease) stage 3, GFR 30-59 ml/min (Acute) Enlarged prostate Gastric ulcer Gout Hyperlipidemia Hypertension Thrombocytopenia Transient cerebral ischemia Surgical History Aortic valve replaced History of aortic valve replacement with bioprosthetic valve History of cardiac cath Hx of cataract extraction Hx of cholecystectomy Hx of inguinal hernia repair S/P skin biopsy Family History Father Stroke Hypertension Lung disease Social History Preferred Language: [place] Leonean Communication Ability: Effective 911 Emergency Dispatcher Required: No Beliefs That Will Affect Care: None marital status: / Current Living Situation: Alone current occupational status: retired Feels Safe at Home: Yes Safety Concerns: Feels Safe At This Time Smoking Status: Never smoker Hx Alcohol Use: No Hx Substance Use: No Review of Systems Review of Systems: All systems reviewed & are unremarkable except as noted in HPI & below Nothing additional to add. Physical Exam Physical Exam: General: no acute distress and stated age Head: normocephalic, no masses, lesions, tenderness or abnormalities Eyes: conjunctiva are pink and non-injected, sclera clear Neck: supple, no adenopathy, no bruits, normal jugular venous pulse, no hepatojugular reflux Chest: normal shape and normal respiratory effort Lungs: clear to auscultation and percussion Cardiac Exam: - regular rate & rhythm, no murmurs gallops or rubs - normal S1, normal S2 Pulses: 2(+) throughout Abdomen: abdomen soft, non-tender, no abnormal masses and no hepatosplenomegaly Musculoskeletal: no gait disturbance, no joint inflammation, no deforming arthritis Extremities: no edema and no cyanosis Neuro: grossly normal exam Results & Data ([facility]) Vital Signs (Past 12 Hours) Vital Signs Temp Pulse Pulse Resp BP Pulse Ox 07/13/19 11:46 36.8 C 56 L 17 109/48 L 94 07/13/19 07:49 36.9 C 65 18 93/44 L 90 07/13/19 07:42 69 07/13/19 03:18 36.6 C 68 18 98/42 L 91 Laboratory Results Laboratory Results - last 24 hr 05/07/12/19 07/12/19 12:28 12:28 12:28 WBC 8.50 RBC 4.87 Hgb 16.5 Hct 51.6 MCV 106.0 H MCH 33.9 MCHC 32.0 RDW Std Deviation 62.9 H RDW Coeff of [place]ian[place] 16.2 H Plt Count 76 L MPV 11.7 H Immature Gran % (Auto) 1.2 Neut % (Auto) 76.0 Lymph % (Auto) 15.8 [place] % (Auto) 6.2 Eos % (Auto) 0.7 Baso % (Auto) 0.1 Immature Gran # (Auto) 0.10 H Neut # (Auto) 6.46 Lymph # (Auto) 1.34 [place] # (Auto) 0.53 Eos # (Auto) 0.06 Baso # (Auto) 0.01 RBC Morphology PT 13.7 H INR 1.3 H APTT 28.6 PTT Ratio 1.0 Sodium 136 Potassium 5.5 H Chloride 99 Carbon Dioxide 23 Anion Gap 15.0 H BUN 98 H Creatinine 8.08 H* Est Cr Clr Drug Dosing 5.9 Est GFR ( Amer) 6.5 Est GFR (Non-Af Amer) 5.6 BUN/Creatinine Ratio 12.2 Glucose 105 H POC Glucose Lactate Calcium 9.2 Phosphorus Magnesium 3.3 H Total Bilirubin 1.0 AST 16 ALT 36 Alkaline Phosphatase 75 Lactate Dehydrogenase Troponin I 0.036 NT-Pro-B Natriuret Pep 5036 H Total Protein 6.6 Albumin 3.4 Globulin 3.2 Albumin/Globulin Ratio 1.1 Specimen Hemolysis 07/12/19 07/12/19 07/12/19 12:28 14:50 18:31 WBC RBC Hgb Hct MCV MCH MCHC RDW Std Deviation RDW Coeff of [place] Plt Count MPV Immature Gran % (Auto) Neut % (Auto) Lymph % (Auto) [place] % (Auto) Eos % (Auto) Baso % (Auto) Immature Gran # (Auto) Neut # (Auto) Lymph # (Auto) [place] # (Auto) Eos # (Auto) Baso # (Auto) RBC Morphology PT INR APTT PTT Ratio Sodium 137 Potassium 5.9 H Chloride 99 Carbon Dioxide 23 Anion Gap 15.0 H BUN 96 H Creatinine 8.11 H* Est Cr Clr Drug Dosing 5.9 Est GFR ( Amer) 6.4 Est GFR (Non-Af Amer) 5.6 BUN/Creatinine Ratio 11.8 Glucose 91 POC Glucose Lactate 2.1 H* 1.9 Calcium 8.7 Phosphorus Magnesium Total Bilirubin AST ALT Alkaline Phosphatase Lactate Dehydrogenase Troponin I 0.039 NT-Pro-B Natriuret Pep Total Protein Albumin Globulin Albumin/Globulin Ratio Specimen Hemolysis 07/12/19 07/12/19 07/12/19 18:31 20:14 21:17 WBC RBC Hgb Hct MCV MCH MCHC RDW Std Deviation RDW Coeff of Rhianna Plt Count MPV Immature Gran % (Auto) Neut % (Auto) Lymph % (Auto) [place] % (Auto) Eos % (Auto) Baso % (Auto) Immature Gran # (Auto) Neut # (Auto) Lymph # (Auto) [place] # (Auto) Eos # (Auto) Baso # (Auto) RBC Morphology PT INR APTT PTT Ratio Sodium Potassium Chloride Carbon Dioxide Anion Gap BUN Creatinine Est Cr Clr Drug Dosing Est GFR ( Amer) Est GFR (Non-Af Amer) BUN/Creatinine Ratio Glucose POC Glucose 97 192 H Lactate Calcium Phosphorus Magnesium Total Bilirubin AST ALT Alkaline Phosphatase Lactate Dehydrogenase 321 H Troponin I NT-Pro-B Natriuret Pep Total Protein Albumin Globulin Albumin/Globulin Ratio Specimen Hemolysis 07/12/19 07/13/19 07/13/19 23:03 07:07 07:07 WBC 10.79 RBC 4.66 L Hgb 15.3 Hct 48.5 MCV 104.1 H MCH 32.8 MCHC 31.5 L RDW Std Deviation 61.9 H RDW Coeff of Rhianna 16.4 H Plt Count 60 L MPV 11.0 H Immature Gran % (Auto) 0.8 Neut % (Auto) 76.9 Lymph % (Auto) 11.4 [place] % (Auto) 10.2 Eos % (Auto) 0.6 Baso % (Auto) 0.1 Immature Gran # (Auto) 0.09 H Neut # (Auto) 8.29 H Lymph # (Auto) 1.23 [place] # (Auto) 1.10 H Eos # (Auto) 0.07 Baso # (Auto) 0.01 RBC Morphology Unremarkable PT 14.5 H INR 1.4 H APTT PTT Ratio Sodium 138 Potassium 5.1 Chloride 101 Carbon Dioxide 23 Anion Gap 14.0 H BUN 95 H Creatinine 8.40 H* Est Cr Clr Drug Dosing 5.7 Est GFR ( Amer) 6.2 Est GFR (Non-Af Amer) 5.3 BUN/Creatinine Ratio 11.3 Glucose 101 H POC Glucose Lactate Calcium 8.6 Phosphorus Magnesium Total Bilirubin AST ALT Alkaline Phosphatase Lactate Dehydrogenase Troponin I NT-Pro-B Natriuret Pep Total Protein Albumin Globulin Albumin/Globulin Ratio Specimen Hemolysis 07/13/19 07:07 WBC RBC Hgb Hct MCV MCH MCHC RDW Std Deviation RDW Coeff of Rhianna Plt Count MPV Immature Gran % (Auto) Neut % (Auto) Lymph % (Auto) [place] % (Auto) Eos % (Auto) Baso % (Auto) Immature Gran # (Auto) Neut # (Auto) Lymph # (Auto) [place] # (Auto) Eos # (Auto) Baso # (Auto) RBC Morphology PT INR APTT PTT Ratio Sodium 137 Potassium 5.4 H Chloride 101 Carbon Dioxide 22 Anion Gap 14.0 H BUN 93 H Creatinine 8.64 H* Est Cr Clr Drug Dosing 5.5 Est GFR ( Amer) 6.0 Est GFR (Non-Af Amer) 5.1 BUN/Creatinine Ratio 10.8 Glucose 77 POC Glucose Lactate Calcium 8.4 L Phosphorus 6.0 H Magnesium 3.1 H Total Bilirubin AST ALT Alkaline Phosphatase Lactate Dehydrogenase Troponin I NT-Pro-B Natriuret Pep Total Protein Albumin Globulin Albumin/Globulin Ratio Specimen Hemolysis Medications Administered Current Inpatient Medications Acetaminophen (Tylenol) 650 mg PO Q4H PRN PRN Reason: Pain or Fever Stop: 08/11/19 17:23 Alfuzosin HCl (Uroxatral) 10 mg PO QPM ON LICENSE OF [facility] Stop: 08/11/19 20:59 Last Admin: 07/12/19 20:23 Dose: 10 mg Documented by: Allopurinol (Zyloprim) 100 mg PO DAILYBL ON LICENSE OF [facility] Stop: 08/12/19 10:29 Last Admin: 07/13/19 09:59 Dose: 100 mg Documented by: Aspirin (Ecotrin Ectab) 81 mg PO DAILY ON LICENSE OF [facility] Stop: 08/12/19 08:59 Last Admin: 07/13/19 09:57 Dose: 81 mg Documented by: Atorvastatin Calcium (Lipitor) 20 mg PO QPM ON LICENSE OF [facility] Stop: 08/11/19 20:59 Last Admin: 07/12/19 20:23 Dose: 20 mg Documented by: Clopidogrel Bisulfate (Plavix) 75 mg PO DAILYBL ON LICENSE OF [facility] Stop: 08/12/19 10:29 Last Admin: 07/13/19 10:01 Dose: 75 mg Documented by: Escitalopram Oxalate (Lexapro Tab) 10 mg PO DAILY SELE[place] Stop: 08/12/19 08:59 Last Admin: 07/13/19 09:57 Dose: 10 mg Documented by: Fluticasone Propionate (Flonase) 2 sprays NA DAILY ON LICENSE OF [facility]; Protocol Stop: 08/12/19 08:59 Last Admin: 07/13/19 10:00 Dose: 2 sprays Documented by: Heparin Sodium (Porcine) (Heparin Sodium (Porcine)) 5,000 units SQ Q12 SELENA Stop: 08/11/19 20:59 Last Admin: 07/13/19 09:27 Dose: Not Given Documented by: Sodium Bicarbonate 75 meq/ (Sodium Chloride) 1,075 mls @ 80 mls/hr IV .[id number] ON LICENSE OF [facility] Stop: 08/11/19 22:14 Last Admin: 07/13/19 11:38 Dose: 80 mls/hr Documented by: Lorazepam (Ativan) 0.5 mg PO HS SELENA Stop: 08/11/19 20:59 Last Admin: 07/12/19 22:48 Dose: 0.5 mg Documented by: Miscellaneous (Order Awaiting Action) 1 ea N/A QS ON LICENSE OF [facility] Stop: 08/12/19 00:00 Last Admin: 07/13/19 10:02 Dose: Not Given Documented by: Ondansetron HCl (Zofran) 4 mg IV Q4H PRN PRN Reason: Nausea Stop: 08/11/19 17:23 Pantoprazole Sodium (Protonix) 40 mg PO DAILY ON LICENSE OF [facility]; Protocol Stop: 08/12/19 08:59 Last Admin: 07/13/19 09:57 Dose: 40 mg Documented by: Patiromer (Veltassa) 8.4 gm PO DAILY SELENA Stop: 08/11/19 19:59 Last Admin: 07/12/19 20:16 Dose: 8.4 gm Documented by: Propranolol HCl (Inderal) 10 mg PO BID ON LICENSE OF [facility] Stop: 08/11/19 20:59 Last Admin: 07/13/19 09:58 Dose: Not Given Documented by: (1) CAD (coronary artery disease), [place] coronary artery [place] vs. transplanted heart: [place] heart Associated angina: with unstable angina Qualified Code(s): I25.110 - Atherosclerotic heart disease of [place] coronary artery with unstable angina pectoris
[2019-07-13] MEDS: PATIROMER CALCIUM SORBITEX 8.4 GM PACK PO SCH (14:29)
[2019-07-13 15:45] LABS: BUN Creatinine Ratio 10.6 (10-20); Calcium 8.7 mg/dl (8.5-10.1); Creatinine Clr Calc Pharmacy 5.4 ml/min; Est GFR (African American) 5.7; Potassium 5.7 mmol/L (3.5-5.1)
--- NOTE | 2019-07-13 16:24 | Palliative Care Consultation ---
Date of Consultation July 13, 2019 Assessment & Plan (1) Palliative care encounter: Patient is an 84-year-old male with a past medical history significant for CAD-status post stent placement in, carotid stenosis status post left CEA, history of CVA in 2016, CHF, aortic insufficiency-status post AVR and CKD stage III who presented to the ER on 07/11 with a 2-week history of nausea vomiting and diarrhea. Patient had been recently hospitalized from 06/22-06/25 for an episode of chest pain. Patient was found to be hypotensive, D hydrated with bradycardia. Patient was given IV fluids in the emergency room, creatinine was noted to be 8.08 with a prior baseline of 1.71.9, was as high as 2.43 on 07/01. Patient also noted to have poor urine output-nephrology was consulted and HD discussed. Patient stated he did not want dialysis, he has 3 daughters, each live approximately 2 hours away, who are overwhelmed with this new, acute renal decline. Patient seen and examined-patient had just finished a conversation by phone with 1 of his daughters-patient was tearful. Patient's daughter,Sammy and granddaughter arrived at bedside during my visit-both somewhat distraught with the patient's decision to forego dialysis. Further conversation with the patient, daughter and granddaughter-they voiced understanding why patient would make this decision. They are concerned about his state of mind and that he lost his second approximately 1 year ago in hospice care. Patient's first 40 years ago. Patient has 3 daughters, Princess,Jackie and Sammy. - Patient is firm in his decision, Discussed patient's prognosis at bedside with daughter and granddaughter present-with his poor urine output his life expectancy is approximately 1 week. -Left patient to have private conversation with his daughter-returned later. Daughter willing to have patient return home under hospice care. They would like to use the same hospice they had with his second -which was [facility]. -Did discuss that patient's kidneys may improve-further treatment per nephrology. -Offered patient and family ability to return home this evening, they feel more comfortable if he stays overnight as he is quite fatigued, this will also give other family members to arrive in town. -Current CODE STATUS is DNR -Collaborated with attending physician as well as case management regarding goal of returning home with hospice care. (2) FABIAN (acute kidney injury): Exacerbated by dehydration from nausea vomiting and diarrhea-creatinine continues to rise, was 8.08 on admission, now 8.91. Patient with poor urine output-less than 50 cc in 24 hours. (3) CKD (chronic kidney disease) stage 3, GFR 30-59 ml/min: Prior CKD stage III with baseline creatinine 1.71.9, prior to admission creatinine was 2.43 on 07/01. (4) Aortic insufficiency: Status post AVR-moderate to severe aortic regurg with moderate stenosis (5) CAD (coronary artery disease), [place] coronary artery: Recent hospitalization for chest pain, status post stent placement in 2012 [place] vs. transplanted heart: [place] heart Associated angina: with unstable angina Qualified Code(s): I25.110 - Atherosclerotic heart disease of [place] coronary artery with unstable angina pectoris History of Present Illness Reason for Consultation: Address goals of care Requesting Physician: Dr Mock Attending Physician: Hanna Torres MD History of Present Illness Patient is an 84-year-old male with a past medical history significant for CAD- status post stent placement in, carotid stenosis status post left CEA, history of CVA in 2016, CHF, aortic insufficiency-status post AVR and CKD stage III who presented to the ER on 07/11 with a 2-week history of nausea vomiting and diarrhea. Patient had been recently hospitalized from 06/22-06/25 for an episode of chest pain. Patient was found to be hypotensive, D hydrated with bradycardia. Patient was given IV fluids in the emergency room, creatinine was noted to be 8.08 with a prior baseline of 1.71.9, was as high as 2.43 on 07/01. Patient also noted to have poor urine output-nephrology was consulted and HD discussed. Patient stated he did not want dialysis, he has 3 daughters, each live approximately 2 hours away, who are overwhelmed with this new, acute renal decline. Patient seen and examined-patient had just finished a conversation by phone with 1 of his daughters-patient was tearful. Patient's daughter,Yvettetelle and granddaughter arrived at bedside during my visit-both somewhat distraught with the patient's decision to forego dialysis. Further conversation with the patient, daughter and granddaughter-they voiced understanding why patient would make this decision. They are concerned about his state of mind and that he lost his second approximately 1 year ago in hospice care. Patient's first 40 years ago. Patient has 3 daughters, Princess,Jackie and Sammy. - Patient is firm in his decision, Discussed patient's prognosis at bedside with daughter and granddaughter present-with his poor urine output his life expectancy is approximately 1 week. -Left patient to have private conversation with his daughter-returned later. Daughter willing to have patient return home under hospice care. They would like to use the same hospice they had with his second -which was [facility]. -Offered patient and family ability to return home this evening, they feel more comfortable if he stays overnight as he is quite fatigued, this will also give other family members to arrive in town. -Current CODE STATUS is DNR Allergies Allergy/AdvReac Type Severity Reaction Status Date / Time No Known Allergies Allergy Verified 06/23/19 10:39 Home Medications Home Medications Medication Instructions Recorded Confirmed Type alfuzosin 10 mg tablet,extended 10 mg PO QPM 05/25/19 07/12/19 History release 24 hr allopurinol 100 mg tablet 100 mg PO DAILYBL 05/25/19 07/12/19 History atorvastatin 20 mg tablet 20 mg PO QPM 05/25/19 07/12/19 History clopidogrel 75 mg tablet 75 mg PO DAILYBL 05/25/19 07/12/19 History cyclosporine 0.05 % eye drops in a 1 drp OPB DAILY 05/25/19 07/12/19 History dropperette furosemide 40 mg tablet 80 mg PO QAM 05/25/19 07/12/19 History lorazepam 0.5 mg tablet 0.5 mg PO HS 05/25/19 07/12/19 History spironolactone 50 mg tablet 25 mg PO HS 05/25/19 07/12/19 History vitamins A,C,G-hlwn-nwcrdw 14,320 1 cap PO BID 05/25/19 07/12/19 History unit-226 mg-200 unit capsule Centrum MultiGummies 1 tab PO DAILY 06/23/19 07/12/19 History aspirin [Aspirin Low Dose] 81 mg PO DAILY 06/23/19 07/12/19 History furosemide 40 mg PO DAILYBL 06/23/19 07/12/19 History mometasone [Nasonex] 2 spray INTRANASAL DAILY 06/23/19 07/12/19 History nitroglycerin 0.4 mg SUBLINGUAL UD PRN 06/23/19 07/12/19 History pantoprazole 20 mg PO DAILY 06/23/19 07/12/19 History propranolol 10 mg PO BID #60 tab 06/26/19 07/12/19 Rx diphenoxylate-atropine 1 tab PO DIRECTED 07/12/19 07/12/19 History escitalopram oxalate 10 mg PO DAILY 07/12/19 07/12/19 History ondansetron HCl 4 mg PO DAILY PRN 07/12/19 07/12/19 History Patient History Medical History Anxiety Aortic insufficiency Aortic stenosis CAD (coronary artery disease), [place] coronary artery Cardiac arrest CHF (congestive heart failure) (Acute) CKD (chronic kidney disease) stage 3, GFR 30-59 ml/min (Acute) Enlarged prostate Gastric ulcer Gout Hyperlipidemia Hypertension Thrombocytopenia Transient cerebral ischemia Surgical History Aortic valve replaced History of aortic valve replacement with bioprosthetic valve History of cardiac cath Hx of cataract extraction Hx of cholecystectomy Hx of inguinal hernia repair S/P skin biopsy Family History Father Stroke Hypertension Lung disease Social History Preferred Language: Turkmen Communication Ability: Effective 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 Physical Exam Physical Exam: PE: Patient awake and alert, NAD HEENT: EOMI, hearing within normal limits Respirations: Clear breath sounds, unlabored, adequate sats on room air CV: Regular rate Abdomen: Soft, nontender, not distended Extremities full range of motion, normal strength Neuro: Alert and oriented x4 Results & Data Vital Signs (Past 12 Hours) Vital Signs Temp Pulse Pulse Resp BP Pulse Ox 07/13/19 15:45 98.2 F 65 21 99/52 L 92 07/13/19 11:46 98.2 F 56 L 17 109/48 L 94 07/13/19 07:49 98.4 F 65 18 93/44 L 90 07/13/19 07:42 69 PG Care Time/CCT Total # of Minutes Spent Total Time Spent with Patient: Total time spent 70 minutes with greater than 50% of the time spent at bedside assessing patient goals of care, counseling family as well as providing support to daughter and granddaughter at bedside. Collaborated with attending physician as well as nursing on unit. Coding Level of Care Code 63898 Inpt Consult Level 3 Diagnoses Palliative care encounter Z51.5 FABIAN (acute kidney injury) N17.9 CKD (chronic kidney disease) stage 3, GFR 30-59 ml/min N18.3 Aortic insufficiency I35.1 CAD (coronary artery disease), [place] coronary artery I25.110 [place] vs. transplanted heart: [place] heart Associated angina: with unstable angina Time Spent (min) 70
--- NOTE | 2019-07-13 17:05 | Family Medicine Progress Note ---
Date of Service July 13, 2019 Assessment & Plan (1) Nausea vomiting and diarrhea: 84-year-old male was admitted on 12 Jul 2019 for nausea, vomiting, diarrhea for about two weeks. N/V/D, dehydration: Presently N/V/D resolved since admit. Denies abdominal pain. CT a/p noted possible cystitis, trace ascites, and prostatomegaly (see full report). No evidence of intestinal obstruction. BCx NGTD. - Given moving towards hospice and comfort care, will cancel pending stool studies and C diff. - Stopped his rehydration IVF. Has Zofran prn for nausea. Acute on chronic stage III renal failure: Baseline perhaps Cr 1.8. Presently Cr as high as 8.9. Decreased UOP at home as well. Held home Lasix and spironolactone. Ambrose cath placed. Thought to be due to the dye load from his recent cardiac cath. Suspect ATN. See nephrology notes. - Multiple conversations with the patient, his daughter(s) at bedside, to include nephrology and palliative care. Patient repeatedly states that he does NOT wish to begin dialysis. He is aware that this makes his current renal failure a fatal condition, perhaps with decompensation over the next few days. - Added back Lasix at 80 mg PO daily per nephro recommendations for now. Right pleural effusion: Seen on CT a/p. No present ACS-type symptoms or difficulty breathing. Moderate aortic insufficiency: History of bioprosthetic valve replacement. Had TTE on 29Apr noting EF 65-70%. Had TTE on 01May noting moderate to severe bioprosthetic valve regurgitation and moderate valve stenosis. pCXR noted bibasilar opacities greater on the right suggestive of pneumonia versus pulmonary edema as well as trace pleural effusions. See cardiology recommendations which do not recommend any further cardiac testing. Hyperkalemia: Admit K 5.5, initially responded to calcium, insulin, and has been on patiromer daily. No noted EKG changes. See ARF discussion above. - Will keep him on patiromer until discharge, then discontinue. Hypermagnesemia: Admit Mg 3.3. Suspect related to hypovolemia. Elevated INR: Admit INR 1.3, stable around 1.4 on recheck. Remaining LFTs normal. Ongoing medical issues (will keep on current medications, but likely discontinue on hospital discharge): - HTN, HLD, CAD, cardiac arrest: Continue home aspirin, atorvastatin, Plavix, propranolol. Last cardiac cath on 30Apr. --- Hold home Lasix and spironolactone. - Elevated bilirubin: Noted during last admit. This admit T bili 1.0. - Thrombocytopenia: Long history of same. Admit platelets 76, slightly higher than his baseline. - Anxiety: Continue home escitalopram and lorazepam. - Enlarged prostate: Continue home alfuzosin ER. - Gout: Held home allopurinol due to FABIAN. - Possible GERD: Continue home pantoprazole. - Diverticulosis: Incidental finding on 18May CT a/p. Code status: DNR/DNI (per patients wishes). Diet: NPO for now. DVT prophy: Heparin (though held due to leading to d/c on hospice). PT/OT: Deferred. Disbo: Will transfer to [facility]. Daughters arrived at bedside. [facility]. - See related palliative care and case management notes. (2) Dehydration: (3) Acute renal failure: (4) CKD (chronic kidney disease) stage 3, GFR 30-59 ml/min: (5) Aortic insufficiency: (6) Aortic stenosis: (7) History of aortic valve replacement with bioprosthetic valve: (8) Hyperkalemia: (9) Hypermagnesemia: (10) Elevated INR: (11) Hypertension: (12) Hyperlipidemia: (13) CAD (coronary artery disease): (14) Thrombocytopenia: (15) Anxiety: (16) Enlarged prostate: (17) Gout: Admission and Anticipated Discharge Date Admission Date: July 12, 2019 Supervising Physician Co-Signing Physician Notes I personally examined the patient and verified all aguilar points of history and exam, discussed case, and agree with decision making with Dr. Rubio Patient has made no urine since yesterday. He is adamant that he does not want to start hemodialysis even if it is temporary. He understands what dialysis is and knows someone that was on it. Later in the day, I discussed the case with palliative care who talked to the patient's daughters. I also discussed the case with Dr. Mock of nephrology. Decision was made to pursue comfort measures and plan for home with hospice tomorrow VSS Gen: AAOx3, NAD HEENT: Anicteric sclerae, EOMI CV: RRR 2/6 ZOE at the RUSB Pulm: Diminished breath sounds at the right base, otherwise clear, no wheezes Abd: +BS soft NT ND no masses or hernias Ext: Trace pitting edema right greater than left legs, 2+ DP pulses Skin: No rashes, warm/dry Neuro: Full strength throughout 84-year-old male with history as above, here with intractable nausea/vomiting/diarrhea and acute kidney injury, ATN possibly secondary to recent cardiac catheterization plus nausea/vomiting/diarrhea in the setting of diuretic use Nausea/vomiting/diarrhea have all resolved-advance diet as tolerated Plan for home with hospice tomorrow Prognosis very poor Subjective Spoke with patient earlier this morning, again with Dr. Kothari of nephrology at bedside, and again in the afternoon with patient's daughter at bedside. This morning, patient denied any particular issues. He says that overall he feels about the same as he has over the past couple days. No noted nausea. Vomiting has resolved. Has not had any bowel movement since admission. This morning patient said he wanted to talk to his daughters before considering dialysis. Subsequently, patient expressed to multiple physicians that he does not wish to undergo dialysis. I spoke with the patient and his daughter at bedside for about 20 minutes this afternoon. We discussed at length that if he were not to undergo dialysis within the next 24 or so hours he is at significant risk for worsening potassium, cardiac arrhythmias, altered mental status, and . We discussed that there is the possibility that dialysis could prevent these acute issues but also may not be a permanent solution to possible complete renal failure. Dialysis would also become a significant change to his overall life if he were to become dialysis dependent. Patient expressed understanding of all this and had no questions. He again stated that he does not wish to undergo dialysis at this time. He furthermore reiterated that he is presently DNR/DNI. Review of Systems Review of Systems: Per HPI as above. Physical Exam Physical Exam: GENERAL: Awake, alert, well-appearing, in no acute distress. HENT: Normocephalic, atraumatic. Oropharynx is dry. CARDIAC: +S1S2 RRR, 2/6 systolic murmur. Well-healed sternotomy scar. RESPIRATORY: Clear to auscultation. No wheezes or rales. Normal respiratory effort. GI: +BS, soft, non-distended. No tenderness to palpation, including suprapubic or CVA. No rebound or guarding. EXTREMITIES: No pedal / pre-tibial edema or calf tenderness. Moving all extremities naturally and easily. NEURO: No gross neuro deficits. Lines: Ambrose cath in place. Results & Data ([facility]) Vital Signs (Past 12 Hours) Vital Signs Temp Pulse Pulse Resp BP Pulse Ox 07/13/19 15:45 36.8 C 65 21 99/52 L 92 07/13/19 11:46 36.8 C 56 L 17 109/48 L 94 07/13/19 07:49 36.9 C 65 18 93/44 L 90 07/13/19 07:42 69 Laboratory Results Laboratory Results WBC 10.79 K/uL (4.8-10.8) 07/13/19 07:07 RBC 4.66 M/uL (4.7-6.1) L 07/13/19 07:07 Hgb 15.3 g/dL (14.0-18.0) 07/13/19 07:07 Hct 48.5 % (42-52) 07/13/19 07:07 MCV 104.1 fL (80-100) H 07/13/19 07:07 MCH 32.8 pg (25-34) 07/13/19 07:07 MCHC 31.5 g/dL (32-36) L 07/13/19 07:07 RDW Std Deviation 61.9 fL (36.4-46.3) H 07/13/19 07:07 RDW Coeff of Rhianna 16.4 % (11.5-14.5) H 07/13/19 07:07 Plt Count 60 K/uL (130-400) L 07/13/19 07:07 MPV 11.0 fL (7.4-10.4) H 07/13/19 07:07 Immature Gran % (Auto) 0.8 % 07/13/19 07:07 Neut % (Auto) 76.9 % 07/13/19 07:07 Lymph % (Auto) 11.4 % 07/13/19 07:07 [place] % (Auto) 10.2 % 07/13/19 07:07 Eos % (Auto) 0.6 % 07/13/19 07:07 Baso % (Auto) 0.1 % 07/13/19 07:07 Immature Gran # (Auto) 0.09 K/uL (0.00-0.02) H 07/13/19 07:07 Neut # (Auto) 8.29 K/uL (1.4-6.5) H 07/13/19 07:07 Lymph # (Auto) 1.23 K/uL (1.2-3.4) 07/13/19 07:07 [place] # (Auto) 1.10 K/uL (0.11-0.59) H 07/13/19 07:07 Eos # (Auto) 0.07 K/uL (0-0.5) 07/13/19 07:07 Baso # (Auto) 0.01 K/uL (0-0.2) 07/13/19 07:07 RBC Morphology Unremarkable 07/13/19 07:07 PT 14.5 Seconds (9.0-12.0) H 07/13/19 07:07 INR 1.4 (0.9-1.1) H 07/13/19 07:07 APTT 28.6 Seconds (21.0-31.0) 07/12/19 12:28 PTT Ratio 1.0 07/12/19 12:28 Sodium 135 mmol/L (136-145) L 07/13/19 14:55 Potassium 5.7 mmol/L (3.5-5.1) H 07/13/19 14:55 Chloride 99 mmol/L (98-107) 07/13/19 14:55 Carbon Dioxide 22 mmol/L (21-32) 07/13/19 14:55 Anion Gap 14.0 (3-11) H 07/13/19 14:55 BUN 94 mg/dl (7-18) H 07/13/19 14:55 Creatinine 8.91 mg/dl (0.6-1.4) H* 07/13/19 14:55 Est Cr Clr Drug Dosing 5.4 ml/min 07/13/19 14:55 Est GFR ( Amer) 5.7 07/13/19 14:55 Est GFR (Non-Af Amer) 5.0 07/13/19 14:55 BUN/Creatinine Ratio 10.6 (10-20) 07/13/19 14:55 Glucose 80 mg/dl (70-99) 07/13/19 14:55 POC Glucose 192 mg/dl (70-99) H 07/12/19 21:17 Lactate 1.9 mmol/L (0.4-2.0) 07/12/19 14:50 Calcium 8.7 mg/dl (8.5-10.1) 07/13/19 14:55 Phosphorus 6.0 mg/dl (2.5-4.9) H 07/13/19 07:07 Magnesium 3.1 mg/dl (1.8-2.4) H 07/13/19 07:07 Total Bilirubin 1.0 mg/dl (0.2-1) 07/12/19 12:28 AST 16 U/L (15-37) 07/12/19 12:28 ALT 36 U/L (12-78) 07/12/19 12:28 Alkaline Phosphatase 75 U/L (45-117) 07/12/19 12:28 Lactate Dehydrogenase 321 U/L (87-241) H 07/12/19 18:31 Troponin I 0.039 ng/ml (0-0.045) 07/12/19 18:31 NT-Pro-B Natriuret Pep 5036 pg/ml (0-1800) H 07/12/19 12:28 Total Protein 6.6 gm/dl (6.4-8.2) 07/12/19 12:28 Albumin 3.4 gm/dl (3.4-5.0) 07/12/19 12:28 Globulin 3.2 gm/dl (2.5-4.0) 07/12/19 12:28 Albumin/Globulin Ratio 1.1 (0.9-2) 07/12/19 12:28 Specimen Hemolysis 07/12/19 23:03 Medications Administered Current Inpatient Medications Acetaminophen (Tylenol) 650 mg PO Q4H PRN PRN Reason: Pain or Fever Stop: 08/11/19 17:23 Alfuzosin HCl (Uroxatral) 10 mg PO QPM [facility] Stop: 08/11/19 20:59 Last Admin: 07/12/19 20:23 Dose: 10 mg Documented by: Allopurinol (Zyloprim) 100 mg PO DAILYBL [facility] Stop: 08/12/19 10:29 Last Admin: 07/13/19 09:59 Dose: 100 mg Documented by: Aspirin (Ecotrin Ectab) 81 mg PO DAILY [facility] Stop: 08/12/19 08:59 Last Admin: 07/13/19 09:57 Dose: 81 mg Documented by: Atorvastatin Calcium (Lipitor) 20 mg PO QPM [facility] Stop: 08/11/19 20:59 Last Admin: 07/12/19 20:23 Dose: 20 mg Documented by: Clopidogrel Bisulfate (Plavix) 75 mg PO DAILYBL [facility] Stop: 08/12/19 10:29 Last Admin: 07/13/19 10:01 Dose: 75 mg Documented by: Escitalopram Oxalate (Lexapro Tab) 10 mg PO DAILY [facility] Stop: 08/12/19 08:59 Last Admin: 07/13/19 09:57 Dose: 10 mg Documented by: Fluticasone Propionate (Flonase) 2 sprays NA DAILY [facility]; Protocol Stop: 08/12/19 08:59 Last Admin: 07/13/19 10:00 Dose: 2 sprays Documented by: Heparin Sodium (Porcine) (Heparin Sodium (Porcine)) 5,000 units SQ Q12 [facility] Stop: 08/11/19 20:59 Last Admin: 07/13/19 09:27 Dose: Not Given Documented by: Lorazepam (Ativan) 0.5 mg PO HS [facility] Stop: 08/11/19 20:59 Last Admin: 07/12/19 22:48 Dose: 0.5 mg Documented by: Miscellaneous (Order Awaiting Action) 1 ea N/A QS [facility] Stop: 08/12/19 00:00 Last Admin: 07/13/19 10:02 Dose: Not Given Documented by: Ondansetron HCl (Zofran) 4 mg IV Q4H PRN PRN Reason: Nausea Stop: 08/11/19 17:23 Pantoprazole Sodium (Protonix) 40 mg PO DAILY [facility]; Protocol Stop: 08/12/19 08:59 Last Admin: 07/13/19 09:57 Dose: 40 mg Documented by: Patiromer (Veltassa) 8.4 gm PO DAILY [facility] Stop: 08/11/19 19:59 Last Admin: 07/13/19 14:29 Dose: 8.4 gm Documented by: Propranolol HCl (Inderal) 10 mg PO BID [facility] Stop: 08/11/19 20:59 Last Admin: 05/19/20 09:58 Dose: Not Given Documented by: Resident Activity Tracking Resident Involvement: Resident Care Provided Care Provided: Adult Hospital Medicine (1) Acute renal failure Acute renal failure type: unspecified Qualified Code(s): N17.9 - Acute kidney failure, unspecified
[2019-07-13] MEDS: ALFUZOSIN HCL 10 MG TAB PO SCH (20:36)
[2019-07-13] MEDS: LORazepam 0.5 MG TAB PO SCH (20:36)
[2019-07-13] MEDS: ATORVASTATIN 20 MG TAB PO SCH (20:36)
[2019-07-14] MEDS: ASPIRIN 81 MG ECTAB PO SCH (07:59)
[2019-07-14] MEDS: PROPRANOLOL HCL 10 MG TAB PO SCH (07:59)
[2019-07-14] MEDS: PANTOprazole 40 MG TAB PO SCH (07:59)
[2019-07-14] MEDS: PATIROMER CALCIUM SORBITEX 8.4 GM PACK PO SCH (08:37)
[2019-07-14] MEDS: ESCITALOPRAM OXALATE 10 MG TAB PO SCH (08:37)
[2019-07-14] MEDS: FLUTICASONE PROPIONATE NA SPR 16 GM BTL SCH (08:37)
--- NOTE | 2019-07-14 08:43 | Billing Data ---
Date of Service July 13, 2019 Coding Level of Care Code 56569 Subseq Hosp Care Lvl 3
[2019-07-14] MEDS ORDERED: FUROSEMIDE 80 MG TAB PO SCH (09:00)
[2019-07-14] MEDS: CLOPIDOGREL BISULFATE 75 MG TAB PO SCH (09:48)
--- NOTE | 2019-07-14 09:48 | Discharge Summary ---
Date of Service July 14, 2019 Admission HPI Per Admitting Provider 84-year-old male states that he has been having ongoing nausea, vomiting, and diarrhea for about 2 weeks now. He denies any focal abdominal pain at this time including at present. Seems unclear on why he may have this. He does say that he was seen by his primary care provider (Dr. Gamez) but is unclear on what the evaluation work-up was. He also notes he was recently in the hospital for chest pain and fluid overload. He says that his Lasix dosing was recently decreased but he still has been taking it twice a day throughout this N/V/D time. Only other subjective complaint is generalized feeling of weakness. He denies any known fevers, chest pain, shortness of breath, extremity pains, or other acute concerns. Says his last p.o. was a small amount of cereal yesterday. Says that he was able to void this morning but has some baseline difficulty doing so. No recent changes regarding this. Denies any dysuria or hematuria. Follows with Dr. Owen for cardiology as outpatient. - PMH includes cardiac arrest, gastric ulcer, TIA, CKD stage III, CAD, elevated bilirubin, thrombocytopenia, aortic regurgitation, gout, hypogonadism, enlarged prostate, anxiety, hypertension, hyperlipidemia - PSH includes AVR with bioprosthetic valve, cardiac cath, carotid endarterectomy, cholecystectomy, inguinal hernia repair - Social history includes never smoker. Denies alcohol use. , lives at home alone. Admission Exam Per Admitting Provider GENERAL: Awake, alert, well-appearing, in no acute distress. HENT: Normocephalic, atraumatic. Oropharynx is dry. EYES: Normal conjunctiva. Sclera non-icteric. NECK: Inspection normal. Non-tender. Supple and full ROM. No nuchal rigidity. CARDIAC: +S1S2 RRR, no murmurs. RESPIRATORY: Clear to auscultation. No wheezes or rales. Normal respiratory effort. GI: +BS, soft, non-distended. No tenderness to palpation, including suprapubic or CVA. No rebound or guarding. No appreciable masses. EXTREMITIES: No pedal / pre-tibial edema or calf tenderness. Moving all extremities naturally and easily. NEURO: No gross neuro deficits. Principal Diagnosis Renal failure, resolved nausea/vomiting/diarrhea, pleural effusion Discharge Exam GENERAL: Awake, alert, well-appearing, in no acute distress. HENT: Normocephalic, atraumatic. Oropharynx is dry. CARDIAC: +S1S2 RRR, 2/6 systolic murmur. Well-healed sternotomy scar. RESPIRATORY: Clear to auscultation. No wheezes or rales. Normal respiratory effort. GI: +BS, soft, non-distended. No tenderness to palpation, including suprapubic or CVA. No rebound or guarding. EXTREMITIES: No pedal / pre-tibial edema or calf tenderness. Moving all extremities naturally and easily. NEURO: No gross neuro deficits. Lines: Ambrose cath in place. Discharge Data Allergies Allergy/AdvReac Type Severity Reaction Status Date / Time No Known Allergies Allergy Verified 06/23/19 10:39 Consultations Palliative consultation assessment and plan on July 13, 2019 Patient is an 84-year-old male with a past medical history significant for CAD- status post stent placement in, carotid stenosis status post left CEA, history of CVA in 2016, CHF, aortic insufficiency-status post AVR and CKD stage III who presented to the ER on 07/11 with a 2-week history of nausea vomiting and diarrhea. Patient had been recently hospitalized from 06/22-06/25 for an episode of chest pain. Patient was found to be hypotensive, D hydrated with bradycardia. Patient was given IV fluids in the emergency room, creatinine was noted to be 8.08 with a prior baseline of 1.71.9, was as high as 2.43 on 07/01. Patient also noted to have poor urine output-nephrology was consulted and HD discussed. Patient stated he did not want dialysis, he has 3 daughters, each live approximately 2 hours away, who are overwhelmed with this new, acute renal decline. Patient seen and examined-patient had just finished a conversation by phone with 1 of his daughters-patient was tearful. Patient's daughter,Sammy and granddaughter arrived at bedside during my visit-both somewhat distraught with the patient's decision to forego dialysis. Further conversation with the patient, daughter and granddaughter-they voiced understanding why patient would make this decision. They are concerned about his state of mind and that he lost his second approximately 1 year ago in hospice care. Patient's first 40 years ago. Patient has 3 daughters, Jackie Sánchez and Sammy. - Patient is firm in his decision, Discussed patient's prognosis at bedside with daughter and granddaughter present-with his poor urine output his life expectancy is approximately 1 week. -Left patient to have private conversation with his daughter-returned later. Daughter willing to have patient return home under hospice care. They would like to use the same hospice they had with his second -which was [facility]. -Did discuss that patient's kidneys may improve-further treatment per nephrology. -Offered patient and family ability to return home this evening, they feel more comfortable if he stays overnight as he is quite fatigued, this will also give other family members to arrive in town. -Current CODE STATUS is DNR -Collaborated with attending physician as well as case management regarding goal of returning home with hospice care. Cardiology consultation assessment and plan on July 13, 2019 The patient has acute on chronic renal failure. It is likely that this is renal failure induced by his recent cardiac catheterization from the x-ray dye. Currently nephrology is on the case and the patient is considering dialysis. At this point I do not believe any additional cardiac testing is indicated. The patient had AVR several years ago and during his recent hospital admission he was noted to have significant aortic insufficiency on the echocardiogram. Blood cultures have been negative so it is unlikely that this is prosthetic valve endocarditis. At some point the aortic insufficiency will have to be reevaluated but at present I think the most important decision is regarding dialysis. We will follow along with you during his hospital stay. Nephrology progress note assessment and plan July 13, 2019 Addendum I had a follow up conversation with Mr. Arauz and his daughter, Princess, this afternoon. Mr. Arauz continues to state that he does not want hemodialysis. His daughter Princess is concerned with this decision. More time will be given prior to lifting the NPO order. However, I told them that catheter would unlikely to be placed today. Mr. Arauz understands that he could from renal failure. (1) FABIAN (acute kidney injury): -- Remain oligoanuric -- Hyperkalemic and significantly azotemic, I have suggested that hemodialysis be considered for management of FABIAN -- Clinical presentation consistent with ATN superimposed on CKD -- Unfortunately no response to IV hydration -- I discussed the role of hemodialysis with Mr. Arauz in detail -- I reviewed the indications for dialysis with the patient's daughters at Mr. Arauz's request -- At this time, Mr. Arauz does not want to proceed with hemodialysis -- His daughter's remain hopeful that he will change his mind: Princess can be contacted at [phone] -- Cardiology consult pending -- Remains NPO for possible permcath pending follow up -- I discussed with Dr. Smith this morning, he is available to place permcath today if patient agreeable -- Consider palliative care consultation pending follow up discussion -- Repeat BMP this afternoon -- Renal diet -- CT did not demonstrate obstruction -- Will continue HCO3 gtt at low rate while NPO -- Ambrose intact (2) CKD (chronic kidney disease) stage 3, GFR 30-59 ml/min: -- Baseline creatinine 1.7 to 2.0 mg/dL -- Notable symmetric atrophy -- Guarded prognosis of renal recovery (3) CAD (coronary artery disease), [place] coronary artery: -- Cardiology consultation pending (4) History of aortic valve replacement with bioprosthetic valve: -- Chronic constrictive physiology following replacement -- Diuretics held -- Moderate to severe valvular insufficiency noted -- Cautious IVF challenge continued with close monitoring -- Trial of IV loop diuretics to be considered as needed Ordered Studies Portable chest x-ray on July 12, 2019 IMPRESSION: 1. Bibasilar opacities, greater on the right. The findings may reflect pneumonia or pulmonary edema. Radiographic follow-up is recommended. 2. Small right and trace left pleural effusions. CT abdomen pelvis without contrast on July 12, 2019 IMPRESSION: 1. There is a small to moderate right pleural effusion with associated right basilar consolidation. This could represent atelectasis and/or pneumon ia/aspiration pneumonitis. Clinical correlation will be required. 2. Cardiomegaly and trace left pleural effusion. 3. Pericystic inflammation suggests cystitis. Correlation with clinical findings and urinalysis will be required. 4. There is trace abdominopelvic ascites. 5. Prostatomegaly. 6. Colonic diverticulosis without CT evidence of acute diverticulitis. 7. Additional findings as above. Hospital Course (1) Nausea vomiting and diarrhea: 84-year-old male was admitted on 12 Jul 2019 for nausea, vomiting, diarrhea for about two weeks. N/V/D, dehydration: Presently N/V/D resolved since admit. Denies abdominal pain. CT a/p noted possible cystitis, trace ascites, and prostatomegaly (see full report). No evidence of intestinal obstruction. BCx NGTD. - Given patient has repeatedly elected for hospice, stool studies and C. difficile were cancelled. We stopped his IV hydration as well. Acute on chronic stage III renal failure: Baseline perhaps Cr 1.8. Presently Cr as high as 8.9. Minimal UOP. Thought to be partially due to the dye load from his recent cardiac cath along with N/V/D as above. Suspect ATN. See nephrology notes. Multiple conversations on multiple days/times with the patient, his daughter(s) at bedside, to include nephrology and palliative care. Patient repeatedly states that he does NOT wish to begin dialysis. He is aware that this makes his current renal failure a fatal condition, perhaps with decompensation over the next few days. Right pleural effusion: Seen on CT a/p. No present ACS-type symptoms or difficulty breathing. Was on trial of lasix in hospital. Moderate aortic insufficiency: History of bioprosthetic valve replacement. Recent TTE note valve regurg and stenosis. EF 65-70%. pCXR noted bibasilar opacities greater on the right suggestive of pneumonia versus pulmonary edema as well as trace pleural effusions. See cardiology recommendations which do not r ecommend any further cardiac testing. Hyperkalemia: Admit K 5.5, initially responded to calcium, insulin, and has been on patiromer daily. No noted EKG changes. See ARF discussion above. Was on pa tiromer until discharge, then discontinued. Hypermagnesemia: Admit Mg 3.3. Suspect related to hypovolemia. Elevated INR: Admit INR 1.3, stable around 1.4 on recheck. Remaining LFTs normal. Ongoing medical issues (will discontinue all chronic medications on hospital discharge): - HTN, HLD, CAD, cardiac arrest: Continue home aspirin, atorvastatin, Plavix, propranolol. Last cardiac cath on . --- Hold home spironolactone. Keeping Lasix for now. - Elevated bilirubin: Noted during last admit. This admit T bili 1.0. - Thrombocytopenia: Long history of same. Admit platelets 76, slightly higher than his baseline. - Anxiety: Continue home escitalopram and lorazepam. - Enlarged prostate: Continue home alfuzosin ER. - Gout: Held home allopurinol due to FABIAN. - Possible GERD: Continue home pantoprazole. - Diverticulosis: Incidental finding on 18May CT a/p. Code status: DNR/DNI (per patients wishes). Disbo: Discharge home for home hospice via [facility]. Will send home with roxanol and Ativan (both prn). (2) Dehydration: (3) Acute renal failure: (4) CKD (chronic kidney disease) stage 3, GFR 30-59 ml/min: (5) Aortic insufficiency: (6) Aortic stenosis: (7) History of aortic valve replacement with bioprosthetic valve: (8) Hyperkalemia: (9) Hypermagnesemia: (10) Elevated INR: (11) Hypertension: (12) Hyperlipidemia: (13) CAD (coronary artery disease): (14) Thrombocytopenia: (15) Anxiety: (16) Enlarged prostate: (17) Gout: Total Time Total Time Spent Total Time Spent (In Minutes): > 30 min Discharge Plan Discharge Items Patient Disposition: Hospice - Home Reason For Visit: RENAL FAILURE, DEHYDRATION Discharge Diagnosis: Renal failure, nausea/vomiting/diarrhea, dehydration, right pleural effusion Activity: Per Instructions section Non-emergency contact: Primary Care Provider Call non-emergency contact if: you have any medication questions Follow-up/Referrals: Mario Gamez MD [Primary Care Provider] - Diet: Regular Addtl Attending Provider Instructions: You were admitted to the hospital on July 12, 2019 regarding nausea, vomiting, and diarrhea for about two weeks. While in the hospital, we evaluated the following issues: Nausea, vomiting, diarrhea, and dehydration: Fortunately all of these issues seem to have symptomatically improved during your hospital stay. Kidney failure: As you know from discussions with your hospitalist primary team, as well as the kidney and palliative care teams, your kidneys have stopped working. Because of the direct risks to your life over the next few days due to the kidney failure, we discussed at length the possibility of dialysis. It is unknown whether you would need dialysis for the rest of your life or if your kidneys would eventually recover. If you do not undergo at least temporary dialysis it is very likely that you will from the kidney failure over the next few days. We have listened to your wishes, in conjunction with discussions with your family, and honor your desire to go home on home hospice without starting dialysis. - Case management has helped arrange for [facility] to help at home at the time of your hospital discharge. - We will send you home with two medications: --- Roxanol (oral morphine) can help with any pain or difficulty breathing. --- Ativan (lorazepam) can help with any anxiety. Your hospice team can help with managing these medications as well. Hyperkalemia: This is where the potassium level in your blood becomes too high as a result of your kidney failure. As the potassium level rises your heart will not beat properly and would likely lead to cardiac arrest (). This will likely continue to rise without dialysis treatment. Aortic valve issues: While in the hospital you had cardiology evaluation. They did not recommend any immediate heart procedures or evaluations. They recommended addressing your kidney failure as discussed above. Per your wishes, you are being discharged to home hospice. Please continue to work with your hospice and palliative care teams to support your end-of-life care. Of course, if you were to change your mind, you are welcome to return to the emergency department. However, your condition may be quite grave and not recoverable at that point. Pending Studies at Discharge: No Stand-Alone Forms: My [facility] [address] [facility] Medications and DC Order Prescriptions: New morphine concentrate 100 mg/5 mL (20 mg/mL) solution 5 mg PO Q1H PRN (Reason: breathlessness or pain) Qty: 30 RF: 0 lorazepam 1 mg tablet 1 mg sublingual Q6H PRN (Reason: anxiety or agitation) Qty: 10 RF: 0 Discontinued cyclosporine 0.05 % dropperette 1 drp OPB DAILY RF: 0 lorazepam 0.5 mg tablet 0.5 mg PO HS RF: 0 allopurinol 100 mg tablet 100 mg PO DAILYBL RF: 0 clopidogrel 75 mg tablet 75 mg PO DAILYBL RF: 0 atorvastatin 20 mg tablet 20 mg PO QPM RF: 0 furosemide 40 mg tablet 80 mg PO QAM RF: 0 PreserVision AREDS [id number] capsule 1 cap PO BID RF: 0 spironolactone 50 mg tablet 25 mg PO HS RF: 0 alfuzosin 10 mg tablet extended release 24 hr 10 mg PO QPM RF: 0 ondansetron HCl 4 mg tablet 4 mg PO DAILY PRN (Reason: Nausea) RF: 0 diphenoxylate-atropine 2.5-0.025 mg tablet 1 tab PO DIRECTED RF: 0 escitalopram oxalate 10 mg tablet 10 mg PO DAILY RF: 0 furosemide 40 mg Tablet 40 mg PO DAILYBL RF: 0 aspirin [Aspirin Low Dose] 81 mg Tablet,Delayed Release (Dr/Ec) 81 mg PO DAILY RF: 0 pantoprazole 20 mg Tablet,Delayed Release (Dr/Ec) 20 mg PO DAILY RF: 0 nitroglycerin 0.4 mg Tablet, Sublingual 0.4 mg sublingual UD PRN (Reason: Chest Pain) RF: 0 mometasone [Nasonex] 50 mcg/actuation [place],Non-Aerosol 2 spray INTRANASAL DAILY RF: 0 Centrum MultiGummies 150 mcg Tablet,Chewable 1 tab PO DAILY RF: 0 propranolol 10 mg tablet 10 mg PO BID Qty: 60 RF: 0 Discharge Orders: Discharge Order (Routine); Ordered 07/14/19 Ordered By: Shola Rubio Admission Data Admit Date/Time: 07/12/19 15:11 Attending Provider: Hanna Torres Admit Provider: Shola Rubio Primary Care Provider: Mario Gamez Other Providers: Edvin Mock ; Bhavik Morrow ; Samara Muñoz Other Interventions: Discharge Summary Assessment (RN) Last Done: 07/14/19 14:06 DC Date/Time DO NOT enter until pt leaves facility: 07/14/19 16:25 Supervising Physician Co-Signing Physician Notes I personally examined the patient and verified all aguilar points of history and exam, discussed case, and agree with decision making with Dr. Rubio Patient continues to be anuric. He denies any further nausea, no pain. He remains resolute that he does not want to start hemodialysis. Plan is for home with hospice today. Discussed his care with his granddaughter at the bedside. VSS Gen: AAOx3, NAD HEENT: Anicteric sclerae, EOMI CV: RRR 2/6 ZOE at the RUSB Pulm: Diminished breath sounds at the right base, otherwise clear, no wheezes Abd: +BS soft NT ND no masses or hernias Ext: Trace pitting edema right greater than left legs, 2+ DP pulses Skin: No rashes, warm/dry 84-year-old male with history as above, here with intractable nausea/vomiting/diarrhea and acute kidney injury, ATN possibly secondary to recent cardiac catheterization plus nausea/vomiting/diarrhea in the setting of diuretic use Nausea/vomiting/diarrhea have all resolved-advance diet as tolerated Remains anuric and declining hemodialysis Plan for home with hospice today Prognosis very poor, expect him to pass away within the week. Resident Activity Tracking Resident Involvement: Resident Care Provided Care Provided: Adult [facility]
--- NOTE | 2019-07-14 10:33 | Nephrology Progress Note ---
Date of Service July 14, 2019 Assessment & Plan (1) FABIAN (acute kidney injury): Remains oligoanuric. Palliative management discussed with patient today. Low dose loop diuretic use may help with salt retention and would be considered. The use of a K binder to help regulate potassium as tolerated may also be considered. Brandyn tolerated Patiromer well during his admission. (2) CKD (chronic kidney disease) stage 3, GFR 30-59 ml/min: Patient has refused hemodialysis. (3) CAD (coronary artery disease), [place] coronary artery: Case discussed with Dr. Morrow this AM. (4) History of aortic valve replacement with bioprosthetic valve: Continue low dose loop diuretic for fluid retention. Admission and Anticipated Discharge Date Admission Date: July 12, 2019 Subjective No acute events overnight. Brandyn plans to go home with hospice today. He does not want dialysis. He feels reasonably well. He denied any complaints or concerns. Review of Systems Review of Systems: All systems reviewed & are unremarkable except as noted in HPI & below Results & Data (MN) Vital Signs (Past 12 Hours) Vital Signs Temp Pulse Resp BP BP Pulse Ox 07/14/19 07:24 36.9 C 69 20 125/47 L 92 07/14/19 00:24 36.6 C 69 18 115/59 L 92 Laboratory Results Laboratory Results - last 24 hr 07/13/19 14:55 Sodium 135 L Potassium 5.7 H Chloride 99 Carbon Dioxide 22 Anion Gap 14.0 H BUN 94 H Creatinine 8.91 H* Est Cr Clr Drug Dosing 5.4 Est GFR ( Amer) 5.7 Est GFR (Non-Af Amer) 5.0 BUN/Creatinine Ratio 10.6 Glucose 80 Calcium 8.7 PG Care Time/CCT Total # of Minutes Spent Total Time Spent with Patient: Total time spent is greater than 50% in coordination of care (as documented) at patient's floor/unit and/or counseling patient: Coding Level of Care Code 80386 Subseq Hosp Care Lvl 3 Diagnoses FABIAN (acute kidney injury) N17.9 CKD (chronic kidney disease) stage 3, GFR 30-59 ml/min N18.3 CAD (coronary artery disease), [place] coronary artery I25.110 [place] vs. transplanted heart: [place] heart Associated angina: with unstable angina History of aortic valve replacement with bioprosthetic valve Z95.3 (1) CAD (coronary artery disease), [place] coronary artery [place] vs. transplanted heart: [place] heart Associated angina: with unstable angina Qualified Code(s): I25.110 - Atherosclerotic heart disease of [place] coronary artery with unstable angina pectoris
--- NOTE | 2019-07-23 11:57 | Billing Data ---
Date of Service July 14, 2019 Coding Level of Care Code D/C Day Management >30 mins
== END 2019-07-14 16:25 | disposition hospice, home (50) | DRG 698 ==
LOC: ED 11:32 → 2S 15:11 → 2N 07-13 17:38
DX: I25.2 Old myocardial infarction; Z51.5 Encounter for palliative care; T50.8X5A Adverse effect of diagnostic agents, initial encounter; E86.0 Dehydration; R11.2 Nausea with vomiting, unspecified; Z79.899 Other long term (current) drug therapy; R79.1 Abnormal coagulation profile; E78.5 Hyperlipidemia, unspecified; Z82.49 Family history of ischemic heart disease and other diseases of the circulatory system; Z79.02 Long term (current) use of antithrombotics/antiplatelets; E83.41 Hypermagnesemia; Z79.82 Long term (current) use of aspirin; T82.857A Stenosis of other cardiac prosthetic devices, implants and grafts, initial encounter; K21.9 Gastro-esophageal reflux disease without esophagitis; Z86.73 Personal history of transient ischemic attack (TIA), and cerebral infarction without residual deficits; N17.0 Acute kidney failure with tubular necrosis; I35.2 Nonrheumatic aortic (valve) stenosis with insufficiency; F41.9 Anxiety disorder, unspecified; Z95.5 Presence of coronary angioplasty implant and graft; D69.6 Thrombocytopenia, unspecified; J90 Pleural effusion, not elsewhere classified; Z83.6 Family history of other diseases of the respiratory system; Z82.3 Family history of stroke; R19.7 Diarrhea, unspecified; Z66 Do not resuscitate; N99.0 Postprocedural (acute) (chronic) kidney failure; I12.9 Hypertensive chronic kidney disease with stage 1 through stage 4 chronic kidney disease, or unspecified chronic kidney disease; M10.9 Gout, unspecified; Z95.1 Presence of aortocoronary bypass graft; N18.3 Chronic kidney disease, stage 3 (moderate); E87.5 Hyperkalemia; N40.0 Benign prostatic hyperplasia without lower urinary tract symptoms; I25.10 Atherosclerotic heart disease of native coronary artery without angina pectoris